=== PATIENT | male | born 1945 | race African-American/Black ===

== ENCOUNTER 2017-11-18 11:40 | Inpatient (IN) | payer MEDICARE ==
--- OUTSIDE RECORDS SUMMARY | 2017-11-18 11:43 | XMS REPORT | Clinical Summary ---
Author Author [facility] Organization [facility] Address Unknown Phone Unavailable Care Team Providers Care Passenger Booking Clerk Name Role Phone PCP Unavailable Allergies No Known Allergies Current Medications Prescription Sig. Disp. Refills Start End Date Status Date amantadine HCl Take 1 capsule (100 mg 60 capsule 0 08/06/20 Active (SYMMETREL) 100 mg total) by mouth 2 (two) 17 18 capsule times daily with breakfast and lunch. amLODIPine (NORVASC) 10 Take 1 tablet (10 mg 30 tablet 0 08/06/20 Active MG tablet total) by mouth daily. 17 18 arformoterol (BROVANA) 15 Take 2 mLs (15 mcg total) 120 mL 0 08/06/20 Active mcg/2 mL nebulizer by nebulization 2 (two) 17 solution times daily. aspirin 81 MG EC tablet Take 1 tablet (81 mg 30 tablet 0 08/06/20 Active total) by mouth daily. 17 18 atorvastatin (LIPITOR) 10 Take 1 tablet (10 mg 30 tablet 0 08/06/20 08/06/20 Active MG tablet total) by mouth nightly. 17 18 carvedilol (COREG) 25 MG Take 1 tablet (25 mg 60 tablet 0 08/06/20 08/06/20 Active tablet total) by mouth 2 (two) 17 18 times daily with breakfast and dinner. cetirizine-pseudoephedrin Take 1 tablet by mouth 2 20 tablet 0 08/06/20 Active e (ZYRTEC-D) 5 mg-120 mg (two) times daily. 17 18 per tablet gabapentin (NEURONTIN) Take 1 capsule (300 mg 120 capsule 0 08/06/20 08/06/20 Active 300 MG capsule total) by mouth 4 (four) 17 18 times daily. hydroxychloroquine Take 1 tablet (200 mg 60 tablet 0 08/06/20 Active (PLAQUENIL) 200 mg tablet total) by mouth 2 (two) 17 18 times daily. insulin NPH (HUMULIN Use as directed. 10 mL 0 08/06/20 08/06/20 Active N,NOVOLIN N) 100 unit/mL 17 18 injection insulin Administer NPH as 100 Syringe 1 08/06/20 Active syringe,safetyneedle 1 mL prescribed. 17 30 gauge x 5/16" Syrg lancets [facility] [place] Monitor fasting and 50 each 0 08/06/20 Active bedtime glucose levels. 17 levothyroxine (SYNTHROID, Take 1 tablet (150 mcg 30 tablet 0 08/07/20 08/07/20 Active LEVOTHROID) 150 MCG total) by mouth Every 17 18 tablet morning on an empty stomach. mycophenolate (CELLCEPT) Take 2 tablets (1,000 mg 120 tablet 0 08/06/20 Active 500 mg tablet total) by mouth 2 (two) 17 18 times daily. nystatin (MYCOSTATIN) Apply topically 2 (two) 15 g 0 08/06/20 Active 100,000 unit/gram powder times daily. 17 18 potassium chloride SA Take 1 tablet (10 mEq 30 tablet 0 08/07/20 Active (K-DUR,KLOR-CON) 10 MEQ total) by mouth daily. 17 18 tablet senna (SENOKOT) 8.6 mg Take 1 tablet (8.6 mg 30 tablet 0 08/06/20 Active tablet total) by mouth daily 17 18 with lunch. furosemide (LASIX) 20 MG Take 20 mg by mouth. Active tablet HYDROcodone-acetaminophen Take 1 tablet by mouth. 08/15/20 Active (NORCO 10-325) 10-325 mg 17 per tablet predniSONE (DELTASONE) 5 Take 10 mg by mouth. 08/15/20 Active MG tablet 17 traZODone (DESYREL) 50 MG Take 50 mg by mouth. Active tablet ipratropium-albuterol Inhale by mouth via Active (DUO-NEB) 0.5 mg-3 mg(2.5 inhaler. mg base)/3 mL nebulizer solution budesonide (PULMICORT) Inhale 0.5 mg by mouth Active 0.5 mg/2 mL nebulizer via inhaler. solution calcitriol (ROCALTROL) Take 0.5 mcg by mouth. Active 0.5 MCG capsule hydroCHLOROthiazide Take 12.5 mg by mouth. Active (HYDRODIURIL) 12.5 MG tablet losartan (COZAAR) 50 MG Take 50 mg by mouth. Active tablet atorvastatin (LIPITOR) 10 Take 10 mg by mouth 07/06/20 Discontin MG tablet nightly. 17 ued cyanocobalamin (VITAMIN Inject 1,000 mcg 07/06/20 Discontin B-12) 1,000 mcg/mL intramuscularly every 30 17 ued injection (thirty) days. levothyroxine (SYNTHROID, Take 150 mcg by mouth 07/06/20 Discontin LEVOTHROID) 150 MCG daily. 17 ued tablet gabapentin (NEURONTIN) Take 1 capsule (400 mg 0 06/15/20 07/06/20 Discontin 400 MG capsule total) by mouth 3 (three) 15 17 ued times daily. hydroxychloroquine Take 200 mg by mouth 2 07/06/20 Discontin (PLAQUENIL) 200 mg tablet (two) times daily. 17 ued sitaGLIPtin (JANUVIA) 50 Take 50 mg by mouth 07/17/20 Discontin MG tablet daily. 17 ued docusate sodium (COLACE) Take 100 mg by mouth 2 07/17/20 Discontin 100 MG capsule (two) times daily as 17 ued needed . HYDROcodone-acetaminophen Take 1 tablet by mouth 07/06/20 Discontin (NORCO 10-325) 10-325 mg every 6 (six) hours as 17 ued per tablet needed for Pain. losartan-hydrochlorothiaz Take 1 tablet by mouth 07/06/20 Discontin phillip (HYZAAR) 50-12.5 mg daily. 17 ued per tablet amLODIPine (NORVASC) 10 Take 1 tablet (10 mg 30 tablet 1 09/23/19 Discontin MG tablet total) by mouth daily. 17 17 ued furosemide (LASIX) 40 MG Take 1 tablet (40 mg 30 tablet 1 09/23/19 07/17/20 Discontin tablet total) by mouth daily. 17 17 ued metoprolol (LOPRESSOR) 50 Take 1 tablet (50 mg 60 tablet 1 09/23/19 07/17/20 Discontin MG tablet total) by mouth 2 (two) 17 17 ued times daily. insulin NPH Inject 25 Units 30 mL 1 09/23/19 07/06/20 Discontin (HUMULIN,NOVOLIN) 100 subcutaneously 2 (two) 17 17 ued unit/mL injection times daily before meals. insulin Administer NPH as 100 Syringe 1 09/23/19 08/06/20 Discontin syringe,safetyneedle 1 mL prescribed. 17 17 ued 30 gauge x 5/16" Syrg mometasone-formoterol Inhale 2 puffs by mouth 13 g 1 09/23/19 Discontin (DULERA) 100-5 via inhaler 2 (two) times 17 17 ued mcg/actuation inhaler daily. tiotropium (SPIRIVA) 18 Inhale 1 capsule (18 mcg 30 capsule 1 08/06/20 Discontin mcg inhalation capsule total) by mouth via 17 17 ued inhaler daily. albuterol HFA (PROVENTIL Inhale 1 puff by mouth 1 Inhaler 1 09/23/19 07/06/20 Discontin HFA) 90 mcg/actuation via inhaler every 6 (six) 17 17 ued inhaler hours as needed for Wheezing or Shortness of Breath. glimepiride (AMARYL) 1 MG Take 1 tablet (1 mg 30 tablet 1 09/23/19 07/06/20 Discontin tablet total) by mouth every 17 17 ued morning before breakfast. predniSONE (DELTASONE) 10 Take 1 tablet (10 mg 30 tablet 1 10/01/19 11/22/19 Discontin MG tablet total) by mouth daily. 17 17 ued glucometer (FREESTYLE) Monitor fasting and 1 each 0 09/23/19 Discontin [facility] [place] bedtime glucose levels. 17 17 ued lancets [facility] [place] Monitor fasting and 50 each 0 09/23/19 08/06/20 Discontin bedtime glucose levels. 17 17 ued BLOOD-GLUCOSE METER 1 strip by Miscellaneous 30 each 0 09/23/19 Discontin (BLOOD GLUCOSE TEST route 2 (two) times daily 17 17 ued STRIPS) ([facility] [place]) [facility] [place] Monitor fasting and bedtime glucose levels. predniSONE (DELTASONE) 20 Take 1 tablet (20 mg 30 tablet 0 11/22/19 07/06/20 Discontin MG tablet total) by mouth daily. 17 17 ued carvedilol (COREG) 25 MG Take 25 mg by mouth 2 07/06/20 Discontin tablet (two) times daily with 17 ued breakfast and dinner. azaTHIOprine (IMURAN) 50 Take 50 mg by mouth 07/17/20 Discontin mg tablet daily. 17 ued torsemide (DEMADEX) 20 MG Take 20 mg by mouth 07/17/20 Discontin tablet daily. 17 ued traZODone (DESYREL) 100 Take 100 mg by mouth 07/17/20 Discontin MG tablet nightly. 17 ued calcitriol (ROCALTROL) Take 0.5 mcg by mouth 08/06/20 Discontin 0.5 MCG capsule daily. 17 ued potassium chloride Take 10 mEq by mouth 07/06/20 Discontin (KLOR-CON) 10 MEQ CR daily. 17 ued tablet ondansetron (ZOFRAN) 4 MG Take 1 tablet (4 mg 12 tablet 0 12/03/19 12/10/19 tablet total) by mouth 2 (two) 17 17 times daily as needed for Nausea for up to 7 days. ondansetron (ZOFRAN) 4 MG Take 1 tablet (4 mg 12 tablet 0 12/03/19 12/10/19 tablet total) by mouth every 6 17 17 (six) hours for 7 days. ondansetron (ZOFRAN) 4 MG Take 1 tablet (4 mg 12 tablet 0 06/09/20 06/16/20 tablet total) by mouth every 6 17 17 (six) hours for 7 days. aspirin-calcium carbonate Take 81 mg by mouth. 07/17/20 Discontin 81 mg-300 mg calcium(777 17 ued mg) Tab fluticasone-salmeterol Inhale 1 puff by mouth 07/02/20 08/06/20 Discontin 232-14 mcg/actuation AePB via inhaler. 17 17 ued ipratropium (ATROVENT Inhale 2 puffs by mouth 01/25/20 08/06/20 Discontin HFA) 17 mcg/actuation via inhaler. 17 17 ued inhaler mycophenolate (CELLCEPT) 2 tab twice a day. 07/02/20 08/06/20 Discontin 500 mg tablet 17 17 ued promethazine (PHENERGAN) Take 25 mg by mouth. 05/02/20 08/06/20 Discontin 25 MG tablet 17 17 ued albuterol HFA (VENTOLIN Inhale 2 puffs by mouth 11/01/19 08/06/20 Discontin HFA) 90 mcg/actuation via inhaler. 17 17 ued inhaler amLODIPine (NORVASC) 10 TAKE ONE (1) TABLET(S) BY 06/20/20 08/06/20 Discontin MG tablet MOUTH ONCE A DAY. 17 17 ued atorvastatin (LIPITOR) 10 TAKE ONE (1) TABLET(S) BY 07/11/20 08/06/20 Discontin MG tablet MOUTH EVERY NIGHT. 16 17 ued carvedilol (COREG) 25 MG Take 25 mg by mouth. 08/06/20 Discontin tablet 17 ued cyanocobalamin (VITAMIN 1,000 mcg. 05/02/20 08/06/20 Discontin B-12) 1,000 mcg/mL 17 17 ued injection gabapentin (NEURONTIN) TAKE 1-2 CAPSULES BY 06/06/20 08/06/20 Discontin 400 MG capsule MOUTH 4 TIMES DAILY 17 17 ued glimepiride (AMARYL) 2 MG Take 2 mg by mouth. 01/18/20 08/06/20 Discontin tablet 17 17 ued HYDROcodone-acetaminophen Take 1 tablet by mouth. 06/10/20 08/06/20 Discontin (NORCO 10-325) 10-325 mg 17 17 ued per tablet hydroxychloroquine Take 200 mg by mouth. 02/01/20 08/06/20 Discontin (PLAQUENIL) 200 mg tablet 17 17 ued insulin NPH Inject 35 Units 08/06/20 Discontin (HUMULIN,NOVOLIN) 100 subcutaneously. 17 ued unit/mL injection levothyroxine (SYNTHROID, Take 150 mcg by mouth. 09/27/19 08/06/20 Discontin LEVOTHROID) 150 MCG 17 17 ued tablet losartan-hydroCHLOROthiaz TAKE ONE (1) TABLET(S) BY 08/08/20 08/06/20 Discontin phillip (HYZAAR) 50-12.5 mg MOUTH DAILY. 16 17 ued per tablet potassium chloride SA TAKE ONE (1) TABLET(S) BY 05/25/20 08/06/20 Discontin (K-DUR,KLOR-CON) 10 MEQ MOUTH ONCE A DAY. 17 17 ued tablet predniSONE (DELTASONE) 5 5 tab a day. Taper as 07/02/20 08/06/20 Discontin MG tablet directed by 17 17 ued diclofenac (VOLTAREN) 1 % Apply to painful area of 100 g 0 07/06/20 08/06/20 Discontin Gel back every 6 hours as 17 17 ued needed for pain. HYDROcodone-acetaminophen Take 1 tablet by mouth 20 tablet 0 07/06/20 07/16/20 (NORCO 10-325) 10-325 mg every 4 (four) hours as 17 17 per tablet needed for Pain for up to 10 days. Max Daily Amount: 6 tablets aspirin 81 MG EC tablet Take 81 mg by mouth 08/06/20 Discontin daily. 17 ued sulfamethoxazole-trimetho Take 1 tablet by mouth 3 08/06/20 Discontin prim (BACTRIM DS) 800-160 (three) times a week. 17 ued mg per tablet budesonide (PULMICORT) Take 2 mLs (0.5 mg total) 120 mL 0 08/06/20 09/24/19 Discontin 0.5 mg/2 mL nebulizer by nebulization 2 (two) 17 18 ued solution times daily. calcitriol (ROCALTROL) Take 1 capsule (0.5 mcg 30 capsule 0 08/06/20 09/24/19 Discontin 0.5 MCG capsule total) by mouth daily. 17 18 ued docusate sodium (COLACE) Take 1 capsule (100 mg 40 capsule 0 08/06/20 08/16/20 100 MG capsule total) by mouth 2 (two) 17 17 times daily for 10 days. ipratropium-albuterol Take 3 mLs by 540 mL 0 08/06/20 09/24/19 Discontin (DUO-NEB) 0.5 mg-3 mg(2.5 nebulization every 4 17 18 ued mg base)/3 mL nebulizer (four) hours for 360 solution days. lidocaine (LIDODERM) 5 % Place 1 patch onto the 20 patch 0 08/06/20 09/05/20 patch skin daily for 30 days 17 17 Remove & Discard patch within 12 hours or as directed by . losartan (COZAAR) 50 MG Take 1 tablet (50 mg 30 tablet 0 08/06/20 Discontin tablet total) by mouth daily. 17 18 ued hydroCHLOROthiazide Take 1 capsule (12.5 mg 30 capsule 0 08/06/20 Discontin (MICROZIDE) 12.5 mg total) by mouth daily. 17 18 ued capsule methylPREDNISolone Take 1 tablet (8 mg 7 tablet 0 08/06/20 08/13/20 (MEDROL) 8 MG tablet total) by mouth Medrol 17 17 nightly for 7 days. methylPREDNISolone Take 1 tablet (4 mg 21 tablet 0 08/06/20 (MEDROL) 4 MG tablet total) by mouth after 17 17 lunch for 7 days. methylPREDNISolone Take 1 tablet (4 mg 10 tablet 0 08/07/20 (MEDROL) 4 MG tablet total) by mouth taper 17 17 from 4 doses each day to 1 dose and stop for 7 days. sulfamethoxazole-trimetho Take 1 tablet (160 mg of 12 tablet 0 08/14/20 prim (BACTRIM DS) 800-160 trimethoprim total) by 17 17 mg per tablet mouth 3 (three) times a week for 7 days. traZODone (DESYREL) 50 MG Take 1 tablet (50 mg 30 tablet 0 08/06/20 09/05/20 tablet total) by mouth nightly 17 17 for 30 days. Active Problems Problem Noted Date Dehydration 11/20/2016 Mixed connective tissue disease ([facility]) 11/20/2016 ILD (interstitial lung disease) ([facility]) 11/20/2016 DM type 2 (diabetes mellitus, type 2) ([facility]) 11/20/2016 PVD (peripheral vascular disease) ([facility]) 11/20/2016 Hypokalemia 11/19/2016 Generalized weakness 11/19/2016 ILD (interstitial lung disease) ([facility]) 09/18/2016 COPD exacerbation ([facility]) 09/18/2016 Acute on chronic renal failure ([facility]) 06/14/2015 ATN (acute tubular necrosis) ([facility]) 06/14/2015 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 LORENA treated with BiPAP 06/14/2015 Acute GI bleeding 05/31/2015 Shortness of breath 02/01/2015 Pulmonary hemorrhage 09/20/2014 Lung nodule, multiple 09/20/2014 Duodenal ulcer 09/20/2014 Fever 09/14/2014 Leukocytosis 09/14/2014 Lupus 09/14/2014 Rheumatoid arthritis ([facility]) 09/14/2014 Anemia 09/11/2014 S/P AKA (above knee amputation) ([facility]) 04/14/2014 Overview: SNOMED/[place] [id number] 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 PAD (peripheral artery disease) s/p redo FEMPOP 04/01/2014 GI AVM (gastrointestinal arteriovenous vascular malformation) Encounters Date Type Specialty Care Team Description 09/24/2017 Emergency Emergency Medicine Tejal Lo MD Left elbow pain (Primary Dx) 09/24/2017 Orders Only General Internal Medicine 07/25/2017 [facility] Physical Medicine and Jose, Acute GI bleeding;ATN - Encounter Rehabilitation MD Jim (acute tubular necrosis) 08/06/2017 ([facility]);Generalized weakness;Status post bilateral above knee amputation ([facility]);Impaired mobility and ADLs;Gait abnormality;Minor neurocognitive disorder 07/18/2017 Orders Only General Internal Medicine 07/17/2017 [facility] Cardiology Carley Staton Acute GI bleeding - Encounter MD Agapito (Primary Dx);Physical 07/25/2017 Roslyn Mosley MD deconditioning;Generalize d weakness;Functional gait abnormality 07/06/2017 Emergency Emergency Medicine Analy Pruitt, Acute bilateral low back MD pain without sciatica (Primary Dx);Generalized weakness 06/09/2017 Emergency Emergency Medicine Toma Alberto MD Shortness of breath (Primary Dx);Nausea 06/09/2017 Orders Only General Internal Medicine 12/02/2016 Emergency Emergency Medicine Za Wiley MD Dehydration 11/19/2016 [facility] Cardiology Timothy Whitney MD Hypokalemia; Generalized - Encounter Cj Laureano, weakness;Elevated 11/21/2016 troponin;Shortness of [place], Karlo Smith MD breath 11/19/2016 Orders Only General Internal Medicine after 11/17/2016 Family History Medical History Relation Name Comments Colon cancer Father Heart disease Mother Prostate cancer Paternal Uncle Colon cancer Sister Relation Name Status Comments Father Mother Paternal Uncle Sister Social History Tobacco Use Types Packs/Day Years Used Date Former Smoker Quit: 01/26/1993 Alcohol Use Drinks/Week oz/Week Comments No none since age 37 Sex Assigned at Date Recorded Not on file Last Filed Vital Signs Vital Sign Reading Time Taken Blood Pressure 125/79 09/24/2017 3:31 PM [employer] SUPER[employer]OR Pulse 90 09/24/2017 3:12 PM [employer] SUPER[employer] Temperature 36.8 C (98.2 F) 09/24/2017 11:31 AM OUTBOUND SUPERVISOR Respiratory Rate 24 09/24/2017 3:31 PM OUTBOUND SUPERVISOR Oxygen Saturation 98% 09/24/2017 3:31 PM OUTBOUND SUPERVISOR Inhaled Oxygen - - Concentration Weight 145.2 kg (320 lb) 09/24/2017 11:31 AM OUTBOUND SUPERVISOR Height 182.9 cm (6' 0.01") 07/25/2017 2:00 PM OUTBOUND SUPERVISOR Body Mass Index 43.39 09/24/2017 11:31 AM OUTBOUND SUPERVISOR Plan of Treatment Not on file Implants Implanted Type Area Deliverer Merchandise Device Expiration Model / Identifier Date Serial / Lot Graft,Seal Ptfe Thin Wall Straight Graft/Patc Left: Leg TERUMO 2017 [id number] / [id number] - [id number] CARDIOVASCULAR [id number] Implanted: Qty: 1 on 03/29/2014 by SYSTEMS / Job Kern MD [id number] Results * RHYTHM STRIP - SCAN (09/25/2017 11:44 AM) Only the most recent of 3 results within the time period is included. * XR chest 1 view portable / bedside (09/24/2017 2:34 PM) Only the most recent of 4 results within the time period is included. Specimen Performing Laboratory GE RIS Narrative FINAL REPORT TECHNIQUE: Frontal chest radiographs dated 09/24/2017. CLINICAL HISTORY: Arm pain COMPARISON STUDY: Chest radiograph dated 07/28/2017 IMPRESSION: Lungs are clear. No pleural effusion or pneumothorax. Cardiomediastinal silhouette is normal in size. No pulmonary edema. No fracture. Signed: Kaden Allen MD Report Verified Date/Time:09/24/2017 14:44:52 Reading Location: [facility] Radiology Reading Room Procedure Note Interface, External Ris In - 09/24/2017 2:47 PM OUTBOUND SUPERVISOR FINAL REPORT TECHNIQUE: Frontal chest radiographs dated 09/24/2017. CLINICAL HISTORY: Arm pain COMPARISON STUDY: Chest radiograph dated 07/28/2017 IMPRESSION: Lungs are clear. No pleural effusion or pneumothorax. Cardiomediastinal silhouette is normal in size. No pulmonary edema. No fracture. Signed: Kaden Allen MD Report Verified Date/Time: 09/24/2017 14:44:52 Reading Location: [facility] Radiology Reading Room * Rapid Influenza A&B Screen (09/24/2017 2:32 PM) Component Value Ref Range Rapid Influenza A Antigen Negative Negative, Inconclusive Rapid influenza B Antigen Negative Negative, Inconclusive Specimen Performing Laboratory Nasal - Nasal Mucosa [facility] [address] [place] [address] * B-type natriuretic peptide (09/24/2017 2:09 PM) Component Value Ref Range BNP 66 0 - 100 pg/mL Specimen Performing Laboratory Blood - Arm, Right [facility] [address] [place] [address] * XR elbow 3 views min left (09/24/2017 1:39 PM) Specimen Performing Laboratory GE RIS Narrative FINAL REPORT TECHNIQUE: Frontal, lateral, and oblique radiographs of the left elbow dated 09/24/2017 HISTORY: Arm pain COMPARISON: None. FINDINGS: There is an anterior and posterior elbow joint effusion. A fracture is not visualized. No dislocation. Bones are osteopenic. No joint space narrowing. No bone erosion or soft tissue nodule seen. No radiodense foreign body or subcutaneous emphysema. Vascular calcifications are present. IMPRESSION: Anterior and posterior elbow joint effusion without a fracture visualized. If a fracture is clinically suspected, radiograph in 7-10 days can be obtained to exclude an occult fracture. Signed: Kaden Allen MD Report Verified Date/Time:09/24/2017 13:45:45 Reading Location: [facility] Radiology Reading Room Procedure Note Interface, External Ris In - 09/24/2017 1:48 PM OUTBOUND SUPERVISOR FINAL REPORT TECHNIQUE: Frontal, lateral, and oblique radiographs of the left elbow dated 09/24/2017 HISTORY: Arm pain COMPARISON: None. FINDINGS: There is an anterior and posterior elbow joint effusion. A fracture is not visualized. No dislocation. Bones are osteopenic. No joint space narrowing. No bone erosion or soft tissue nodule seen. No radiodense foreign body or subcutaneous emphysema. Vascular calcifications are present. IMPRESSION: Anterior and posterior elbow joint effusion without a fracture visualized. If a fracture is clinically suspected, radiograph in 7-10 days can be obtained to exclude an occult fracture. Signed: Kaden Allen MD Report Verified Date/Time: 09/24/2017 13:45:45 Reading Location: [facility] Radiology Reading Room * Rapid Troponin I ([facility] Only) (09/24/2017 1:20 PM) Only the most recent of 4 results within the time period is included. Component Value Ref Range Rapid Troponin I <0.05 <0.05 ng/mL Specimen Performing Laboratory Blood - Arm, Right [facility] [address] [place] [address] * CBC with platelet count + automated diff (09/24/2017 1:20 PM) Only the most recent of 14 results within the time period is included. Component Value Ref Range WBC 13.1 (H) 4.0 - 10.0 10e3/ L RBC 3.67 (L) 4.20 - 5.80 10e6/ L Hemoglobin 10.3 (L) 13.0 - 16.8 g/dL Hematocrit 32.8 (L) 40.0 - 50.0 % MCV 89.5 82.0 - 98.0 fL MCH 28.2 27.0 - 33.0 pg MCHC 31.5 (L) 32.0 - 36.0 g/dL RDW 14.4 (H) 10.3 - 14.2 % Platelets 267 150 - 430 10e3/ L MPV 7.8 6.5 - 10.5 fL % Neutros 77 % % Lymphs 10 % % Monos 12 % % Eos 1 % % Baso 1 % # Neutros 10.03 (H) 1.80 - 8.00 10e3/ L # Lymphs 1.31 (L) 1.48 - 4.50 10e3/ L # Monos 1.56 (H) 0.00 - 1.30 10e3/ L # Eos 0.12 0.00 - 0.50 10e3/ L # Baso 0.08 0.00 - 0.20 10e3/ L Specimen Performing Laboratory Blood - Arm, Right [facility] [address] [place] [address] * CBC with platelet count + automated diff (09/24/2017 1:20 PM) Only the most recent of 14 results within the time period is included. Specimen Performing Laboratory Blood Narrative The following orders were created for panel order CBC with platelet count + automated diff. Procedure Abnormality Status --------- - ------ CBC with platelet count ...[[id number]]AbnormalFinal result Please view results for these tests on the individual orders. * ECG 12 lead (09/24/2017 12:03 PM) Only the most recent of 6 results within the time period is included. Specimen Performing Laboratory GE MUSE Narrative Ventricular Rate 79 BPM Atrial Rate 79 BPM P-R Interval 162 ms QRS Duration 142 ms Q-T Interval 438 ms QTC Calculation(Bazett) 502 ms P [place] 46 degrees R [place] -55 degrees T [place] 129 degrees Sinus rhythm with occasional Premature ventricular complexes Right bundle branch block Left anterior fascicular block Bifascicular block T wave inversion in I and aVL Prolonged QT Abnormal ECG When compared with ECG of 24-JUL-2017 13:08, Premature ventricular complexes are now Present Nonspecific T wave abnormality now seen inferolateral leads Confirmed by MD LENNOX, EDEN ([id number]) on 09/25/2017 7:00:10 AM Procedure Note Interface, External Ris In - 09/25/2017 7:00 AM OUTBOUND SUPERVISOR Ventricular Rate 79 BPM Atrial Rate 79 BPM P-R Interval 162 ms QRS Duration 142 ms Q-T Interval 438 ms QTC Calculation(Bazett) 502 ms P [place] 46 degrees R [place] -55 degrees T [place] 129 degrees Sinus rhythm with occasional Premature ventricular complexes Right bundle branch block Left anterior fascicular block Bifascicular block T wave inversion in I and aVL Prolonged QT Abnormal ECG When compared with ECG of 24-JUL-2017 13:08, Premature ventricular complexes are now Present Nonspecific T wave abnormality now seen inferolateral leads Confirmed by MD LENNOX, EDEN ([id number]) on 09/25/2017 7:00:10 AM * POC-Glucose meter (08/06/2017 12:10 PM) Only the most recent of 87 results within the time period is included. Component Value Ref Range POC-Glucose Meter 127 (H)Comment: TESTED AT [facility] [address] [place] [address] 70 - 110 mg /dL [place] [id number] Specimen Performing Laboratory Blood [facility] [address] [address] * XR hand 3 views right (08/06/2017 10:37 AM) Specimen Performing Laboratory GE RIS Narrative FINAL REPORT Right hand three views 08/06/2017 at 1037 CLINICAL HISTORY: hx of rheumatoid arthritis, complaining of new R 3rd digit PIP pain COMPARISON: None available FINDINGS: The cortices are intact. There is normal bone alignment. There are very mild osteoarthritic changes in scattered interphalangeal joints. The soft tissues are within normal limits. IMPRESSION: No acute radiographic abnormalities. Signed: Sheng Hankins MD Report Verified Date/Time:08/06/2017 10:57:59 Reading Location: [facility] Radiology Reading Room Procedure Note Interface, External Ris In - 08/06/2017 11:29 AM OUTBOUND SUPERVISOR FINAL REPORT Right hand three views 08/06/2017 at 1037 CLINICAL HISTORY: hx of rheumatoid arthritis, complaining of new R 3rd digit PIP pain COMPARISON: None available FINDINGS: The cortices are intact. There is normal bone alignment. There are very mild osteoarthritic changes in scattered interphalangeal joints. The soft tissues are within normal limits. IMPRESSION: No acute radiographic abnormalities. Signed: Sheng Hankins MD Report Verified Date/Time: 08/06/2017 10:57:59 Reading Location: [facility] Radiology Reading Room * Manual Differential (08/05/2017 5:42 AM) Only the most recent of 6 results within the time period is included. Component Value Ref Range % Neutros (manual) 49 % % Lymphs (manual) 35 % % Monos (manual) 8 % % Eos (manual) 2 % % Baso (manual) 0 % % Metamyelo (manual) 4 (H) 0 - 0 % % Myelo (manual) 2 (H) 0 - 0 % # Neutros (manual) 3.28 1.80 - 8.00 K/ L # Lymphs (manual) 2.35 1.48 - 4.50 K/ L # Monos (manual) 0.54 0.00 - 1.30 K/ L # Eos (manual) 0.13 0.00 - 0.50 K/ L # Baso (manual) 0.00 0.00 - 0.20 K/ L # Metamyelo (manual) 0.27 (H) 0.00 - 0.00 K/ L # Myelo (manual) 0.13 (H) 0.00 - 0.00 K/ L Total Counted 100 nRBC (manual) 6 (H) 0 - 0 /100 WBC WBC Morphology Normal Platelet Morphology Normal Tear Drop Cells 1+ few Specimen Performing Laboratory Blood - Arm, [address] [address] * Basic Metabolic Panel (08/05/2017 5:42 AM) Only the most recent of 9 results within the time period is included. Component Value Ref Range Sodium 140 136 - 145 meq/L Potassium 3.8 3.5 - 5.1 meq/L Chloride 106 98 - 107 meq/L CO2 20 (L) 22 - 29 meq/L BUN 10 7 - 21 mg/dL Creatinine 0.83 0.57 - 1.25 mg/dL Glucose 85 70 - 105 mg/dL Calcium 9.2 8.4 - 10.2 mg/dL EGFR 111Comment: ESTIMATED GFR IS NOT ACCURATE mL/min/1.73 sq m CREATININE CLEARANCE IN PREDICTING GLOMERULAR FILTRATION RATE. ESTIMATED GFR IS NOT APPLICABLE FOR DIALYSIS PATIENTS. Specimen Performing Laboratory Blood - Arm, [address] [address] * Testosterone, free + total (07/29/2017 5:46 AM) Component Value Ref Range Testosterone 20 (L) 250 - 1100 ng/dL Comment: Males: Men with clinically significant hypogonadal symptoms and testosterone values repeatedly in the range of the 200-300 ng/dL or less, may benefit from testosterone treatment after adequate risk and benefits counseling. Testosterone, Free 7.3 (L) 30.0 - 135.0 pg/mL Comment: This test was developed and its analytical performance characteristics have been determined by [facility]. It has not been cleared or approved by the US Food and Drug Administration. This assay has been validated pursuant to the CLIA regulations and is used for clinical purposes. Specimen Performing Laboratory Blood - Arm, Left [facility] [address] [place] [address] Narrative Performing Lab *S[facility], [address] [place] [address] B Rubina TORRES, FCAP * T4, free (07/29/2017 5:46 AM) Component Value Ref Range Free T4 0.80 0.70 - 1.48 ng/dL Specimen Performing Laboratory Blood - Arm, Left [facility] [address] [place] [address] * XR chest 2 views (07/28/2017 7:39 PM) Only the most recent of 2 results within the time period is included. Specimen Performing Laboratory GE RIS Narrative FINAL REPORT EXAMINATION: 2 VIEW CHEST INDICATION: COUGH IMPRESSION: Compared with chest radiograph 07/18/2017, 07/06/2017 Curvilinear and reticular opacities are again noted in both lungs, most conspicuous in the perihilar regions and lung bases. Morphology, distribution and relative stability favor scarring and/or subsegmental atelectasis. No definite evidence of new lung consolidation, pulmonary edema, large pleural effusion or pneumothorax. The heart is enlarged as before. Soft tissue fullness of the mediastinal contours is stable. No evidence of an acute osseous abnormality or pneumothorax. Elevation of the left hemidiaphragm is again noted. Signed: Meghan Quiroga MD Report Verified Date/Time:07/28/2017 21:23:01 Reading Location: [address] Reading Room Procedure Note Interface, External Ris In - 07/28/2017 9:25 PM OUTBOUND SUPERVISOR FINAL REPORT EXAMINATION: 2 VIEW CHEST INDICATION: COUGH IMPRESSION: Compared with chest radiograph 07/18/2017, 07/06/2017 Curvilinear and reticular opacities are again noted in both lungs, most conspicuous in the perihilar regions and lung bases. Morphology, distribution and relative stability favor scarring and/or subsegmental atelectasis. No definite evidence of new lung consolidation, pulmonary edema, large pleural effusion or pneumothorax. The heart is enlarged as before. Soft tissue fullness of the mediastinal contours is stable. No evidence of an acute osseous abnormality or pneumothorax. Elevation of the left hemidiaphragm is again noted. Signed: Meghan Quiroga MD Report Verified Date/Time: 07/28/2017 21:23:01 Reading Location: [address] Reading Room * TSH/Free T4 If Indicated (07/27/2017 5:45 AM) Only the most recent of 2 results within the time period is included. Component Value Ref Range TSH 0.70 0.35 - 4.94 uIU/mL Specimen Performing Laboratory Blood - Arm, [address] [address] * Prothrombin time/INR (07/27/2017 5:45 AM) Component Value Ref Range Protime 13.4 11.7 - 14.7 seconds INR 1.0 <=5.9 Specimen Performing Laboratory Blood - Arm, [address] [address] Narrative RECOMMENDED COUMADIN/WARFARIN INR THERAPY RANGES STANDARD DOSE: 2.0 - 3.0 Includes: PROPHYLAXIS for venous thrombosis, systemic embolization; TREATMENT for venous thrombosis and/or pulmonary embolus. HIGH RISK: Target INR is 2.5-3.5 for patients with mechanical heart valves. * Comprehensive metabolic panel (07/27/2017 5:45 AM) Only the most recent of 4 results within the time period is included. Component Value Ref Range Protein, Total 6.1 6.0 - 8.3 gm/dL Albumin 3.5 3.5 - 5.0 g/dL Alkaline Phosphatase 63 40 - 150 U/L Total Bilirubin 0.4 0.2 - 1.2 mg/dL Sodium 139 136 - 145 meq/L Potassium 3.8 3.5 - 5.1 meq/L Chloride 103 98 - 107 meq/L CO2 23 22 - 29 meq/L BUN 14 7 - 21 mg/dL Creatinine 0.91 0.57 - 1.25 mg/dL Glucose 95 70 - 105 mg/dL Calcium 9.6 8.4 - 10.2 mg/dL AST 27 5 - 34 U/L ALT 71 (H) 6 - 55 U/L EGFR 100Comment: ESTIMATED GFR IS NOT ACCURATE mL/min/1.73 sq m CREATININE CLEARANCE IN PREDICTING GLOMERULAR FILTRATION RATE. ESTIMATED GFR IS NOT APPLICABLE FOR DIALYSIS PATIENTS. Specimen Performing Laboratory Blood - Arm, Left [address] [address] * Urinalysis w/ Microscopic (07/26/2017 5:37 AM) Only the most recent of 3 results within the time period is included. Component Value Ref Range Color, UA Yellow Clarity, UA Clear Specific Gordon, UA 1.018 1.001 - 1.035 pH, UA 5.5 5.0 - 8.0 Protein, UA 20 mg/dL (A) Negative Glucose, UA Negative Negative Ketones, UA Negative Negative Bilirubin, UA Negative Negative Blood, UA Negative Negative Nitrite, UA Negative Negative Leukocytes, UA Negative Negative Urobilinogen, UA 0.2 0.2 - 1.0 mg/dL RBC, UA 0 /HPF WBC, UA 1 /HPF Mucus Few Squam Epithel, UA <1 /HPF Hyaline Casts, UA 5 /LPF Specimen Source Urine, Voided Specimen Performing Laboratory Urine - Urine, Voided [address] [address] * Phosphorus (07/25/2017 4:43 AM) Only the most recent of 2 results within the time period is included. Component Value Ref Range Phosphorus 3.8 2.3 - 4.7 mg/dL Specimen Performing Laboratory Blood [address] [address] * Magnesium (07/25/2017 4:43 AM) Only the most recent of 2 results within the time period is included. Component Value Ref Range Magnesium 1.0 (LL) 1.6 - 2.6 mg/dL Specimen Performing Laboratory Blood [address] [address] * TRANSFUSION SERVICE REPORT - SCAN (07/20/2017 5:41 PM) * Vitamin B12 and Folate (07/19/2017 6:43 PM) Component Value Ref Range Vitamin B12 >2000 (H) 213 - 816 pg/mL Folate 17.3 >=7.0 ng/mL Specimen Performing Laboratory Blood [address] [address] * Iron, TIBC, % sat. (without ferritin) (07/19/2017 6:43 PM) Component Value Ref Range Iron 73 40 - 160 ug/dL TIBC 256 250 - 450 ug/dL Iron % Saturation 29 20 - 55 % Specimen Performing Laboratory Blood [address] [address] * Direct AHG (IZABELLA)/Direct Janneth (07/19/2017 6:43 PM) Component Value Ref Range Direct AHG-IGG NEGATIVE Direct AHG-C3B, C3D NEGATVIE Specimen Performing Laboratory Blood [address] [address] * Protein electrophoresis, serum (07/19/2017 6:43 PM) Component Value Ref Range Albumin Fraction 2.9 (L)Comment: RR: 3.8-4.8 g/dL 3.5 - 5.5 gm/dL Alpha 1 Fraction 0.3Comment: RR: 0.2-0.3 g/dL 0.2 - 0.4 gm/dL Alpha 2 Fraction 1.1 (H) 0.5 - 0.9 gm/dL Beta Fraction 0.6 0.6 - 1.1 gm/dL Gamma Globulin Fraction 0.4 (L)Comment: RR: 0.8-1.7 g/dL 0.7 - 1.7 gm/dL Interpretation Evaluation revelas one faint restricted band migrating in the gamma region. Consider immunofixation analysis if indicated. Pathologist: Comment: Test performed and interpreted by [facility]. Protein, Total 5.3 (L)Comment: RR: 6.1-8.1 g/dL 6.0 - 8.5 gm/dL Specimen Performing Laboratory Blood [address] [address] * Ferritin (07/19/2017 6:43 PM) Component Value Ref Range Ferritin 1207 (H) 5 - 275 ng/mL Specimen Performing Laboratory Blood [address] [address] * NM lung scan (V/Q) (07/18/2017 4:45 PM) Specimen Performing Laboratory RIS Narrative FINAL REPORT PROCEDURE: V/Q LUNG SCAN CPT CODE: 29557 INDICATION: Dyspnea, tachycardia PROTOCOL: 10.9 mCi ofXe-133 gas was administered by inhalation. Rebreathing/washout images were obtained in the anterior and the posterior projections.4.3 mCi of Tc-99m MAA was then injected intravenously, and static perfusion images were obtained in multiple projections. FINDINGS: Ventilation: Initial tracer distribution is mildly decreased in the right upper lung field and in the lung base bilaterally. Washout proceeds normally. Perfusion:Tracer distribution is segmentally decreased in the right upper lung field anteriorly and nonsegmentally irregular in the lower lung niño. IMPRESSION: 1. Very low probability of acute pulmonary embolization. 2. Compared to the most recent previous study of 09/17/2016, the right apical defect remains. No new perfusion abnormalities are identified. 3. Mild parenchymal and/or atelectatic changes bilaterally. Signed: Hawa Carlos MD Report Verified Date/Time:07/18/2017 17:18:45 Reading Location: [address] Reading Room Procedure Note Interface, External Ris In - 07/18/2017 5:20 PM CDT FINAL REPORT PROCEDURE: V/Q LUNG SCAN CPT CODE: 73261 INDICATION: Dyspnea, tachycardia PROTOCOL: 10.9 mCi of Xe-133 gas was administered by inhalation. Rebreathing/washout images were obtained in the anterior and the posterior projections. 4.3 mCi of Tc-99m MAA was then injected intravenously, and static perfusion images were obtained in multiple projections. FINDINGS: Ventilation: Initial tracer distribution is mildly decreased in the right upper lung field and in the lung base bilaterally. Washout proceeds normally. Perfusion: Tracer distribution is segmentally decreased in the right upper lung field anteriorly and nonsegmentally irregular in the lower lung niño. IMPRESSION: 1. Very low probability of acute pulmonary embolization. 2. Compared to the most recent previous study of 09/17/2016, the right apical defect remains. No new perfusion abnormalities are identified. 3. Mild parenchymal and/or atelectatic changes bilaterally. Signed: Hawa Carlos MD Report Verified Date/Time: 07/18/2017 17:18:45 Reading Location: [facility] [address] [facility] [address] Reading Room * Urine culture (07/18/2017 6:55 AM) Component Value Ref Range Result >100,000 col/mL skin adria Specimen Performing Laboratory Urine - Urine, Voided [address] [address] * Blood culture (07/17/2017 11:27 PM) Only the most recent of 2 results within the time period is included. Component Value Ref Range Result No growth in 5 days Specimen Performing Laboratory Blood - Arm, [place] [address] * XR chest PA or AP 1 view in dept (07/06/2017 8:32 PM) Specimen Performing Laboratory GE RIS Narrative FINAL REPORT History: Back pain and shortness of breath. Comparison: 06/09/2017 Findings: A single view of the chest is submitted. The examination is limited by lordotic positioning, low lung volumes and patient body habitus. The cardiac silhouette is prominent in size but magnified by low lung volumes and portable technique. Curvilinear opacities in the lower lungs may reflect atelectasis or scarring. There is no focal consolidation, pneumothorax or large pleural effusion or acute bony abnormality. Signed: Fer Ramos MD Report Verified Date/Time:07/06/2017 20:38:20 Reading Location: [address] Reading Room Procedure Note Interface, External Ris In - 07/06/2017 8:40 PM CDT FINAL REPORT History: Back pain and shortness of breath. Comparison: 06/09/2017 Findings: A single view of the chest is submitted. The examination is limited by lordotic positioning, low lung volumes and patient body habitus. The cardiac silhouette is prominent in size but magnified by low lung volumes and portable technique. Curvilinear opacities in the lower lungs may reflect atelectasis or scarring. There is no focal consolidation, pneumothorax or large pleural effusion or acute bony abnormality. Signed: Fer Ramos MD Report Verified Date/Time: 07/06/2017 20:38:20 Reading Location: [address] Reading Room * CT spine lumbar without IV contrast (07/06/2017 8:32 PM) Specimen Performing Laboratory [email or web address] RIS Narrative FINAL REPORT CT, SPINE, LUMBAR, WO CONTRAST INDICATION: severe low back pain, weakness COMPARISON: None TECHNIQUE: Contiguous noncontrast axial images of the lumbar spine are obtained. Computer reformatted coronal and sagittal images are also provided. Axial images are available in both bone and soft tissue algorithm. DOSE REDUCTION: Dose modulation, iterative reconstruction, and/or weight-based adjustment of the mA/kV was utilized to reduce the radiation dose to as low as reasonably achievable. FINDINGS: Lumbar vertebral bodies are intact and exhibit preserved alignment. No fracture is identified. Generalized demineralization noted. The pedicles are congenitally short. Osteoarthritic changes are noted to affect the facet joints throughout the imaged volume. Ligamentous changes involving the ligamentum flava are beyond the resolution of the current examination. Posterior disc protrusions are present at L3-4, L4-5 and L5-S1, creating moderate canal narrowing at these levels. No critical foraminal stenosis is evident; there is mild to moderate bilateral narrowing at L4-5 and L5-S1 with conceivable contact on the exiting L5 nerve roots at L5-S1. Review of paraspinal soft tissue structures reveals mild edema over the lumbar lordosis, which may reflect sustained common seen. There is mild disuse atrophy of the posterior paraspinal musculature. Psoas complexes are grossly symmetric. Dense calcific atherosclerosis affects a normal caliber aorta. An inferior vena cava filter is present at the L2-3 level. IMPRESSION: Multilevel degenerative changes superimposed on congenitally short pedicles result in moderate canal narrowing at L3-4, L4-5 and L5-S1. 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 Conceivable contact on the exiting L5 nerve roots at L5-S1, particularly in upright position. Signed: JR Venegas Robert MD Report Verified Date/Time:07/06/2017 20:43:51 Reading Location: [facility] C013Y CT Body Reading Room Procedure Note Interface, External Ris In - 07/06/2017 8:46 PM CDT FINAL REPORT CT, SPINE, LUMBAR, WO CONTRAST INDICATION: severe low back pain, weakness COMPARISON: None TECHNIQUE: Contiguous noncontrast axial images of the lumbar spine are obtained. Computer reformatted coronal and sagittal images are also provided. Axial images are available in both bone and soft tissue algorithm. DOSE REDUCTION: Dose modulation, iterative reconstruction, and/or weight-based adjustment of the mA/kV was utilized to reduce the radiation dose to as low as reasonably achievable. FINDINGS: Lumbar vertebral bodies are intact and exhibit preserved alignment. No fracture is identified. Generalized demineralization noted. The pedicles are congenitally short. Osteoarthritic changes are noted to affect the facet joints throughout the imaged volume. Ligamentous changes involving the ligamentum flava are beyond the resolution of the current examination. Posterior disc protrusions are present at L3-4, L4-5 and L5-S1, creating moderate canal narrowing at these levels. No critical foraminal stenosis is evident; there is mild to moderate bilateral narrowing at L4-5 and L5-S1 with conceivable contact on the exiting L5 nerve roots at L5-S1. Review of paraspinal soft tissue structures reveals mild edema over the lumbar lordosis, which may reflect sustained common seen. There is mild disuse atrophy of the posterior paraspinal musculature. Psoas complexes are grossly symmetric. Dense calcific atherosclerosis affects a normal caliber aorta. An inferior vena cava filter is present at the L2-3 level. IMPRESSION: Multilevel degenerative changes superimposed on congenitally short pedicles result in moderate canal narrowing at L3-4, L4-5 and L5-S1. 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 Conceivable contact on the exiting L5 nerve roots at L5-S1, particularly in upright position. Signed: JR Venegas Robert MD Report Verified Date/Time: 07/06/2017 20:43:51 Reading Location: [facility] B1 C013Y CT Body Reading Room * Urinalysis w/Microscopic + Reflex to Culture - Clear Catch (07/06/2017 7:49 PM) Component Value Ref Range Color, UA Yellow Clarity, UA Clear Specific Gordon, UA 1.025 1.001 - 1.035 pH, UA 5.5 5.0 - 8.0 Protein, UA Negative Negative Glucose, UA Negative Negative Ketones, UA Negative Negative Bilirubin, UA Negative Negative Blood, UA Negative Negative Nitrite, UA Negative Negative Leukocytes, UA Negative Negative Urobilinogen, UA 0.2 0.2 - 1.0 mg/dL Bacteria, UA Occasional Mucus Moderate RBC, UA <5 /HPF WBC, UA <5 /HPF SQUAMOUS EPITHELIAL <5 /HPF Specimen Source Specimen Performing Laboratory Urine - Urine, Voided [facility] [address] [place] [address] * ED ECG Interpretation (06/09/2017 10:28 AM) Only the most recent of 2 results within the time period is included. Toma Connolly MD 06/09/2017 10:28 AM ECG/EKG Interpretation Date/Time: 06/09/2017 8:39 AM Performed by: TOMA ALBERTO Authorized by: TOMA ALBERTO The ECG was interpreted by ED physician. This ECG was compared with previous ECG (vs. 12/02/2016 )(s).The ECG is interpreted as sinus rhythm. Rate is normal rate. Heart rate is 85 BPM. 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 ST segments normal. T waves abnormal. T-wave inversion in lead(s) aVL, V1 and V2. [place] is left. Other findings: no other findings. Clinical Impression: abnormal ECGECG reviewed and does not meet STEMI criteria. Patient tolerance: Patient tolerated the procedure well with no immediate complications * Rapid CK-MB ([facility] Only) (06/09/2017 8:46 AM) Only the most recent of 2 results within the time period is included. Component Value Ref Range Rapid CKMB 3.0 0.0 - 4.3 ng/mL Specimen Performing Laboratory Blood [facility] [address] [place] [address] * D-dimer, quantitative (06/09/2017 8:46 AM) Component Value Ref Range D-Dimer, Quant 0.70 (H) <0.50 MG/L FEU Specimen Performing Laboratory Blood [facility] , [facility] [address] [place] [address] Narrative REGARDING D-DIMER RESULTS: Results of this D-Dimer test should always be interpreted in conjunction with the patient's medical history, clinical presentation and other findings. DVT clinical diagnosis should not be based on the results of [place] D-Dimer alone. * Lipase (11/21/2016 5:21 AM) Only the most recent of 2 results within the time period is included. Component Value Ref Range Lipase 65 8 - 78 U/L Specimen Performing Laboratory Blood - Arm, [place] [id number] * Hepatic function panel (11/21/2016 5:21 AM) Only the most recent of 2 results within the time period is included. Component Value Ref Range Protein, Total 7.0 6.0 - 8.3 gm/dL Albumin 4.0 3.5 - 5.0 g/dL Total Bilirubin 0.3 0.2 - 1.2 mg/dL Bilirubin, Direct 0.1 0.1 - 0.5 mg/dL Alkaline Phosphatase 46 40 - 150 U/L AST 23 5 - 34 U/L ALT 73 (H) 6 - 55 U/L Specimen Performing Laboratory Blood - Arm, [place] [address] * Troponin I (11/20/2016 12:23 PM) Component Value Ref Range Troponin I 0.05 (H) 0.00 - 0.03 ng/mL Specimen [place] [address] Narrative Effective 08/03/2014: Reference Range Change New: 0.00-0.03 Previous 0.00-0.15 Troponin I (TnI) levels must be interpreted in the context of the presenting symptoms and the clinical findings. Elevated TnI levels indicate myocardial damage, but are not specific for ischemic heart disease. Elevated TnI levels are seen in patients with other cardiac conditions (including myocarditis and congestive heart failure), and slight TnI elevations occur in patients with other conditions, including sepsis, renal failure, acidosis, acute neurological disease, and persistent tachyarrhythmia. * Creatine Kinase (CK), Total and MB (11/20/2016 12:23 PM) Component Value Ref Range Total CK 125 29 - 200 U/L CK-MB 1.7 0.0 - 6.6 ng/mL MB Relative Index 1.4 % Specimen Performing Laboratory Blood [facility] [address] [address] Narrative Effective 08/03/2014: CK-MB Reference Range Change New: 0.0-6.6Previous: 0.0-4.9 CK-MB Reference Range: <6.7Normal 6.7-10.0Borderline >10.0 Abnormal * US abdomen complete (11/20/2016 7:08 AM) Specimen Performing Laboratory [facility] Narrative FINAL REPORT Abdominal ultrasonography, 11/20/2016 COMPARISON: None Transabdominal scanning of the abdomen was performed using nagy scale and limited Doppler sequences. The liver is borderline enlarged at 17.3 cm in length. There is increased echogenicity consistent with fatty changes. No definite focal masses are seen. Gallbladder appears normal without stones or mural thickening, pericholecystic edema is identified. The common bile duct is normal in caliber 3 mm. The portal vein is patent and normal in diameter at 1.3 cm. The spleen appears normal in size measuring 9.9 cm in length. No focal masses are observed although because of the patient's body habitus and gas in the adjacent stomach, and the spleen is not particularly well seen. The kidneys are normal in size is measuring 11.3 cm in length on the right and 12 cm on the left. There are multiple cysts present bilaterally, the largest of which on the right measures 3.2 cm and, on the left, 2.6 cm. There are no definite masses, stones or changes of hydronephrosis. Blood flow can be seen in both kidneys. Echogenicity is grossly within normal limits.. Portions of the neck and body of the pancreas are seen and appear grossly normal. The remainder is obscured by overlying bowel gas. The abdominal aorta is nondilated. Upper portion of the inferior vena cava is partially seen and grossly unremarkable. CONCLUSION: Fatty changes in the liver. Renal cysts. Signed: Diamond Purvis MD Report Verified Date/Time:11/20/2016 09:42:41 Reading Location: [facility] [id number] Ultrasound Reading Room Procedure Note Interface, External Ris In - 11/20/2016 9:44 AM OUTBOUND SUPERVISOR FINAL REPORT Abdominal ultrasonography, 11/20/2016 COMPARISON: None Transabdominal scanning of the abdomen was performed using nagy scale and limited Doppler sequences. The liver is borderline enlarged at 17.3 cm in length. There is increased echogenicity consistent with fatty changes. No definite focal masses are seen. Gallbladder appears normal without stones or mural thickening, pericholecystic edema is identified. The common bile duct is normal in caliber 3 mm. The portal vein is patent and normal in diameter at 1.3 cm. The spleen appears normal in size measuring 9.9 cm in length. No focal masses are observed although because of the patient's body habitus and gas in the adjacent stomach, and the spleen is not particularly well seen. The kidneys are normal in size is measuring 11.3 cm in length on the right and 12 cm on the left. There are multiple cysts present bilaterally, the largest of which on the right measures 3.2 cm and, on the left, 2.6 cm. There are no definite masses, stones or changes of hydronephrosis. Blood flow can be seen in both kidneys. Echogenicity is grossly within normal limits.. Portions of the neck and body of the pancreas are seen and appear grossly normal. The remainder is obscured by overlying bowel gas. The abdominal aorta is nondilated. Upper portion of the inferior vena cava is partially seen and grossly unremarkable. CONCLUSION: Fatty changes in the liver. Renal cysts. Signed: Diamond Purvis MD Report Verified Date/Time: 11/20/2016 09:42:41 Reading Location: [facility] B1 [id number] Ultrasound Reading Room after 11/17/2016
--- OUTSIDE RECORDS SUMMARY | 2017-11-18 11:43 | XMS REPORT ---
Author Author [facility] Address Unknown Phone Unavailable Care Team Providers Care Editor Sound Name Role Phone DONNA HOWE Unavailable Unavailable MIRACLE BUSTAMANTE Unavailable Unavailable BRENDON MOTTA Unavailable Unavailable BETINA, KRISTINA Unavailable Unavailable TOMA ALBERTO Unavailable Unavailable MAYA, ORLIN Unavailable Unavailable YADY, ELIZABETH Unavailable Unavailable Problems This patient has no known problems. Allergies, Adverse Reactions, Alerts This patient has no known allergies or adverse reactions. Medications This patient has no known medications. Results Test Description Test Time Test Comments Text Results Atomic Results Result Comments RAPID INFLUENZA A&B SCREEN 2017-09-24 14:57:00 RAPID INFLUENZA A AG (TorqBakAKER) (test wubt=9535) Negative Negative, Inconclusive RAPID INFLUENZA B AG (BEAKER) (test zfjp=2616) Negative Negative, Inconclusive RAD, CHEST, 1 VIEW, NON [id number] 14:44:00Reason for exam:->ARM PAINShould this be performed at the bedside?->NoFINAL REPORT TECHNIQUE: Frontal chest radiographs dated 09/24/2017. CLINICAL HISTORY: Arm pain COMPARISON STUDY: Chest radiograph dated 07/28/2017 IMPRESSION:Lungs are clear. No pleural effusion or pneumothorax. Cardiomediastinal silhouette is normal in size. No pulmonary edema. No fracture. Signed: Kaden Allen Verified Date/Time: 09/24/2017 14:44:52 Reading Location: [facility] Radiology Reading Room Electronically signed by: KADEN ALLEN on 2017 02:44 PM B-TYPE NATRIURETIC FACTOR (BNP)2017-09-24 14:29:00* Test Item Value Reference Range Comments B-TYPE NATRIURETIC PEPTIDE (BEAKER) (test irkz=306) 66 pg/mL 0-100 RAPID TROPONIN [id number] 13:47:00* Test Item Value Reference Range Comments RAPID TROPONIN I (BEKENYON) (test ihht=9352) < ng/mL <0.05 RAD, ELBOW, 3 VIEWS, [id number] 13:45:00Reason for exam:->ARM PAINShould this be performed at the bedside?->NoFINAL REPORT TECHNIQUE: Frontal, lateral, and oblique radiographs of the left elbow dated 09/24 HISTORY: Arm pain COMPARISON: None. FINDINGS:There is an anterior and posterior elbow joint effusion. A fracture is not visualized. No dislocation. Bones are osteopenic. No joint space narrowing. No bone erosion or soft tissue nodule seen. No radiodense foreign body or subcutaneous emphysema. Vascular calcifications are present. IMPRESSION:Anterior and posterior elbow joint effusion without a fracture visualized. If a fracture is clinically suspected, radiograph in 7-10 days can be obtained to exclude an occult fracture. Signed: Kaden Allen MDReport Verified Date/Time: 09/24/2017 13:45:45 Reading Location: [facility] Radiology Reading Room W/PLT COUNT & AUTO [id number] 13:35:00* Test Item Value Reference Range Comments WHITE BLOOD CELL COUNT (BEAKER) (test kygl=677) 13.1 10e3/ L 4.0-10.0 RED BLOOD CELL COUNT (BEAKER) (test leru=898) 3.67 10e6/ L 4.20-5.80 HEMOGLOBIN (BEAKER) (test ioxg=212) 10.3 g/dL 13.0-16.8 HEMATOCRIT (BEAKER) (test piee=462) 32.8 % 40.0-50.0 MEAN CORPUSCULAR VOLUME (BEAKER) (test hywb=016) 89.5 fL 82.0-98.0 MEAN CORPUSCULAR HEMOGLOBIN (BEAKER) (test oukz=975) 28.2 pg 27.0-33.0 MEAN CORPUSCULAR HEMOGLOBIN CONC (BEAKER) (test bcea=254) 31.5 g/dL 32.0- 36.0 RED CELL DISTRIBUTION WIDTH (BEAKER) (test ieyx=671) 14.4 % 10.3-14.2 PLATELET COUNT (BEAKER) (test nqxf=776) 267 10e3/ L 150-430 MEAN PLATELET VOLUME (BEAKER) (test jhsm=904) 7.8 fL 6.5-10.5 NEUTROPHILS RELATIVE PERCENT (BEAKER) (test pehx=079) 77 % LYMPHOCYTES RELATIVE PERCENT (BEAKER) (test scjm=416) 10 % MONOCYTES RELATIVE PERCENT (BEAKER) (test ezyo=663) 12 % EOSINOPHILS RELATIVE PERCENT (BEAKER) (test zleq=477) 1 % BASOPHILS RELATIVE PERCENT (BEAKER) (test yrrk=246) 1 % NEUTROPHILS ABSOLUTE COUNT (BEAKER) (test jhtg=197) 10.03 10e3/ L 1.80-8.00 LYMPHOCYTES ABSOLUTE COUNT (BEAKER) (test ldvr=895) 1.31 10e3/ L 1.48-4.50 MONOCYTES ABSOLUTE COUNT (BEAKER) (test cxwh=786) 1.56 10e3/ L 0.00-1.30 EOSINOPHILS ABSOLUTE COUNT (BEAKER) (test qiuh=765) 0.12 10e3/ L 0.00-0.50 BASOPHILS ABSOLUTE COUNT (BEAKER) (test ifqs=648) 0.08 10e3/ L 0.00-0.20 POCT-GLUCOSE [id number] 12:14:00* Test Item Value Reference Range Comments POC-GLUCOSE METER (BEAKER) (test mrea=8536) 127 mg/dL 70-110 TESTED AT [facility] [address] [facility] [address] RAD, HAND, 3 VIEWS, [id number] 10:57:00Reason for exam:->hx of rheumatoid arthritis, complaining of new R 3rd digit PIP painFINAL REPORT Right hand three views 08/06/2017 at 1037 CLINICAL HISTORY: hx of rheumatoid arthritis, complaining of new R 3rd digit PIP pain COMPARISON: None available FINDINGS: The cortices are intact. There is normal bone alignment. There are very mild osteoarthritic changes in scattered interphalangeal joints.The soft tissues are within normal limits. IMPRESSION: No acute radiographic abnormalities. Signed: Sheng Hankins Verified Date/Time : 08/06/2017 10:57:59 Reading Location: [facility] Radiology Reading Room - GLUCOSE [id number] 05:53:00* Test Item Value Reference Range Comments POC-GLUCOSE METER (BEAKER) (test plri=8717) 176 mg/dL 70-110 TESTED AT [facility] [address] [facility] [address] POCT-GLUCOSE [id number] 20:29:00* Test Item Value Reference Range Comments POC-GLUCOSE METER (BEAKER) (test lgdw=3782) 154 mg/dL 70-110 TESTED AT [address] [address] POCT-GLUCOSE [id number] 15:49:00* Test Item Value Reference Range Comments POC-GLUCOSE METER (BEAKER) (test hybt=0779) 129 mg/dL 70-110 TESTED AT [address] [address] POCT-GLUCOSE [id number] 11:49:00* Test Item Value Reference Range Comments POC-GLUCOSE METER (BEAKER) (test kcmf=8029) 93 mg/dL 70-110 TESTED AT [place] [id number] [facility] [address] CBC W/PLT COUNT & AUTO [id number] 10:13:00* Test Item Value Reference Range Comments WHITE BLOOD CELL COUNT (BEAKER) (test cpvq=462) 6.7 K/ L 3.5-10.5 RED BLOOD CELL COUNT (BEAKER) (test fase=650) 3.53 M/ L 4.63-6.08 HEMOGLOBIN (BEAKER) (test ptzt=392) 10.1 GM/DL 13.7-17.5 HEMATOCRIT (BEAKER) (test okgo=272) 34.2 % 40.1-51.0 MEAN CORPUSCULAR VOLUME (BEAKER) (test zxno=606) 96.9 fL 79.0-92.2 MEAN CORPUSCULAR HEMOGLOBIN (BEAKER) (test bdxt=090) 28.6 pg 25.7-32.2 MEAN CORPUSCULAR HEMOGLOBIN CONC (BEAKER) (test rvrm=759) 29.5 GM/DL 32.3- 36.5 RED CELL DISTRIBUTION WIDTH (BEAKER) (test oynx=058) 16.0 % 11.6-14.4 PLATELET COUNT (BEAKER) (test csvd=574) 183 K/CU MM 150-450 MEAN PLATELET VOLUME (BEAKER) (test lumy=213) 10.1 fL 9.4-12.4 NUCLEATED RED BLOOD CELLS (BEAKER) (test ouat=812) 1 /100 WBC 0-0 IMMATURE GRANULOCYTES-RELATIVE PERCENT (BEAKER) (test nhsr=1493) 5 % 0-1 (MANUAL DIFFERENTIAL)2017-08-05 10:13:00* Test Item Value Reference Range Comments NEUTROPHILS - REL (DIFF) (BEAKER) (test fawt=3895) 49 % LYMPHOCYTES - REL (DIFF) (BEAKER) (test wkgz=8966) 35 % MONOCYTES - REL (DIFF) (BEAKER) (test fkwa=4173) 8 % EOSINOPHILS - REL (DIFF) (BEAKER) (test tzqf=2561) 2 % BASOPHILS - REL (DIFF) (BEAKER) (test ddmh=7773) 0 % METAMYELOCYTES-REL (DIFF) (BEAKER) (test lwwo=469) 4 % 0-0 MYELOCYTES-REL (DIFF) (BEAKER) (test qctr=9101) 2 % 0-0 NEUTROPHILS - ABS (DIFF) (BEAKER) (test zvjl=2183) 3.28 K/ L 1.80-8.00 LYMPHOCYTES - ABS (DIFF) (BEAKER) (test uvnl=0992) 2.35 K/ L 1.48-4.50 MONOCYTES - ABS (DIFF) (BEAKER) (test yolq=0682) 0.54 K/ L 0.00-1.30 EOSINOPHILS - ABS (DIFF) (BEAKER) (test yhtp=4283) 0.13 K/ L 0.00-0.50 BASOPHILS - ABS (DIFF) (BEAKER) (test klnc=4766) 0.00 K/ L 0.00-0.20 METAMYELOCTYES - ABS (DIFF) (BEAKER) (test ihyg=483) 0.27 K/ L 0.00-0.00 MYELOCYTES-ABS (DIFF) (BEAKER) (test dgjh=7906) 0.13 K/ L 0.00-0.00 TOTAL COUNTED (BEAKER) (test qdll=2945) 100 MANUAL NRBC PER 100 CELLS (BEAKER) (test trum=3433) 6 /100 WBC 0-0 WBC MORPHOLOGY (BEAKER) (test xvkm=897) Normal PLT MORPHOLOGY (BEAKER) (test ccen=090) Normal TEAR DROP CELLS (BEAKER) (test zbju=792) 1+ few BASIC METABOLIC [id number] 06:41:00* Test Item Value Reference Range Comments SODIUM (BEAKER) (test pksm=108) 140 meq/L 136-145 POTASSIUM (BEAKER) (test bwtg=228) 3.8 meq/L 3.5-5.1 CHLORIDE (BEAKER) (test dnvm=782) 106 meq/L 98-107 CO2 (BEAKER) (test uojk=681) 20 meq/L 22-29 BLOOD UREA NITROGEN (BEAKER) (test wlqo=805) 10 mg/dL 7-21 CREATININE (BEAKER) (test ntvu=730) 0.83 mg/dL 0.57-1.25 GLUCOSE RANDOM (BEAKER) (test ujep=974) 85 mg/dL 70-105 CALCIUM (BEAKER) (test hqix=993) 9.2 mg/dL 8.4-10.2 EGFR (BEAKER) (test gyre=2682) 111 mL/min/1.73 sq m ESTIMATED GFR IS NOT ACCURATE CREATININE CLEARANCE IN PREDICTING GLOMERULAR FILTRATION RATE. ESTIMATED GFR IS NOT APPLICABLE FOR DIALYSIS PATIENTS. POCT-GLUCOSE [id number] 06:12:00* Test Item Value Reference Range Comments POC-GLUCOSE METER (BEAKER) (test ieqx=0996) 89 mg/dL 70-110 TESTED AT [address] [address] POCT-GLUCOSE [id number] 20:43:00* Test Item Value Reference Range Comments POC-GLUCOSE METER (BEAKER) (test lsot=1152) 105 mg/dL 70-110 TESTED AT [address] [address] POCT-GLUCOSE [id number] 16:42:00* Test Item Value Reference Range Comments POC-GLUCOSE METER (BEAKER) (test nnkt=2414) 131 mg/dL 70-110 TESTED AT [place] [id number] [facility] [address] POCT-GLUCOSE [id number] 11:55:00* Test Item Value Reference Range Comments POC-GLUCOSE METER (BEAKER) (test kbjd=7537) 120 mg/dL 70-110 TESTED AT [address] [address] POCT-GLUCOSE [id number] 06:14:00* Test Item Value Reference Range Comments POC-GLUCOSE METER (BEAKER) (test bbpx=8385) 85 mg/dL 70-110 TESTED AT [address] [address] POCT-GLUCOSE [id number] 20:15:00* Test Item Value Reference Range Comments POC-GLUCOSE METER (BEAKER) (test nmux=4065) 136 mg/dL 70-110 TESTED AT [address] [address] POCT-GLUCOSE [id number] 16:41:00* Test Item Value Reference Range Comments POC-GLUCOSE METER (BEAKER) (test xrfy=7717) 165 mg/dL 70-110 TESTED AT [address] [address] POCT-GLUCOSE [id number] 11:35:00* Test Item Value Reference Range Comments POC-GLUCOSE METER (BEAKER) (test nocp=1292) 139 mg/dL 70-110 TESTED AT [address] [address] POCT-GLUCOSE [id number] 06:28:00* Test Item Value Reference Range Comments POC-GLUCOSE METER (BEAKER) (test ogwg=5831) 104 mg/dL 70-110 TESTED AT [address] [address] POCT-GLUCOSE [id number] 20:28:00* Test Item Value Reference Range Comments POC-GLUCOSE METER (BEAKER) (test feyv=1903) 123 mg/dL 70-110 TESTED AT [address] [address] POCT-GLUCOSE [id number] 16:32:00* Test Item Value Reference Range Comments POC-GLUCOSE METER (BEAKER) (test lqjj=2153) 174 mg/dL 70-110 TESTED AT [address] [address] POCT-GLUCOSE [id number] 12:06:00* Test Item Value Reference Range Comments POC-GLUCOSE METER (BEAKER) (test ihzh=4476) 149 mg/dL 70-110 TESTED AT [address] [address] POCT-GLUCOSE [id number] 05:46:00* Test Item Value Reference Range Comments POC-GLUCOSE METER (BEAKER) (test jieb=1588) 107 mg/dL 70-110 TESTED AT [address] [address] POCT-GLUCOSE [id number] 20:41:00* Test Item Value Reference Range Comments POC-GLUCOSE METER (BEAKER) (test ovcu=2802) 139 mg/dL 70-110 TESTED AT [facility] [address] [facility] [address] POCT-GLUCOSE [id number] 16:49:00* Test Item Value Reference Range Comments POC-GLUCOSE METER (BEAKER) (test asdy=1171) 170 mg/dL 70-110 TESTED AT [facility] [address] [facility] [address] CBC W/PLT COUNT & AUTO [id number] 13:05:00* Test Item Value Reference Range Comments WHITE BLOOD CELL COUNT (BEAKER) (test wmxd=704) 6.6 K/ L 3.5-10.5 RED BLOOD CELL COUNT (BEAKER) (test tplv=488) 3.27 M/ L 4.63-6.08 HEMOGLOBIN (BEAKER) (test sqjw=024) 9.5 GM/DL 13.7-17.5 HEMATOCRIT (BEAKER) (test nbwk=394) 31.1 % 40.1-51.0 MEAN CORPUSCULAR VOLUME (BEAKER) (test begt=993) 95.1 fL 79.0-92.2 MEAN CORPUSCULAR HEMOGLOBIN (BEAKER) (test jakn=269) 29.1 pg 25.7-32.2 MEAN CORPUSCULAR HEMOGLOBIN CONC (BEAKER) (test cjqm=884) 30.5 GM/DL 32.3- 36.5 RED CELL DISTRIBUTION WIDTH (BEAKER) (test guml=552) 16.0 % 11.6-14.4 PLATELET COUNT (BEAKER) (test xlwk=395) 280 K/CU MM 150-450 MEAN PLATELET VOLUME (BEAKER) (test kxvv=151) 9.1 fL 9.4-12.4 NUCLEATED RED BLOOD CELLS (BEAKER) (test huet=896) 2 /100 WBC 0-0 NEUTROPHILS RELATIVE PERCENT (BEAKER) (test ihye=935) 64 % LYMPHOCYTES RELATIVE PERCENT (BEAKER) (test tgrh=055) 18 % MONOCYTES RELATIVE PERCENT (BEAKER) (test nvfi=730) 14 % EOSINOPHILS RELATIVE PERCENT (BEAKER) (test efnw=006) 1 % BASOPHILS RELATIVE PERCENT (BEAKER) (test oxvk=243) 0 % NEUTROPHILS ABSOLUTE COUNT (BEAKER) (test usdq=397) 4.22 K/ L 1.78-5.38 LYMPHOCYTES ABSOLUTE COUNT (BEAKER) (test dloo=043) 1.16 K/ L 1.32-3.57 MONOCYTES ABSOLUTE COUNT (BEAKER) (test ceuw=750) 0.93 K/ L 0.30-0.82 EOSINOPHILS ABSOLUTE COUNT (BEAKER) (test yfya=144) 0.03 K/ L 0.04-0.54 BASOPHILS ABSOLUTE COUNT (BEAKER) (test fvcu=807) 0.01 K/ L 0.01-0.08 IMMATURE GRANULOCYTES-RELATIVE PERCENT (BEAKER) (test jyhu=5276) 4 % 0-1 (MANUAL DIFFERENTIAL)2017-08-01 13:05:00* Test Item Value Reference Range Comments TOTAL COUNTED (BEAKER) (test wqoh=6016) POCT-GLUCOSE [id number] 12:02:00* Test Item Value Reference Range Comments POC-GLUCOSE METER (BEAKER) (test zbpb=5963) 127 mg/dL 70-110 TESTED AT [address] [address] POCT-GLUCOSE [id number] 05:39:00* Test Item Value Reference Range Comments POC-GLUCOSE METER (BEAKER) (test rlnz=4361) 108 mg/dL 70-110 TESTED AT [address] [address] POCT-GLUCOSE [id number] 21:27:00* Test Item Value Reference Range Comments POC-GLUCOSE METER (BEAKER) (test jobx=7282) 128 mg/dL 70-110 TESTED AT [address] [address] POCT-GLUCOSE [id number] 16:20:00* Test Item Value Reference Range Comments POC-GLUCOSE METER (BEAKER) (test gcep=9009) 139 mg/dL 70-110 TESTED AT [address] [address] POCT-GLUCOSE [id number] 12:04:00* Test Item Value Reference Range Comments POC-GLUCOSE METER (BEAKER) (test ibpk=0106) 117 mg/dL 70-110 TESTED AT [address] [address] POCT-GLUCOSE [id number] 05:59:00* Test Item Value Reference Range Comments POC-GLUCOSE METER (BEAKER) (test glfw=6840) 109 mg/dL 70-110 TESTED AT [address] [address] POCT-GLUCOSE [id number] 20:43:00* Test Item Value Reference Range Comments POC-GLUCOSE METER (BEAKER) (test aptf=5659) 144 mg/dL 70-110 TESTED AT [address] [address] POCT-GLUCOSE [id number] 16:47:00* Test Item Value Reference Range Comments POC-GLUCOSE METER (BEAKER) (test pcht=5598) 141 mg/dL 70-110 TESTED AT [address] [address] POCT-GLUCOSE [id number] 11:12:00* Test Item Value Reference Range Comments POC-GLUCOSE METER (BEAKER) (test ogdd=9517) 108 mg/dL 70-110 TESTED AT [address] [address] CBC W/PLT COUNT & AUTO [id number] 07:04:00* Test Item Value Reference Range Comments WHITE BLOOD CELL COUNT (BEAKER) (test opmk=668) 5.2 K/ L 3.5-10.5 RED BLOOD CELL COUNT (BEAKER) (test mmbw=540) 3.14 M/ L 4.63-6.08 HEMOGLOBIN (BEAKER) (test zqvv=880) 9.1 GM/DL 13.7-17.5 HEMATOCRIT (BEAKER) (test lnrc=255) 29.7 % 40.1-51.0 MEAN CORPUSCULAR VOLUME (BEAKER) (test lqus=137) 94.6 fL 79.0-92.2 MEAN CORPUSCULAR HEMOGLOBIN (BEAKER) (test otiy=104) 29.0 pg 25.7-32.2 MEAN CORPUSCULAR HEMOGLOBIN CONC (BEAKER) (test xetm=669) 30.6 GM/DL 32.3- 36.5 RED CELL DISTRIBUTION WIDTH (BEAKER) (test hjqr=533) 16.0 % 11.6-14.4 PLATELET COUNT (BEAKER) (test uyty=167) 199 K/CU MM 150-450 MEAN PLATELET VOLUME (BEAKER) (test msib=851) 9.2 fL 9.4-12.4 NUCLEATED RED BLOOD CELLS (BEAKER) (test hzgm=783) 2 /100 WBC 0-0 NEUTROPHILS RELATIVE PERCENT (BEAKER) (test odry=342) 54 % LYMPHOCYTES RELATIVE PERCENT (BEAKER) (test ybgj=904) 28 % MONOCYTES RELATIVE PERCENT (BEAKER) (test myou=451) 13 % EOSINOPHILS RELATIVE PERCENT (BEAKER) (test qytm=669) 0 % BASOPHILS RELATIVE PERCENT (BEAKER) (test kutb=388) 0 % NEUTROPHILS ABSOLUTE COUNT (BEAKER) (test fsmh=144) 2.81 K/ L 1.78-5.38 LYMPHOCYTES ABSOLUTE COUNT (BEAKER) (test ilrm=238) 1.44 K/ L 1.32-3.57 MONOCYTES ABSOLUTE COUNT (BEAKER) (test zosm=083) 0.69 K/ L 0.30-0.82 EOSINOPHILS ABSOLUTE COUNT (BEAKER) (test kbmn=726) 0.02 K/ L 0.04-0.54 BASOPHILS ABSOLUTE COUNT (BEAKER) (test lutb=863) 0.02 K/ L 0.01-0.08 IMMATURE GRANULOCYTES-RELATIVE PERCENT (BEAKER) (test tebt=2148) 5 % 0-1 BASIC METABOLIC [id number] 07:02:00* Test Item Value Reference Range Comments SODIUM (BEAKER) (test swxi=511) 139 meq/L 136-145 POTASSIUM (BEAKER) (test ezlx=017) 3.7 meq/L 3.5-5.1 CHLORIDE (BEAKER) (test drba=583) 105 meq/L 98-107 CO2 (BEAKER) (test yefi=104) 22 meq/L 22-29 BLOOD UREA NITROGEN (BEAKER) (test jqxd=049) 13 mg/dL 7-21 CREATININE (BEAKER) (test golu=146) 0.91 mg/dL 0.57-1.25 GLUCOSE RANDOM (BEAKER) (test mpjh=299) 87 mg/dL 70-105 CALCIUM (BEAKER) (test wuto=093) 9.0 mg/dL 8.4-10.2 EGFR (BEAKER) (test xhie=9613) 100 mL/min/1.73 sq m ESTIMATED GFR IS NOT ACCURATE CREATININE CLEARANCE IN PREDICTING GLOMERULAR FILTRATION RATE. ESTIMATED GFR IS NOT APPLICABLE FOR DIALYSIS PATIENTS. POCT-GLUCOSE [id number] 05:47:00* Test Item Value Reference Range Comments POC-GLUCOSE METER (BEAKER) (test wodl=3071) 108 mg/dL 70-110 TESTED AT [place] [id number] [facility] [address] POCT-GLUCOSE [id number] 21:18:00* Test Item Value Reference Range Comments POC-GLUCOSE METER (BEAKER) (test wvjn=5970) 126 mg/dL 70-110 TESTED AT [address] [address] POCT-GLUCOSE [id number] 16:40:00* Test Item Value Reference Range Comments POC-GLUCOSE METER (BEAKER) (test ohcj=8889) 159 mg/dL 70-110 TESTED AT [address] [address] POCT-GLUCOSE [id number] 11:43:00* Test Item Value Reference Range Comments POC-GLUCOSE METER (BEAKER) (test qvhg=9324) 120 mg/dL 70-110 TESTED AT [address] [address] T4, [id number] 07:04:00* Test Item Value Reference Range Comments FREE T4 (BEAKER) (test pgrg=798) 0.80 ng/dL 0.70-1.48 POCT-GLUCOSE [id number] 05:58:00* Test Item Value Reference Range Comments POC-GLUCOSE METER (BEAKER) (test iehy=6715) 79 mg/dL 70-110 TESTED AT [address] [address] RAD, CHEST, 2 [id number] 21:23:00Reason for exam:->coughing and increased secretionsFINAL REPORT EXAMINATION: 2 VIEW CHEST INDICATION: COUGH IMPRESSION: Compared with chest radiograph 07/18/2017, 2016 Curvilinear and reticular opacities are again noted [...] left hemidiaphragm is again noted. Signed: Meghan Quirogaort Verified Date/Time: 07/28/2017 21:23:01 Reading Location: [address] Reading Room -GLUCOSE [id number] 20:35:00* Test Item Value Reference Range Comments POC-GLUCOSE METER (BEAKER) (test ccus=7063) 149 mg/dL 70-110 TESTED AT [address] [address] POCT-GLUCOSE [id number] 16:27:00* Test Item Value Reference Range Comments POC-GLUCOSE METER (BEAKER) (test wbst=7460) 221 mg/dL 70-110 TESTED AT [address] [address] POCT-GLUCOSE [id number] 11:18:00* Test Item Value Reference Range Comments POC-GLUCOSE METER (BEAKER) (test jzjj=2133) 102 mg/dL 70-110 TESTED AT [address] [address] POCT-GLUCOSE [id number] 06:25:00* Test Item Value Reference Range Comments POC-GLUCOSE METER (BEAKER) (test nzra=9791) 97 mg/dL 70-110 TESTED AT [address] [address] POCT-GLUCOSE [id number] 20:31:00* Test Item Value Reference Range Comments POC-GLUCOSE METER (BEAKER) (test yscb=5467) 154 mg/dL 70-110 TESTED AT [address] [address] POCT-GLUCOSE [id number] 16:40:00* Test Item Value Reference Range Comments POC-GLUCOSE METER (BEAKER) (test lqun=5510) 158 mg/dL 70-110 TESTED AT [address] [address] POCT-GLUCOSE [id number] 12:03:00* Test Item Value Reference Range Comments POC-GLUCOSE METER (BEAKER) (test riqg=1839) 169 mg/dL 70-110 TESTED AT [address] [address] COMPREHENSIVE METABOLIC [id number] 08:08:00* Test Item Value Reference Range Comments TOTAL PROTEIN (BEAKER) (test gtik=963) 6.1 gm/dL 6.0-8.3 ALBUMIN (BEAKER) (test pzza=9478) 3.5 g/dL 3.5-5.0 ALKALINE PHOSPHATASE (BEAKER) (test hsvy=855) 63 U/L 40-150 BILIRUBIN TOTAL (BEAKER) (test vhus=030) 0.4 mg/dL 0.2-1.2 SODIUM (BEAKER) (test wsyz=492) 139 meq/L 136-145 POTASSIUM (BEAKER) (test adzm=655) 3.8 meq/L 3.5-5.1 CHLORIDE (BEAKER) (test dqzh=891) 103 meq/L 98-107 CO2 (BEAKER) (test mncf=136) 23 meq/L 22-29 BLOOD UREA NITROGEN (BEAKER) (test qgla=541) 14 mg/dL 7-21 CREATININE (BEAKER) (test latq=458) 0.91 mg/dL 0.57-1.25 GLUCOSE RANDOM (BEAKER) (test xoeu=410) 95 mg/dL 70-105 CALCIUM (BEAKER) (test byte=932) 9.6 mg/dL 8.4-10.2 AST (SGOT) (BEAKER) (test zfvm=062) 27 U/L 5-34 ALT (SGPT) (BEAKER) (test rwbb=588) 71 U/L 6-55 EGFR (BEAKER) (test zqju=0444) 100 mL/min/1.73 sq m ESTIMATED GFR IS NOT ACCURATE CREATININE CLEARANCE IN PREDICTING GLOMERULAR FILTRATION RATE. ESTIMATED GFR IS NOT APPLICABLE FOR DIALYSIS PATIENTS. TSH/FREE T4 IF [id number] 07:59:00* Test Item Value Reference Range Comments THYROID STIMULATING HORMONE (BEAKER) (test fcjq=270) 0.70 uIU/mL 0.35-4.94 CBC W/PLT COUNT & AUTO [id number] 07:40:00* Test Item Value Reference Range Comments WHITE BLOOD CELL COUNT (BEAKER) (test fmrv=271) 5.5 K/ L 3.5-10.5 RED BLOOD CELL COUNT (BEAKER) (test vijq=140) 3.27 M/ L 4.63-6.08 HEMOGLOBIN (BEAKER) (test dqxm=346) 9.4 GM/DL 13.7-17.5 HEMATOCRIT (BEAKER) (test ysxz=531) 30.7 % 40.1-51.0 MEAN CORPUSCULAR VOLUME (BEAKER) (test ftqt=162) 93.9 fL 79.0-92.2 MEAN CORPUSCULAR HEMOGLOBIN (BEAKER) (test ajxy=375) 28.7 pg 25.7-32.2 MEAN CORPUSCULAR HEMOGLOBIN CONC (BEAKER) (test sngq=778) 30.6 GM/DL 32.3- 36.5 RED CELL DISTRIBUTION WIDTH (BEAKER) (test otyd=727) 15.8 % 11.6-14.4 PLATELET COUNT (BEAKER) (test qyvz=453) 147 K/CU MM 150-450 MEAN PLATELET VOLUME (BEAKER) (test ymqy=032) 9.9 fL 9.4-12.4 NUCLEATED RED BLOOD CELLS (BEAKER) (test xdgj=930) 2 /100 WBC 0-0 NEUTROPHILS RELATIVE PERCENT (BEAKER) (test dyrd=082) 60 % LYMPHOCYTES RELATIVE PERCENT (BEAKER) (test dbfs=601) 23 % MONOCYTES RELATIVE PERCENT (BEAKER) (test jgah=165) 13 % EOSINOPHILS RELATIVE PERCENT (BEAKER) (test abeq=411) 0 % BASOPHILS RELATIVE PERCENT (BEAKER) (test dkkl=928) 0 % NEUTROPHILS ABSOLUTE COUNT (BEAKER) (test bayy=466) 3.33 K/ L 1.78-5.38 LYMPHOCYTES ABSOLUTE COUNT (BEAKER) (test bxcj=909) 1.24 K/ L 1.32-3.57 MONOCYTES ABSOLUTE COUNT (BEAKER) (test hsba=118) 0.69 K/ L 0.30-0.82 EOSINOPHILS ABSOLUTE COUNT (BEAKER) (test knag=410) 0.01 K/ L 0.04-0.54 BASOPHILS ABSOLUTE COUNT (BEAKER) (test yalm=869) 0.02 K/ L 0.01-0.08 IMMATURE GRANULOCYTES-RELATIVE PERCENT (BEAKER) (test olyt=4898) 4 % 0-1 PROTHROMBIN [id number] 07:07:00* Test Item Value Reference Range Comments PROTIME (BEAKER) (test jxnt=835) 13.4 seconds 11.7-14.7 INR (BEAKER) (test acrk=651) 1.0 <=5.9 RECOMMENDED COUMADIN/WARFARIN INR THERAPY RANGESSTANDARD DOSE: 2.0 - 3.0 Includes: PROPHYLAXIS for venous thrombosis, systemic embolization; TREATMENT for venous thrombosis and/or pulmonary embolus.HIGH RISK: Target INR is 2.5-3.5 for patients with mechanical heart valves.POCT-GLUCOSE [id number] 06:03:00 * Test Item Value Reference Range Comments POC-GLUCOSE METER (BEAKER) (test nncd=8381) 107 mg/dL 70-110 TESTED AT [address] [address] POCT-GLUCOSE [id number] 20:54:00* Test Item Value Reference Range Comments POC-GLUCOSE METER (BEAKER) (test akmc=5103) 165 mg/dL 70-110 TESTED AT [address] [address] POCT-GLUCOSE [id number] 17:28:00* Test Item Value Reference Range Comments POC-GLUCOSE METER (BEAKER) (test dpiy=2454) 162 mg/dL 70-110 TESTED AT [address] [address] POCT-GLUCOSE [id number] 12:21:00* Test Item Value Reference Range Comments POC-GLUCOSE METER (BEAKER) (test ltsj=6445) 153 mg/dL 70-110 TESTED AT [address] [address] POCT-GLUCOSE [id number] 06:57:00* Test Item Value Reference Range Comments POC-GLUCOSE METER (BEAKER) (test wqzb=1281) 102 mg/dL 70-110 TESTED AT [address] [address] URINALYSIS W/ [id number] 06:53:00* Test Item Value Reference Range Comments COLOR (BEAKER) (test dfix=342) Yellow CLARITY (BEAKER) (test dmul=969) Clear SPECIFIC GRAVITY UA (BEAKER) (test gkab=631) 1.018 1.001-1.035 PH UA (BEAKER) (test oxfc=813) 5.5 5.0-8.0 PROTEIN UA (BEAKER) (test pszh=143) 20 mg/dL Negative GLUCOSE UA (BEAKER) (test zqvq=586) Negative Negative KETONES UA (BEAKER) (test jnnq=023) Negative Negative BILIRUBIN UA (BEAKER) (test jswz=328) Negative Negative BLOOD UA (BEAKER) (test xfay=258) Negative Negative NITRITE UA (BEAKER) (test xqma=034) Negative Negative LEUKOCYTE ESTERASE UA (BEAKER) (test ykqo=116) Negative Negative UROBILINOGEN UA (BEAKER) (test nfic=055) 0.2 mg/dL 0.2-1.0 RBC UA (BEAKER) (test odrk=928) 0 /HPF WBC UA (BEAKER) (test roef=139) 1 /HPF MUCUS (BEAKER) (test ovfl=9504) Few SQUAMOUS EPITHELIAL (BEAKER) (test ekoi=529) < /HPF HYALINE CASTS (BEAKER) (test rlis=368) 5 /LPF SOURCE(BEAKER) (test uvhv=0096) Urine, Voided POCT-GLUCOSE [id number] 21:02:00* Test Item Value Reference Range Comments POC-GLUCOSE METER (BEAKER) (test nyjg=3722) 160 mg/dL 70-110 TESTED AT [address] [address] POCT-GLUCOSE [id number] 16:32:00* Test Item Value Reference Range Comments POC-GLUCOSE METER (BEAKER) (test qobs=6886) 157 mg/dL 70-110 TESTED AT [address] [address] POCT-GLUCOSE [id number] 12:25:00* Test Item Value Reference Range Comments POC-GLUCOSE METER (BEAKER) (test nlqk=3276) 129 mg/dL 70-110 TESTED AT [address] [address] PROTEIN ELECTROPHORESIS, [id number] 09:15:00* Test Item Value Reference Range Comments ALBUMIN FRACTION (BEAKER) (test riwb=729) 2.9 gm/dL 3.5-5.5 RR: 3.8-4.8 g/dL ALPHA 1 FRACTION (BEAKER) (test ugik=294) 0.3 gm/dL 0.2-0.4 RR: 0.2-0.3 g/dL ALPHA 2 FRACTION (BEAKER) (test uaie=285) 1.1 gm/dL 0.5-0.9 BETA FRACTION (BEAKER) (test mqfk=022) 0.6 gm/dL 0.6-1.1 GAMMA GLOBULIN FRACTION (BEAKER) (test oist=937) 0.4 gm/dL 0.7-1.7 RR: 0.8- 1.7 g/dL INTERPRETATION-119 (BEAKER) (test dpys=3970) Evaluation revelas one faint restricted band migrating in the gamma region. Consider immunofixation analysis if indicated. IGHH-KLFCNMAJHCO-659 (BEAKER) (test ayel=1075) Test performed and interpreted by [facility]. PROTEIN TOTAL SERUM, SPEP (BEAKER) (test qpyp=7841) 5.3 gm/dL 6.0-8.5 RR: 6.1-8.1 g/dL POCT-GLUCOSE [id number] 07:47:00* Test Item Value Reference Range Comments POC-GLUCOSE METER (BEAKER) (test kmda=0699) 112 mg/dL 70-110 TESTED AT [facility] [address] [facility] [address] CBC W/PLT COUNT & AUTO [id number] 07:46:00* Test Item Value Reference Range Comments WHITE BLOOD CELL COUNT (BEAKER) (test fdlm=757) 6.0 K/ L 3.5-10.5 RED BLOOD CELL COUNT (BEAKER) (test nhpd=202) 3.29 M/ L 4.63-6.08 HEMOGLOBIN (BEAKER) (test pmje=260) 9.5 GM/DL 13.7-17.5 HEMATOCRIT (BEAKER) (test kiig=398) 30.9 % 40.1-51.0 MEAN CORPUSCULAR VOLUME (BEAKER) (test plfp=389) 93.9 fL 79.0-92.2 MEAN CORPUSCULAR HEMOGLOBIN (BEAKER) (test tran=713) 28.9 pg 25.7-32.2 MEAN CORPUSCULAR HEMOGLOBIN CONC (BEAKER) (test frhp=089) 30.7 GM/DL 32.3- 36.5 RED CELL DISTRIBUTION WIDTH (BEAKER) (test niqo=726) 15.8 % 11.6-14.4 PLATELET COUNT (BEAKER) (test outg=003) 120 K/CU MM 150-450 MEAN PLATELET VOLUME (BEAKER) (test tbon=765) 9.6 fL 9.4-12.4 NUCLEATED RED BLOOD CELLS (BEAKER) (test tvem=078) 1 /100 WBC 0-0 IMMATURE GRANULOCYTES-RELATIVE PERCENT (BEAKER) (test uail=6479) 5 % 0-1 (MANUAL DIFFERENTIAL)2017-07-25 07:46:00* Test Item Value Reference Range Comments NEUTROPHILS - REL (DIFF) (BEAKER) (test lxhm=5675) 60 % LYMPHOCYTES - REL (DIFF) (BEAKER) (test gzrl=1390) 28 % MONOCYTES - REL (DIFF) (BEAKER) (test epju=4444) 8 % EOSINOPHILS - REL (DIFF) (BEAKER) (test upll=3240) 0 % BASOPHILS - REL (DIFF) (BEAKER) (test tyip=5747) 0 % METAMYELOCYTES-REL (DIFF) (BEAKER) (test dvhd=743) 2 % 0-0 MYELOCYTES-REL (DIFF) (BEAKER) (test slxk=8505) 1 % 0-0 BANDS - REL (DIFF) (BEAKER) (test qwgl=0131) 1 % 0-10 NEUTROPHILS - ABS (DIFF) (BEAKER) (test cbik=3107) 3.60 K/ L 1.80-8.00 LYMPHOCYTES - ABS (DIFF) (BEAKER) (test uvuc=2917) 1.68 K/ L 1.48-4.50 MONOCYTES - ABS (DIFF) (BEAKER) (test bzwk=2051) 0.48 K/ L 0.00-1.30 EOSINOPHILS - ABS (DIFF) (BEAKER) (test lfwz=1486) 0.00 K/ L 0.00-0.50 BASOPHILS - ABS (DIFF) (BEAKER) (test haib=8780) 0.00 K/ L 0.00-0.20 METAMYELOCTYES - ABS (DIFF) (BEAKER) (test yeiy=268) 0.12 K/ L 0.00-0.00 BANDS-ABS (DIFF) (BEAKER) (test wtja=9355) 0.1 K/ L 0.0-0.8 MYELOCYTES-ABS (DIFF) (BEAKER) (test pemq=2738) 0.06 K/ L 0.00-0.00 TOTAL COUNTED (BEAKER) (test mhqv=2155) 100 BANDS + SEGMENTED NEUTROPHILS (BEAKER) (test ggbs=3750) 3.66 MANUAL NRBC PER 100 CELLS (BEAKER) (test dado=5876) 1 /100 WBC 0-0 WBC MORPHOLOGY (BEAKER) (test cpue=519) Normal PLT MORPHOLOGY (BEAKER) (test ypox=840) Normal TEAR DROP CELLS (BEAKER) (test udqm=844) 1+ few [id number] 05:30:00* Test Item Value Reference Range Comments MAGNESIUM (BEAKER) (test zudk=171) 1.0 mg/dL 1.6-2.6 [id number] 05:19:00* Test Item Value Reference Range Comments PHOSPHORUS (BEAKER) (test feqg=105) 3.8 mg/dL 2.3-4.7 BASIC METABOLIC [id number] 05:19:00* Test Item Value Reference Range Comments SODIUM (BEAKER) (test odqi=737) 138 meq/L 136-145 POTASSIUM (BEAKER) (test sbwl=656) 3.9 meq/L 3.5-5.1 CHLORIDE (BEAKER) (test ktul=555) 101 meq/L 98-107 CO2 (BEAKER) (test vqsz=996) 26 meq/L 22-29 BLOOD UREA NITROGEN (BEAKER) (test ahgd=211) 12 mg/dL 7-21 CREATININE (BEAKER) (test dhzy=974) 0.89 mg/dL 0.57-1.25 GLUCOSE RANDOM (BEAKER) (test aieb=176) 105 mg/dL 70-105 CALCIUM (BEAKER) (test atrm=585) 9.9 mg/dL 8.4-10.2 EGFR (BEAKER) (test tzya=4733) 102 mL/min/1.73 sq m ESTIMATED GFR IS NOT ACCURATE CREATININE CLEARANCE IN PREDICTING GLOMERULAR FILTRATION RATE. ESTIMATED GFR IS NOT APPLICABLE FOR DIALYSIS PATIENTS. POCT-GLUCOSE [id number] 23:37:00* Test Item Value Reference Range Comments POC-GLUCOSE METER (BEAKER) (test buvq=9541) 164 mg/dL 70-110 TESTED AT [place] [id number] [facility] [address] POCT-GLUCOSE [id number] 19:06:00* Test Item Value Reference Range Comments POC-GLUCOSE METER (BEAKER) (test veol=8985) 217 mg/dL 70-110 TESTED AT [place] [id number] [facility] [address] POCT-GLUCOSE [id number] 12:22:00* Test Item Value Reference Range Comments POC-GLUCOSE METER (BEAKER) (test zbyx=0485) 132 mg/dL 70-110 TESTED AT [address] [address] POCT-GLUCOSE [id number] 08:50:00* Test Item Value Reference Range Comments POC-GLUCOSE METER (BEAKER) (test iqaj=1828) 123 mg/dL 70-110 TESTED AT [place] [address]30 POCT-GLUCOSE [id number] 22:59:00* Test Item Value Reference Range Comments POC-GLUCOSE METER (BEAKER) (test lgqf=5446) 151 mg/dL 70-110 TESTED AT [place] [address]30 POCT-GLUCOSE [id number] 18:09:00* Test Item Value Reference Range Comments POC-GLUCOSE METER (BEAKER) (test yffa=3117) 303 mg/dL 70-110 TESTED AT [place] [address]30 POCT-GLUCOSE [id number] 17:45:00* Test Item Value Reference Range Comments POC-GLUCOSE METER (BEAKER) (test jwul=6528) 283 mg/dL 70-110 TESTED AT [place] [address]30 POCT-GLUCOSE [id number] 11:59:00* Test Item Value Reference Range Comments POC-GLUCOSE METER (BEAKER) (test xjns=3594) 166 mg/dL 70-110 TESTED AT [place] [address]30 POCT-GLUCOSE [id number] 08:01:00* Test Item Value Reference Range Comments POC-GLUCOSE METER (BEAKER) (test pvom=1352) 131 mg/dL 70-110 TESTED AT [place] [address] POCT-GLUCOSE [id number] 06:44:00* Test Item Value Reference Range Comments POC-GLUCOSE METER (BEAKER) (test olue=2283) 144 mg/dL 70-110 TESTED AT [place] [address] BLOOD [id number] 05:02:00* Test Item Value Reference Range Comments CULTURE (BEAKER) (test tzuf=1765) No growth in 5 days BLOOD [id number] 23:00:00* Test Item Value Reference Range Comments CULTURE (BEAKER) (test rovs=9639) No growth in 5 days POCT-GLUCOSE [id number] 17:57:00* Test Item Value Reference Range Comments POC-GLUCOSE METER (BEAKER) (test miis=9424) 242 mg/dL 70-110 TESTED AT [address] [address] POCT-GLUCOSE [id number] 13:01:00* Test Item Value Reference Range Comments POC-GLUCOSE METER (BEAKER) (test qwvz=9252) 190 mg/dL 70-110 TESTED AT [address] [address] POCT-GLUCOSE [id number] 08:54:00* Test Item Value Reference Range Comments POC-GLUCOSE METER (BEAKER) (test lyva=5700) 145 mg/dL 70-110 TESTED AT [address] [address] POCT-GLUCOSE [id number] 20:57:00* Test Item Value Reference Range Comments POC-GLUCOSE METER (BEAKER) (test udvu=5007) 181 mg/dL 70-110 TESTED AT [address] [address] POCT-GLUCOSE [id number] 17:44:00* Test Item Value Reference Range Comments POC-GLUCOSE METER (BEAKER) (test puno=3169) 246 mg/dL 70-110 TESTED AT [address] [address] CBC W/PLT COUNT & AUTO [id number] 14:35:00* Test Item Value Reference Range Comments WHITE BLOOD CELL COUNT (BEAKER) (test fhai=841) 5.9 K/ L 3.5-10.5 RED BLOOD CELL COUNT (BEAKER) (test ahuf=008) 3.46 M/ L 4.63-6.08 HEMOGLOBIN (BEAKER) (test axmy=650) 10.0 GM/DL 13.7-17.5 HEMATOCRIT (BEAKER) (test stcu=835) 32.2 % 40.1-51.0 MEAN CORPUSCULAR VOLUME (BEAKER) (test tbir=188) 93.1 fL 79.0-92.2 MEAN CORPUSCULAR HEMOGLOBIN (BEAKER) (test wuwx=157) 28.9 pg 25.7-32.2 MEAN CORPUSCULAR HEMOGLOBIN CONC (BEAKER) (test rlcm=361) 31.1 GM/DL 32.3- 36.5 RED CELL DISTRIBUTION WIDTH (BEAKER) (test fhfs=867) 15.8 % 11.6-14.4 PLATELET COUNT (BEAKER) (test mahy=537) 111 K/CU MM 150-450 MEAN PLATELET VOLUME (BEAKER) (test yduc=629) 11.1 fL 9.4-12.4 NUCLEATED RED BLOOD CELLS (BEAKER) (test hvtz=371) 1 /100 WBC 0-0 NEUTROPHILS RELATIVE PERCENT (BEAKER) (test xwjg=018) 69 % LYMPHOCYTES RELATIVE PERCENT (BEAKER) (test nfyt=919) 15 % MONOCYTES RELATIVE PERCENT (BEAKER) (test faje=920) 11 % EOSINOPHILS RELATIVE PERCENT (BEAKER) (test syhh=181) 0 % BASOPHILS RELATIVE PERCENT (BEAKER) (test twgw=614) 0 % NEUTROPHILS ABSOLUTE COUNT (BEAKER) (test acrk=464) 4.10 K/ L 1.78-5.38 LYMPHOCYTES ABSOLUTE COUNT (BEAKER) (test qjqw=514) 0.88 K/ L 1.32-3.57 MONOCYTES ABSOLUTE COUNT (BEAKER) (test eovc=555) 0.67 K/ L 0.30-0.82 EOSINOPHILS ABSOLUTE COUNT (BEAKER) (test fufa=677) 0.02 K/ L 0.04-0.54 BASOPHILS ABSOLUTE COUNT (BEAKER) (test bmmj=570) 0.01 K/ L 0.01-0.08 IMMATURE GRANULOCYTES-RELATIVE PERCENT (BEAKER) (test ejxj=4383) 4 % 0-1 (MANUAL DIFFERENTIAL)2017-07-21 14:35:00* Test Item Value Reference Range Comments TOTAL COUNTED (BEAKER) (test xgjc=1401) WBC MORPHOLOGY (BEAKER) (test gief=022) Normal PLT MORPHOLOGY (BEAKER) (test dydd=651) Normal RBC MORPHOLOGY (BEAKER) (test nzad=899) Normal POCT-GLUCOSE [id number] 13:37:00* Test Item Value Reference Range Comments POC-GLUCOSE METER (BEAKER) (test zvda=2256) 142 mg/dL 70-110 TESTED AT [facility] [address] [place] [address] BASIC METABOLIC [id number] 12:33:00* Test Item Value Reference Range Comments SODIUM (BEAKER) (test ukjm=610) 137 meq/L 136-145 POTASSIUM (BEAKER) (test crwe=952) 4.0 meq/L 3.5-5.1 Specimen slightly hemolyzed CHLORIDE (BEAKER) (test apil=636) 99 meq/L 98-107 CO2 (BEAKER) (test twgy=762) 27 meq/L 22-29 BLOOD UREA NITROGEN (BEAKER) (test zldw=043) 13 mg/dL 7-21 CREATININE (BEAKER) (test rtjv=229) 0.81 mg/dL 0.57-1.25 Specimen slightly hemolyzed GLUCOSE RANDOM (BEAKER) (test fwzc=038) 147 mg/dL 70-105 CALCIUM (BEAKER) (test yzvr=451) 10.4 mg/dL 8.4-10.2 EGFR (BEAKER) (test tmhp=1845) 114 mL/min/1.73 sq m ESTIMATED GFR IS NOT ACCURATE CREATININE CLEARANCE IN PREDICTING GLOMERULAR FILTRATION RATE. ESTIMATED GFR IS NOT APPLICABLE FOR DIALYSIS PATIENTS. POCT-GLUCOSE [id number] 08:10:00* Test Item Value Reference Range Comments POC-GLUCOSE METER (BEAKER) (test uvns=3532) 127 mg/dL 70-110 TESTED AT [place] [address]30 POCT-GLUCOSE [id number] 21:20:00* Test Item Value Reference Range Comments POC-GLUCOSE METER (BEAKER) (test ndyy=8352) 176 mg/dL 70-110 TESTED AT [place] [address]30 POCT-GLUCOSE [id number] 17:28:00* Test Item Value Reference Range Comments POC-GLUCOSE METER (BEAKER) (test xnjw=1286) 210 mg/dL 70-110 TESTED AT [place] [address]30 POCT-GLUCOSE [id number] 13:15:00* Test Item Value Reference Range Comments POC-GLUCOSE METER (BEAKER) (test nlom=0904) 248 mg/dL 70-110 TESTED AT [place] [address] CBC W/PLT COUNT & AUTO [id number] 09:29:00* Test Item Value Reference Range Comments WHITE BLOOD CELL COUNT (BEAKER) (test fxcu=490) 6.0 K/ L 3.5-10.5 RED BLOOD CELL COUNT (BEAKER) (test mrnn=441) 3.73 M/ L 4.63-6.08 HEMOGLOBIN (BEAKER) (test glez=902) 10.8 GM/DL 13.7-17.5 HEMATOCRIT (BEAKER) (test sfhg=545) 34.6 % 40.1-51.0 MEAN CORPUSCULAR VOLUME (BEAKER) (test jwqw=321) 92.8 fL 79.0-92.2 MEAN CORPUSCULAR HEMOGLOBIN (BEAKER) (test jfyy=389) 29.0 pg 25.7-32.2 MEAN CORPUSCULAR HEMOGLOBIN CONC (BEAKER) (test zwxt=112) 31.2 GM/DL 32.3- 36.5 RED CELL DISTRIBUTION WIDTH (BEAKER) (test efuk=924) 15.6 % 11.6-14.4 PLATELET COUNT (BEAKER) (test ggtu=867) 118 K/CU MM 150-450 MEAN PLATELET VOLUME (BEAKER) (test yyha=087) 9.6 fL 9.4-12.4 NUCLEATED RED BLOOD CELLS (BEAKER) (test srkt=991) 3 /100 WBC 0-0 NEUTROPHILS RELATIVE PERCENT (BEAKER) (test jccz=047) 62 % LYMPHOCYTES RELATIVE PERCENT (BEAKER) (test cdxz=402) 15 % MONOCYTES RELATIVE PERCENT (BEAKER) (test vjfo=880) 17 % EOSINOPHILS RELATIVE PERCENT (BEAKER) (test zfjr=677) 0 % BASOPHILS RELATIVE PERCENT (BEAKER) (test kfxk=726) 0 % NEUTROPHILS ABSOLUTE COUNT (BEAKER) (test ksvr=277) 3.71 K/ L 1.78-5.38 LYMPHOCYTES ABSOLUTE COUNT (BEAKER) (test bkeb=789) 0.91 K/ L 1.32-3.57 MONOCYTES ABSOLUTE COUNT (BEAKER) (test samu=949) 1.02 K/ L 0.30-0.82 EOSINOPHILS ABSOLUTE COUNT (BEAKER) (test izdz=042) 0.01 K/ L 0.04-0.54 BASOPHILS ABSOLUTE COUNT (BEAKER) (test kzze=913) 0.01 K/ L 0.01-0.08 IMMATURE GRANULOCYTES-RELATIVE PERCENT (BEAKER) (test hknb=6351) 5 % 0-1 (MANUAL DIFFERENTIAL)2017-07-20 09:29:00* Test Item Value Reference Range Comments NEUTROPHILS - REL (DIFF) (BEAKER) (test imvt=7276) 63 % LYMPHOCYTES - REL (DIFF) (BEAKER) (test hslx=5190) 18 % MONOCYTES - REL (DIFF) (BEAKER) (test wfoq=6997) 16 % EOSINOPHILS - REL (DIFF) (BEAKER) (test oanv=1191) 1 % METAMYELOCYTES-REL (DIFF) (BEAKER) (test wabi=484) 2 % 0-0 NEUTROPHILS - ABS (DIFF) (BEAKER) (test orbp=7064) 3.78 K/ L 1.80-8.00 LYMPHOCYTES - ABS (DIFF) (BEAKER) (test grqw=3273) 1.08 K/ L 1.48-4.50 MONOCYTES - ABS (DIFF) (BEAKER) (test mkmz=4594) 0.96 K/ L 0.00-1.30 EOSINOPHILS - ABS (DIFF) (BEAKER) (test phhi=9922) 0.06 K/ L 0.00-0.50 METAMYELOCTYES - ABS (DIFF) (BEAKER) (test mrya=774) 0.12 K/ L 0.00-0.00 TOTAL COUNTED (BEAKER) (test iyhk=5719) 100 MANUAL NRBC PER 100 CELLS (BEAKER) (test lzqm=1062) 3 /100 WBC 0-0 WBC MORPHOLOGY (BEAKER) (test ygpq=889) Normal LARGE PLT(BEAKER) (test omuv=5992) Present CLUMPED PLATELETS (BEAKER) (test tvuq=603) Present ANISOCYTOSIS (BEAKER) (test klwm=765) 1+ few BASOPHILIC STIPPLING (BEAKER) (test nezr=204) Present HYPOCHROMIA (BEAKER) (test nevo=182) 1+ few MACROCYTES (BEAKER) (test yylf=412) 1+ few POIKILOCYTES (BEAKER) (test cdid=981) 1+ few POLYCHROMATOPHILLIC RBCS(BEAKER) (test pbdj=484) 1+ few POCT-GLUCOSE [id number] 08:14:00* Test Item Value Reference Range Comments POC-GLUCOSE METER (BEAKER) (test ohyf=2576) 157 mg/dL 70-110 TESTED AT [facility] [address] [facility] [address] BASIC METABOLIC [id number] 07:19:00* Test Item Value Reference Range Comments SODIUM (BEAKER) (test mrhf=339) 136 meq/L 136-145 POTASSIUM (BEAKER) (test jkyg=576) 3.5 meq/L 3.5-5.1 CHLORIDE (BEAKER) (test vzdt=628) 98 meq/L 98-107 CO2 (BEAKER) (test nswb=703) 25 meq/L 22-29 BLOOD UREA NITROGEN (BEAKER) (test zedg=903) 16 mg/dL 7-21 CREATININE (BEAKER) (test zowk=312) 0.89 mg/dL 0.57-1.25 GLUCOSE RANDOM (BEAKER) (test mofn=359) 151 mg/dL 70-105 CALCIUM (BEAKER) (test rmhg=720) 10.3 mg/dL 8.4-10.2 EGFR (BEAKER) (test vunb=3784) 102 mL/min/1.73 sq m ESTIMATED GFR IS NOT ACCURATE CREATININE CLEARANCE IN PREDICTING GLOMERULAR FILTRATION RATE. ESTIMATED GFR IS NOT APPLICABLE FOR DIALYSIS PATIENTS. POCT-GLUCOSE [id number] 21:04:00* Test Item Value Reference Range Comments POC-GLUCOSE METER (BEAKER) (test ayvu=0330) 239 mg/dL 70-110 TESTED AT [address] [address] VITAMIN B12 AND [id number] 20:32:00* Test Item Value Reference Range Comments VITAMIN B12 (BEAKER) (test gtar=717) > pg/mL 213-816 FOLATE (BEAKER) (test kgvc=305) 17.3 ng/mL >=7.0 [id number] 20:03:00* Test Item Value Reference Range Comments FERRITIN (BEAKER) (test rcln=225) 1207 ng/mL 5-275 IRON, TIBC, % SAT. (WITHOUT FERRITIN)2017-07-19 19:33:00* Test Item Value Reference Range Comments IRON (BEAKER) (test gbtz=385) 73 ug/dL 40-160 TOTAL IRON BINDING CAPACITY (BEAKER) (test xsge=728) 256 ug/dL 250-450 IRON % SATURATION (2) (BEAKER) (test apmw=6844) 29 % 20-55 POCT-GLUCOSE [id number] 18:01:00* Test Item Value Reference Range Comments POC-GLUCOSE METER (BEAKER) (test apqk=2985) 270 mg/dL 70-110 TESTED AT [address] [address] POCT-GLUCOSE [id number] 12:53:00* Test Item Value Reference Range Comments POC-GLUCOSE METER (BEAKER) (test iudh=1339) 227 mg/dL 70-110 TESTED AT [address] [address] URINE [id number] 12:38:00* Test Item Value Reference Range Comments CULTURE (BEAKER) (test wbuh=2452) >100,000 col/mL skin adria POCT-GLUCOSE [id number] 09:04:00* Test Item Value Reference Range Comments POC-GLUCOSE METER (BEAKER) (test pbov=6329) 196 mg/dL 70-110 TESTED AT [address] [address] POCT-GLUCOSE [id number] 22:24:00* Test Item Value Reference Range Comments POC-GLUCOSE METER (BEAKER) (test negb=1963) 206 mg/dL 70-110 TESTED AT [place] [address] POCT-GLUCOSE [id number] 17:41:00* Test Item Value Reference Range Comments POC-GLUCOSE METER (BEAKER) (test mywh=2043) 212 mg/dL 70-110 TESTED AT [address] [address] PUL PERF IMAGING, [facility], [id number] 17:18:00FINAL REPORT PROCEDURE: V/Q LUNG SCAN CPT CODE: 49068 INDICATION: Dyspnea, tachycardia PROTOCOL: 10.9 mCi of [...] 1. Very low probability of acute pulmonary embolization.2. Compared to the most recent previous study of 09/17/2016, the right apical defect remains. No new perfusion abnormalities are identified.3. Mild parenchymal and/or atelectatic changes bilaterally. Signed: Hawa Carlos MDReport Verified Date/Time: 07/18/2017 17: 18:45 Reading Location: [address] Reading Room W /PLT COUNT & AUTO [id number] 15:01:00* Test Item Value Reference Range Comments WHITE BLOOD CELL COUNT (BEAKER) (test mnxd=508) 6.3 K/ L 3.5-10.5 RED BLOOD CELL COUNT (BEAKER) (test vabv=335) 3.45 M/ L 4.63-6.08 HEMOGLOBIN (BEAKER) (test ctyd=929) 10.1 GM/DL 13.7-17.5 HEMATOCRIT (BEAKER) (test onfj=874) 32.2 % 40.1-51.0 MEAN CORPUSCULAR VOLUME (BEAKER) (test bnfv=237) 93.3 fL 79.0-92.2 MEAN CORPUSCULAR HEMOGLOBIN (BEAKER) (test gisz=410) 29.3 pg 25.7-32.2 MEAN CORPUSCULAR HEMOGLOBIN CONC (BEAKER) (test mudv=365) 31.4 GM/DL 32.3- 36.5 RED CELL DISTRIBUTION WIDTH (BEAKER) (test yten=564) 15.6 % 11.6-14.4 PLATELET COUNT (BEAKER) (test yoma=039) 117 K/CU MM 150-450 MEAN PLATELET VOLUME (BEAKER) (test pgmi=119) 9.8 fL 9.4-12.4 NUCLEATED RED BLOOD CELLS (BEAKER) (test vdjt=852) 1 /100 WBC 0-0 NEUTROPHILS RELATIVE PERCENT (BEAKER) (test epwp=408) 79 % LYMPHOCYTES RELATIVE PERCENT (BEAKER) (test jnjw=269) 7 % MONOCYTES RELATIVE PERCENT (BEAKER) (test cqan=118) 10 % EOSINOPHILS RELATIVE PERCENT (BEAKER) (test ndvp=817) 0 % BASOPHILS RELATIVE PERCENT (BEAKER) (test xdsw=591) 0 % NEUTROPHILS ABSOLUTE COUNT (BEAKER) (test ftsh=745) 4.94 K/ L 1.78-5.38 LYMPHOCYTES ABSOLUTE COUNT (BEAKER) (test rxqn=158) 0.44 K/ L 1.32-3.57 MONOCYTES ABSOLUTE COUNT (BEAKER) (test tdsc=512) 0.65 K/ L 0.30-0.82 EOSINOPHILS ABSOLUTE COUNT (BEAKER) (test rzxt=237) 0.01 K/ L 0.04-0.54 BASOPHILS ABSOLUTE COUNT (BEAKER) (test biav=649) 0.01 K/ L 0.01-0.08 IMMATURE GRANULOCYTES-RELATIVE PERCENT (BEAKER) (test ucha=1788) 3 % 0-1 POCT-GLUCOSE [id number] 12:19:00* Test Item Value Reference Range Comments POC-GLUCOSE METER (BEAKER) (test mnnp=5952) 118 mg/dL 70-110 TESTED AT [address] [address] RAD, CHEST, 1 VIEW, NON [id number] 10:32:00Reason for exam:->increased somnolenceShould this be performed at the bedside?->YesFINAL REPORT Chest one view. Clinical history: increased somnolence Comparison: July 06, 2017 Discussion: A frontal chest is provided. Cardiomediastinal contours are unchanged. There is mild bibasilar atelectasis. No pneumothorax, or significant pleural effusion. No acute osseous abnormality. Signed: Jac Foster Verified Date/Time: 07/18/2017 10:32:18 Reading Location: [facility] Radiology Reading Room -GLUCOSE [id number] 08:49:00* Test Item Value Reference Range Comments POC-GLUCOSE METER (BEAKER) (test rcnp=4493) 126 mg/dL 70-110 TESTED AT [place] [id number] [facility] [address] URINALYSIS W/ [id number] 07:52:00* Test Item Value Reference Range Comments COLOR (BEAKER) (test lbku=634) Yellow CLARITY (BEAKER) (test meim=796) Clear SPECIFIC GRAVITY UA (BEAKER) (test eabq=655) 1.015 1.001-1.035 PH UA (BEAKER) (test tcpk=848) 5.5 5.0-8.0 PROTEIN UA (BEAKER) (test bzmg=119) 10 mg/dL Negative GLUCOSE UA (BEAKER) (test jqxz=134) Negative Negative KETONES UA (BEAKER) (test tcwg=436) Negative Negative BILIRUBIN UA (BEAKER) (test uxtr=286) Negative Negative BLOOD UA (BEAKER) (test kioj=167) Negative Negative NITRITE UA (BEAKER) (test bkgm=973) Negative Negative LEUKOCYTE ESTERASE UA (BEAKER) (test enqs=016) Negative Negative UROBILINOGEN UA (BEAKER) (test fbof=870) 0.2 mg/dL 0.2-1.0 RBC UA (BEAKER) (test wirr=450) < /HPF WBC UA (BEAKER) (test jxkw=894) 1 /HPF MUCUS (BEAKER) (test heqf=8210) Rare SQUAMOUS EPITHELIAL (BEAKER) (test gzvv=174) 1 /HPF HYALINE CASTS (BEAKER) (test lbjq=280) 2 /LPF AMORPHOUS CRYSTALS (BEAKER) (test urqe=6083) Rare SOURCE(BEAKER) (test bzmp=9454) Urine, Voided POCT-GLUCOSE [id number] 21:33:00* Test Item Value Reference Range Comments POC-GLUCOSE METER (BEAKER) (test kpfo=1227) 106 mg/dL 70-110 TESTED AT [facility] [address] [facility] [address] CBC W/PLT COUNT & AUTO [id number] 20:47:00* Test Item Value Reference Range Comments WHITE BLOOD CELL COUNT (BEAKER) (test jrwy=154) 5.9 K/ L 3.5-10.5 RED BLOOD CELL COUNT (BEAKER) (test brqv=546) 3.95 M/ L 4.63-6.08 HEMOGLOBIN (BEAKER) (test xjjc=429) 11.4 GM/DL 13.7-17.5 HEMATOCRIT (BEAKER) (test czmu=335) 37.0 % 40.1-51.0 MEAN CORPUSCULAR VOLUME (BEAKER) (test kydn=794) 93.7 fL 79.0-92.2 MEAN CORPUSCULAR HEMOGLOBIN (BEAKER) (test mnyq=864) 28.9 pg 25.7-32.2 MEAN CORPUSCULAR HEMOGLOBIN CONC (BEAKER) (test dbnz=447) 30.8 GM/DL 32.3- 36.5 RED CELL DISTRIBUTION WIDTH (BEAKER) (test wgqh=567) 15.4 % 11.6-14.4 PLATELET COUNT (BEAKER) (test xksi=155) 127 K/CU MM 150-450 MEAN PLATELET VOLUME (BEAKER) (test iwxz=369) 9.5 fL 9.4-12.4 NUCLEATED RED BLOOD CELLS (BEAKER) (test paoa=947) 1 /100 WBC 0-0 NEUTROPHILS RELATIVE PERCENT (BEAKER) (test luie=734) 71 % LYMPHOCYTES RELATIVE PERCENT (BEAKER) (test ovlz=226) 13 % MONOCYTES RELATIVE PERCENT (BEAKER) (test ndit=814) 11 % EOSINOPHILS RELATIVE PERCENT (BEAKER) (test jbdk=879) 0 % BASOPHILS RELATIVE PERCENT (BEAKER) (test gsrd=060) 0 % NEUTROPHILS ABSOLUTE COUNT (BEAKER) (test ynid=983) 4.18 K/ L 1.78-5.38 LYMPHOCYTES ABSOLUTE COUNT (BEAKER) (test pdba=337) 0.76 K/ L 1.32-3.57 MONOCYTES ABSOLUTE COUNT (BEAKER) (test yuqx=917) 0.66 K/ L 0.30-0.82 EOSINOPHILS ABSOLUTE COUNT (BEAKER) (test lxcn=332) 0.02 K/ L 0.04-0.54 BASOPHILS ABSOLUTE COUNT (BEAKER) (test xwoo=007) 0.01 K/ L 0.01-0.08 IMMATURE GRANULOCYTES-RELATIVE PERCENT (BEAKER) (test gdrd=0011) 4 % 0-1 COMPREHENSIVE METABOLIC [id number] 18:09:00* Test Item Value Reference Range Comments TOTAL PROTEIN (BEAKER) (test qrtb=495) 6.0 gm/dL 6.0-8.3 ALBUMIN (BEAKER) (test ttuz=9867) 3.5 g/dL 3.5-5.0 ALKALINE PHOSPHATASE (BEAKER) (test baxv=896) 50 U/L 40-150 BILIRUBIN TOTAL (BEAKER) (test nixl=998) 0.4 mg/dL 0.2-1.2 SODIUM (BEAKER) (test izis=281) 138 meq/L 136-145 POTASSIUM (BEAKER) (test wtrl=485) 3.5 meq/L 3.5-5.1 CHLORIDE (BEAKER) (test wmum=075) 100 meq/L 98-107 CO2 (BEAKER) (test xqtc=373) 27 meq/L 22-29 BLOOD UREA NITROGEN (BEAKER) (test cxnl=065) 33 mg/dL 7-21 CREATININE (BEAKER) (test uwqi=064) 1.42 mg/dL 0.57-1.25 GLUCOSE RANDOM (BEAKER) (test uhaz=481) 72 mg/dL 70-105 CALCIUM (BEAKER) (test nqri=307) 9.2 mg/dL 8.4-10.2 AST (SGOT) (BEAKER) (test eojg=358) 36 U/L 5-34 ALT (SGPT) (BEAKER) (test cmqb=864) 82 U/L 6-55 EGFR (BEAKER) (test vrgh=2398) 60 mL/min/1.73 sq m ESTIMATED GFR IS NOT ACCURATE CREATININE CLEARANCE IN PREDICTING GLOMERULAR FILTRATION RATE. ESTIMATED GFR IS NOT APPLICABLE FOR DIALYSIS PATIENTS. POCT-GLUCOSE [id number] 17:26:00* Test Item Value Reference Range Comments POC-GLUCOSE METER (BENY) (test mfqb=2649) 80 mg/dL 70-110 TESTED AT [facility] [address] [facility] [address] CT, SPINE, LUMBAR, WO [id number] 20:43:00FINAL REPORT CT, SPINE, LUMBAR, WO CONTRAST INDICATION: [...] in upright position. Signed: JR Venegas Robert MDReport Verified Date/Time: 07/06/2017 20:43:51 Reading Location: [address] Body Reading Room , CHEST, PA OR AP, 1 [id number] 20:38:00Reason for exam:->sob, back painShould this be performed at the bedside?->NoFINAL REPORT History: Back pain and shortness of [...] or acute bony abnormality. Signed: Fer Ramos Verified Date/Time: 07/06/2017 20: 38:20 Reading Location: [address] Reading Room W/PLT COUNT & AUTO [id number] 20:37:00* Test Item Value Reference Range Comments WHITE BLOOD CELL COUNT (BEAKER) (test qfri=867) 13.9 10e3/ L 4.0-10.0 RED BLOOD CELL COUNT (BEAKER) (test updn=689) 4.21 10e6/ L 4.20-5.80 HEMOGLOBIN (BEAKER) (test biem=100) 12.2 g/dL 13.0-16.8 HEMATOCRIT (BEAKER) (test ubjh=803) 37.5 % 40.0-50.0 MEAN CORPUSCULAR VOLUME (BEAKER) (test azhx=503) 89.2 fL 82.0-98.0 MEAN CORPUSCULAR HEMOGLOBIN (BEAKER) (test eunq=094) 28.9 pg 27.0-33.0 MEAN CORPUSCULAR HEMOGLOBIN CONC (BEAKER) (test mttm=623) 32.5 g/dL 32.0- 36.0 RED CELL DISTRIBUTION WIDTH (BEAKER) (test xwxt=727) 14.5 % 10.3-14.2 PLATELET COUNT (BEAKER) (test kjds=195) 206 10e3/ L 150-430 MEAN PLATELET VOLUME (BEAKER) (test zclw=183) 7.4 fL 6.5-10.5 NEUTROPHILS RELATIVE PERCENT (BEAKER) (test xiig=704) 81 % LYMPHOCYTES RELATIVE PERCENT (BEAKER) (test pzon=999) 8 % MONOCYTES RELATIVE PERCENT (BEAKER) (test keyg=673) 9 % EOSINOPHILS RELATIVE PERCENT (BEAKER) (test mybx=559) 1 % BASOPHILS RELATIVE PERCENT (BEAKER) (test bjyr=605) 1 % NEUTROPHILS ABSOLUTE COUNT (BEAKER) (test xigc=039) 11.34 10e3/ L 1.80-8.00 LYMPHOCYTES ABSOLUTE COUNT (BEAKER) (test pyay=247) 1.09 10e3/ L 1.48-4.50 MONOCYTES ABSOLUTE COUNT (BEAKER) (test eibf=463) 1.23 10e3/ L 0.00-1.30 EOSINOPHILS ABSOLUTE COUNT (BEAKER) (test afhs=582) 0.18 10e3/ L 0.00-0.50 BASOPHILS ABSOLUTE COUNT (BEAKER) (test zfai=319) 0.10 10e3/ L 0.00-0.20 URINALYSIS W/ REFLEX URINE [id number] 20:28:00* Test Item Value Reference Range Comments COLOR (BEAKER) (test khjz=370) Yellow CLARITY (BEAKER) (test gule=490) Clear SPECIFIC GRAVITY UA (BEAKER) (test bqsk=575) 1.025 1.001-1.035 PH UA (BEAKER) (test icfm=229) 5.5 5.0-8.0 PROTEIN UA (BEAKER) (test oexa=838) Negative Negative GLUCOSE UA (BEAKER) (test okjx=627) Negative Negative KETONES UA (BEAKER) (test wnsy=126) Negative Negative BILIRUBIN UA (BEAKER) (test mhzi=743) Negative Negative BLOOD UA (BEAKER) (test zzlz=902) Negative Negative NITRITE UA (BEAKER) (test jfuw=487) Negative Negative LEUKOCYTE ESTERASE UA (BEAKER) (test fqtf=710) Negative Negative UROBILINOGEN UA (BEAKER) (test xrnq=408) 0.2 mg/dL 0.2-1.0 BACTERIA (BEAKER) (test fngn=738) Occasional MUCUS (BEAKER) (test rbix=5622) Moderate RBC UA-MANUAL (BEAKER) (test pfih=7145) <5 /HPF WBC UA-MANUAL (BEAKER) (test aknh=4907) <5 /HPF SQUAMOUS EPITHELIAL MANUAL (BEAKER) (test mlhg=2137) <5 /HPF SOURCE(BEAKER) (test ayok=5371) COMPREHENSIVE METABOLIC [id number] 20:25:00* Test Item Value Reference Range Comments TOTAL PROTEIN (BEAKER) (test emef=164) 6.5 gm/dL 6.0-8.5 ALBUMIN (BEAKER) (test hwax=8421) 4.0 g/dL 3.5-5.0 ALKALINE PHOSPHATASE (BEAKER) (test cjkb=201) 54 U/L 30-115 BILIRUBIN TOTAL (BEAKER) (test bqbj=277) 0.5 mg/dL 0.1-1.2 SODIUM (BEAKER) (test wnvi=688) 136 meq/L 135-148 POTASSIUM (BEAKER) (test mkfe=621) 4.6 meq/L 3.6-5.5 CHLORIDE (BEAKER) (test smaj=600) 97 meq/L 98-106 CO2 (BEAKER) (test jloj=256) 29 meq/L 24-32 BLOOD UREA NITROGEN (BEAKER) (test khym=671) 36 mg/dL 10-26 CREATININE (BEAKER) (test ldey=308) 1.60 mg/dL 0.50-1.20 GLUCOSE RANDOM (BEAKER) (test uzbp=570) 154 mg/dL 70-110 CALCIUM (BEAKER) (test cuqw=238) 10.0 mg/dL 8.5-10.5 AST (SGOT) (BEAKER) (test ojvp=177) 33 U/L 5-40 ALT (SGPT) (BEAKER) (test kmwv=728) 85 U/L 5-50 EGFR (BEAKER) (test qvfw=3217) 52 mL/min/1.73 sq m ESTIMATED GFR IS NOT ACCURATE CREATININE CLEARANCE IN PREDICTING GLOMERULAR FILTRATION RATE. ESTIMATED GFR IS NOT APPLICABLE FOR DIALYSIS PATIENTS. TSH/FREE T4 IF [id number] 10:12:00* Test Item Value Reference Range Comments THYROID STIMULATING HORMONE (BEAKER) (test sbie=839) 1.21 uIU/mL 0.35-4.94 [id number] 09:42:00* Test Item Value Reference Range Comments D-DIMER QUANTITATIVE (BEAKER) (test mwks=780) 0.70 MG/L FEU <0.50 REGARDING D-DIMER RESULTS: Results of this D-Dimer test should always be interpreted in conjunction with the patient's medical history, clinical presentation and other findings. DVT clinical diagnosis should not be based on the results of INNOVANCE D-Dimer alone.BASIC METABOLIC [id number] 09:34:00 * Test Item Value Reference Range Comments SODIUM (BEAKER) (test cimp=321) 137 meq/L 135-148 POTASSIUM (BEAKER) (test gxhj=583) 3.3 meq/L 3.6-5.5 CHLORIDE (BEAKER) (test fkon=539) 100 meq/L 98-106 CO2 (BEAKER) (test pbmm=921) 28 meq/L 24-32 BLOOD UREA NITROGEN (BEAKER) (test xcpe=781) 16 mg/dL 10-26 CREATININE (BEAKER) (test vowf=285) 1.21 mg/dL 0.50-1.20 GLUCOSE RANDOM (BEAKER) (test yuxu=168) 93 mg/dL 70-110 CALCIUM (BEAKER) (test dkfw=046) 10.1 mg/dL 8.5-10.5 EGFR (BEAKER) (test lyff=8368) 72 mL/min/1.73 sq m ESTIMATED GFR IS NOT ACCURATE CREATININE CLEARANCE IN PREDICTING GLOMERULAR FILTRATION RATE. ESTIMATED GFR IS NOT APPLICABLE FOR DIALYSIS PATIENTS. RAD, CHEST, 2 [id number] 09:30:00Reason for exam:->NAUSEAonset yesterdayReason for exam:->COUGHReason for exam:->NASAL CONGESTIONShould this be performed at the bedside?->NoFINAL REPORT History: Cough, congestion Comparison: 12/02/2016 Findings: Examination limited by the patient's body habitus. The lungs appear clear aside from chronic linear scarring lateral to the left heart border. No pleural effusions or pneumothorax. The heart shadow is mildly enlarged, similar in appearance. The thoracic aorta is mildly tortuous. No acute skeletal abnormalities are visualized. Impression: No evidence of acute cardiopulmonary disease. Signed: Aby Gustafson MDReport Verified Date/Time: 06/09/2017 09:30:15 Reading Location : [place] [id number] Ortho Consult Reading Room D [id number] 09:27:00* Test Item Value Reference Range Comments RAPID CKMB (BEAKER) (test xbys=2813) 3.0 ng/mL 0.0-4.3 RAPID TROPONIN [id number] 09:27:00* Test Item Value Reference Range Comments RAPID TROPONIN I (BEAKER) (test iaof=2684) < ng/mL <0.05 CBC W/PLT COUNT & AUTO [id number] 09:12:00* Test Item Value Reference Range Comments WHITE BLOOD CELL COUNT (BEAKER) (test yhnq=273) 7.1 10e3/ L 4.0-10.0 RED BLOOD CELL COUNT (BEAKER) (test mspl=710) 4.08 10e6/ L 4.20-5.80 HEMOGLOBIN (BEAKER) (test rfha=032) 12.0 g/dL 13.0-16.8 HEMATOCRIT (BEAKER) (test yvua=440) 36.5 % 40.0-50.0 MEAN CORPUSCULAR VOLUME (BEAKER) (test pyfc=892) 89.3 fL 82.0-98.0 MEAN CORPUSCULAR HEMOGLOBIN (BEAKER) (test lcrt=576) 29.3 pg 27.0-33.0 MEAN CORPUSCULAR HEMOGLOBIN CONC (BEAKER) (test mmlm=679) 32.8 g/dL 32.0- 36.0 RED CELL DISTRIBUTION WIDTH (BEAKER) (test sver=743) 13.3 % 10.3-14.2 PLATELET COUNT (BEAKER) (test mclx=841) 207 10e3/ L 150-430 MEAN PLATELET VOLUME (BEAKER) (test yrgm=662) 6.9 fL 6.5-10.5 NEUTROPHILS RELATIVE PERCENT (BEAKER) (test ndcf=212) 70 % LYMPHOCYTES RELATIVE PERCENT (BEAKER) (test fvgq=489) 18 % MONOCYTES RELATIVE PERCENT (BEAKER) (test whmh=797) 10 % EOSINOPHILS RELATIVE PERCENT (BEAKER) (test ibxu=491) 2 % BASOPHILS RELATIVE PERCENT (BEAKER) (test tbuv=724) 1 % NEUTROPHILS ABSOLUTE COUNT (BEAKER) (test bztj=507) 4.95 10e3/ L 1.80-8.00 LYMPHOCYTES ABSOLUTE COUNT (BEAKER) (test wvfb=224) 1.28 10e3/ L 1.48-4.50 MONOCYTES ABSOLUTE COUNT (BEAKER) (test ceps=198) 0.71 10e3/ L 0.00-1.30 EOSINOPHILS ABSOLUTE COUNT (BEAKER) (test uabi=519) 0.11 10e3/ L 0.00-0.50 BASOPHILS ABSOLUTE COUNT (BEAKER) (test vxaw=493) 0.04 10e3/ L 0.00-0.20 URINALYSIS W/ [id number] 11:17:00* Test Item Value Reference Range Comments COLOR (BEAKER) (test yign=444) Yellow CLARITY (BEAKER) (test nuxr=586) Clear SPECIFIC GRAVITY UA (BEAKER) (test jxnx=128) 1.020 1.001-1.035 PH UA (BEAKER) (test kxaj=313) 6.0 5.0-8.0 PROTEIN UA (BEAKER) (test dfbc=936) Negative Negative GLUCOSE UA (BEAKER) (test jyyd=660) Negative Negative KETONES UA (BEAKER) (test hqwp=768) Negative Negative BILIRUBIN UA (BEAKER) (test euwm=933) Negative Negative BLOOD UA (BEAKER) (test svse=044) Negative Negative NITRITE UA (BEAKER) (test ckrn=665) Negative Negative LEUKOCYTE ESTERASE UA (BEAKER) (test rxao=935) Negative Negative UROBILINOGEN UA (BEAKER) (test okzf=988) 0.2 mg/dL 0.2-1.0 BACTERIA (BEAKER) (test molq=277) Occasional MUCUS (BEAKER) (test oyhe=7209) Few RBC UA-MANUAL (BEAKER) (test lkiu=8430) None Seen /HPF WBC UA-MANUAL (BEAKER) (test tknl=8205) <5 /HPF SQUAMOUS EPITHELIAL MANUAL (BEAKER) (test ydoj=1319) 5-10 /HPF SOURCE(BEAKER) (test sxqw=6787) RAPID TROPONIN [id number] 09:34:00* Test Item Value Reference Range Comments RAPID TROPONIN I (BEAKER) (test lpvr=9967) < ng/mL <0.05 COMPREHENSIVE METABOLIC [id number] 09:32:00* Test Item Value Reference Range Comments TOTAL PROTEIN (BEAKER) (test pqpx=446) 6.6 gm/dL 6.0-8.5 ALBUMIN (BEAKER) (test yujs=2860) 3.7 g/dL 3.5-5.0 ALKALINE PHOSPHATASE (BEAKER) (test fige=997) 49 U/L 30-115 BILIRUBIN TOTAL (BEAKER) (test pqpw=529) 0.3 mg/dL 0.1-1.2 SODIUM (BEAKER) (test prfi=142) 136 meq/L 135-148 POTASSIUM (BEAKER) (test bnbb=368) 4.1 meq/L 3.6-5.5 CHLORIDE (BEAKER) (test ljft=774) 98 meq/L 98-106 CO2 (BEAKER) (test cral=903) 27 meq/L 24-32 BLOOD UREA NITROGEN (BEAKER) (test wqyg=699) 22 mg/dL 10-26 CREATININE (BEAKER) (test fbyr=545) 1.36 mg/dL 0.50-1.20 GLUCOSE RANDOM (BEAKER) (test nclt=066) 180 mg/dL 70-110 CALCIUM (BEAKER) (test izdg=722) 10.0 mg/dL 8.5-10.5 AST (SGOT) (BEAKER) (test nmmh=193) 43 U/L 5-40 ALT (SGPT) (BEAKER) (test nqry=812) 74 U/L 5-50 EGFR (BEAKER) (test tjzj=4367) 63 mL/min/1.73 sq m ESTIMATED GFR IS NOT ACCURATE CREATININE CLEARANCE IN PREDICTING GLOMERULAR FILTRATION RATE. ESTIMATED GFR IS NOT APPLICABLE FOR DIALYSIS PATIENTS. CBC W/PLT COUNT & AUTO [id number] 09:30:00* Test Item Value Reference Range Comments WHITE BLOOD CELL COUNT (BEAKER) (test wxdf=331) 7.8 10e3/ L 4.0-10.0 RED BLOOD CELL COUNT (BEAKER) (test brxq=432) 4.26 10e6/ L 4.20-5.80 HEMOGLOBIN (BEAKER) (test xwsq=238) 12.7 g/dL 13.0-16.8 HEMATOCRIT (BEAKER) (test qhfw=572) 38.8 % 40.0-50.0 MEAN CORPUSCULAR VOLUME (BEAKER) (test vymz=584) 91.2 fL 82.0-98.0 MEAN CORPUSCULAR HEMOGLOBIN (BEAKER) (test jzsx=416) 29.7 pg 27.0-33.0 MEAN CORPUSCULAR HEMOGLOBIN CONC (BEAKER) (test qvcg=808) 32.6 g/dL 32.0- 36.0 RED CELL DISTRIBUTION WIDTH (BEAKER) (test bakc=612) 16.1 % 10.3-14.2 PLATELET COUNT (BEAKER) (test iyse=850) 249 10e3/ L 150-430 MEAN PLATELET VOLUME (BEAKER) (test pnpb=842) 7.7 fL 6.5-10.5 NEUTROPHILS RELATIVE PERCENT (BEAKER) (test ormx=730) 74 % LYMPHOCYTES RELATIVE PERCENT (BEAKER) (test mniq=202) 15 % MONOCYTES RELATIVE PERCENT (BEAKER) (test tufi=471) 9 % EOSINOPHILS RELATIVE PERCENT (BEAKER) (test wdli=292) 1 % BASOPHILS RELATIVE PERCENT (BEAKER) (test hbhq=371) 1 % NEUTROPHILS ABSOLUTE COUNT (BEAKER) (test wied=332) 5.80 10e3/ L 1.80-8.00 LYMPHOCYTES ABSOLUTE COUNT (BEAKER) (test pskh=820) 1.18 10e3/ L 1.48-4.50 MONOCYTES ABSOLUTE COUNT (BEAKER) (test koor=726) 0.70 10e3/ L 0.00-1.30 EOSINOPHILS ABSOLUTE COUNT (BEAKER) (test dgcl=894) 0.09 10e3/ L 0.00-0.50 BASOPHILS ABSOLUTE COUNT (BEAKER) (test bvil=829) 0.05 10e3/ L 0.00-0.20 POCT-GLUCOSE [id number] 12:36:00* Test Item Value Reference Range Comments POC-GLUCOSE METER (BEAKER) (test xzyz=4437) 161 mg/dL 70-110 TESTED AT [facility] [address] [facility] [address] POCT-GLUCOSE [id number] 08:08:00* Test Item Value Reference Range Comments POC-GLUCOSE METER (BEAKER) (test qqce=2104) 155 mg/dL 70-110 TESTED AT [facility] [address] [facility] [address] [id number] 06:17:00* Test Item Value Reference Range Comments PHOSPHORUS (BEAKER) (test kazd=241) 2.6 mg/dL 2.3-4.7 [id number] 06:17:00* Test Item Value Reference Range Comments MAGNESIUM (BEAKER) (test frjy=139) 1.7 mg/dL 1.6-2.6 BASIC METABOLIC [id number] 06:17:00* Test Item Value Reference Range Comments SODIUM (BEAKER) (test ifjo=451) 136 meq/L 136-145 POTASSIUM (BEAKER) (test pcxc=901) 3.9 meq/L 3.5-5.1 CHLORIDE (BEAKER) (test zckw=702) 98 meq/L 98-107 CO2 (BEAKER) (test euyl=914) 25 meq/L 22-29 BLOOD UREA NITROGEN (BEAKER) (test fqsh=919) 29 mg/dL 7-21 CREATININE (BEAKER) (test xxmb=999) 1.52 mg/dL 0.57-1.25 GLUCOSE RANDOM (BEAKER) (test mzja=245) 196 mg/dL 70-105 CALCIUM (BEAKER) (test drqt=755) 9.9 mg/dL 8.4-10.2 EGFR (BEAKER) (test fsyt=1708) 55 mL/min/1.73 sq m ESTIMATED GFR IS NOT ACCURATE CREATININE CLEARANCE IN PREDICTING GLOMERULAR FILTRATION RATE. ESTIMATED GFR IS NOT APPLICABLE FOR DIALYSIS PATIENTS. HEPATIC FUNCTION [id number] 06:17:00* Test Item Value Reference Range Comments TOTAL PROTEIN (BEAKER) (test qmui=744) 7.0 gm/dL 6.0-8.3 ALBUMIN (BEAKER) (test cmxy=0194) 4.0 g/dL 3.5-5.0 BILIRUBIN TOTAL (BEAKER) (test royh=853) 0.3 mg/dL 0.2-1.2 BILIRUBIN DIRECT (BEAKER) (test jvsg=457) 0.1 mg/dL 0.1-0.5 ALKALINE PHOSPHATASE (BEAKER) (test xvuu=041) 46 U/L 40-150 AST (SGOT) (BEAKER) (test ghzj=156) 23 U/L 5-34 ALT (SGPT) (BEAKER) (test djjr=856) 73 U/L 6-55 [id number] 06:17:00* Test Item Value Reference Range Comments LIPASE (BEAKER) (test udim=170) 65 U/L 8-78 POCT-GLUCOSE [id number] 21:48:00* Test Item Value Reference Range Comments POC-GLUCOSE METER (BEAKER) (test onil=1460) 261 mg/dL 70-110 TESTED AT [facility] [address] [facility] [address] POCT-GLUCOSE [id number] 17:17:00* Test Item Value Reference Range Comments POC-GLUCOSE METER (AKER) (test ktdm=8128) 314 mg/dL 70-110 TESTED AT [address] [address] CREATINE KINASE (CK), TOTAL AND [id number] 13:08:00* Test Item Value Reference Range Comments CREATINE KINASE TOTAL (BEAKER) (test ykjl=379) 125 U/L 29-200 CREATINE KINASE-MB (BEAKER) (test wufq=222) 1.7 ng/mL 0.0-6.6 CREATINE KINASE-MB INDEX (BEAKER) (test hsls=359) 1.4 % Effective 08/03/2014: CK-MB Reference Range ChangeNew: 0.0-6.6 Previous: 0.0- 4.9CK-MB Reference Range:<6.7 Normal6.7-10.0 Borderline>10.0 AbnormalTROPONIN [id number] 13:08:00* Test Item Value Reference Range Comments TROPONIN I (BEAKER) (test gubl=565) 0.05 ng/mL 0.00-0.03 Effective 08/03/2014: Reference Range ChangeNew: 0.00-0.03 Previous 0.00- 0.15Troponin I (TnI) levels must be interpreted in [...] failure, acidosis, acute neurological disease, and persistent tachyarrhythmia.BASIC METABOLIC [id number] 13:05:00* Test Item Value Reference Range Comments SODIUM (BEAKER) (test tfll=157) 137 meq/L 136-145 POTASSIUM (BEAKER) (test fkve=299) 3.9 meq/L 3.5-5.1 CHLORIDE (BEAKER) (test ugxo=321) 98 meq/L 98-107 CO2 (BEAKER) (test tnwz=476) 24 meq/L 22-29 BLOOD UREA NITROGEN (BEAKER) (test mqnv=457) 31 mg/dL 7-21 CREATININE (BEAKER) (test wfwq=264) 1.69 mg/dL 0.57-1.25 GLUCOSE RANDOM (BEAKER) (test abob=597) 328 mg/dL 70-105 CALCIUM (BEAKER) (test eogt=816) 9.7 mg/dL 8.4-10.2 EGFR (BEAKER) (test baum=8142) 49 mL/min/1.73 sq m ESTIMATED GFR IS NOT ACCURATE CREATININE CLEARANCE IN PREDICTING GLOMERULAR FILTRATION RATE. ESTIMATED GFR IS NOT APPLICABLE FOR DIALYSIS PATIENTS. POCT-GLUCOSE [id number] 12:22:00* Test Item Value Reference Range Comments POC-GLUCOSE METER (BEAKER) (test bbdp=5559) 324 mg/dL 70-110 TESTED AT [facility] [address] [facility] [address] POCT-GLUCOSE [id number] 08:25:00* Test Item Value Reference Range Comments POC-GLUCOSE METER (BEAKER) (test ekkt=2503) 245 mg/dL 70-110 TESTED AT [facility] [address] [facility] [address] RAPID [id number] 22:27:00* Test Item Value Reference Range Comments RAPID CKMB (BEAKER) (test asjf=8870) 2.2 ng/mL 0.0-4.3 RAPID TROPONIN [id number] 22:27:00* Test Item Value Reference Range Comments RAPID TROPONIN I (BEAKER) (test rguc=9973) 0.05 ng/mL <0.05 BASIC METABOLIC [id number] 22:25:00* Test Item Value Reference Range Comments SODIUM (BEAKER) (test loos=318) 137 meq/L 135-148 POTASSIUM (BEAKER) (test fpag=975) 2.9 meq/L 3.6-5.5 CHLORIDE (BEAKER) (test olog=462) 97 meq/L 98-106 CO2 (BEAKER) (test etrl=014) 31 meq/L 24-32 BLOOD UREA NITROGEN (BEAKER) (test cuxk=242) 35 mg/dL 10-26 CREATININE (BEAKER) (test bzwv=627) 1.52 mg/dL 0.50-1.20 GLUCOSE RANDOM (BEAKER) (test rhfu=206) 148 mg/dL 70-110 CALCIUM (BEAKER) (test jugk=043) 9.6 mg/dL 8.5-10.5 EGFR (BEAKER) (test npcq=3627) 55 mL/min/1.73 sq m ESTIMATED GFR IS NOT ACCURATE CREATININE CLEARANCE IN PREDICTING GLOMERULAR FILTRATION RATE. ESTIMATED GFR IS NOT APPLICABLE FOR DIALYSIS PATIENTS. [id number] 22:25:00* Test Item Value Reference Range Comments LIPASE (BEAKER) (test fjfp=487) 519 U/L 40-240 HEPATIC FUNCTION [id number] 22:20:00* Test Item Value Reference Range Comments TOTAL PROTEIN (BEAKER) (test vpwg=668) 7.2 gm/dL 6.0-8.5 ALBUMIN (BEAKER) (test nwdv=2185) 3.9 g/dL 3.5-5.0 BILIRUBIN TOTAL (BEAKER) (test edrj=343) 0.4 mg/dL 0.1-1.2 BILIRUBIN DIRECT (BEAKER) (test ylrf=973) 0.2 mg/dL 0.0-0.4 ALKALINE PHOSPHATASE (BEAKER) (test alro=020) 68 U/L 30-115 AST (SGOT) (BEAKER) (test wycc=834) 44 U/L 5-40 ALT (SGPT) (BEAKER) (test wudz=225) 81 U/L 5-50 CBC W/PLT COUNT & AUTO [id number] 22:12:00* Test Item Value Reference Range Comments WHITE BLOOD CELL COUNT (BEAKER) (test autc=340) 9.4 10e3/ L 4.0-10.0 RED BLOOD CELL COUNT (BEAKER) (test kkow=649) 4.33 10e6/ L 4.20-5.80 HEMOGLOBIN (BEAKER) (test euod=115) 13.0 g/dL 13.0-16.8 HEMATOCRIT (BEAKER) (test mjid=113) 39.4 % 40.0-50.0 MEAN CORPUSCULAR VOLUME (BEAKER) (test ftwf=892) 91.1 fL 82.0-98.0 MEAN CORPUSCULAR HEMOGLOBIN (BEAKER) (test wvtl=915) 30.1 pg 27.0-33.0 MEAN CORPUSCULAR HEMOGLOBIN CONC (BEAKER) (test cfwc=411) 33.0 g/dL 32.0- 36.0 RED CELL DISTRIBUTION WIDTH (BEAKER) (test rzxs=123) 15.8 % 10.3-14.2 PLATELET COUNT (BEAKER) (test iwqm=096) 208 10e3/ L 150-430 MEAN PLATELET VOLUME (BEAKER) (test iamt=588) 7.4 fL 6.5-10.5 NEUTROPHILS RELATIVE PERCENT (BEAKER) (test iwsq=252) 72 % LYMPHOCYTES RELATIVE PERCENT (BEAKER) (test hycm=293) 17 % MONOCYTES RELATIVE PERCENT (BEAKER) (test nlpi=054) 10 % EOSINOPHILS RELATIVE PERCENT (BEAKER) (test eztv=567) 1 % BASOPHILS RELATIVE PERCENT (BEAKER) (test hvys=778) 1 % NEUTROPHILS ABSOLUTE COUNT (BEAKER) (test gqfn=629) 6.75 10e3/ L 1.80-8.00 LYMPHOCYTES ABSOLUTE COUNT (BEAKER) (test gtdm=259) 1.59 10e3/ L 1.48-4.50 MONOCYTES ABSOLUTE COUNT (BEAKER) (test uvmu=818) 0.94 10e3/ L 0.00-1.30 EOSINOPHILS ABSOLUTE COUNT (BEAKER) (test hvyi=159) 0.10 10e3/ L 0.00-0.50 BASOPHILS ABSOLUTE COUNT (BEAKER) (test hozi=335) 0.06 10e3/ L 0.00-0.20
[2017-11-18] MEDS ORDERED: PIPER-TAZ 3.375 GM 50 ML IV STA (12:57)
[2017-11-18] MEDS ORDERED: SODIUM CHLORIDE 0.9% 1000ML 1,000 ML IV STA (12:57)
[2017-11-18] MEDS ORDERED: ONDANSETRON HCL INJ 2 MG/ML VIAL IV STA (12:57)
[2017-11-18] MEDS ORDERED: MORPHINE SULFATE 4 MG/ML SYR IV STA (12:57)
[2017-11-18] MEDS ORDERED: VANCOMYCIN 1GM/NS 250 ML 250 ML IV ONE (13:00)
[2017-11-18] MEDS ORDERED: MORPHINE SULFATE 2 MG/ML SYR ONE (13:25)
[2017-11-18 13:34] LABS: BASOPHILS % 0.4 % (0.0-1.0); EOSINOPHILS # (AUTO) 0.1 (0.0-0.4); EOSINOPHILS % 0.9 % (0.0-6.0); HEMATOCRIT 32.5 % (38.2-49.6); HEMOGLOBIN 9.8 g/dL (14.0-18.0); LYMPHOCYTES # (AUTO) 1.2 (1.0-3.2); LYMPHOCYTES % 10.4 % (18.0-39.1); MEAN CORPUSCULAR HEMOGLOBIN 26.6 pg (28-32); MEAN CORPUSCULAR HGB CONC 30.2 g/dL (31-35); MEAN CORPUSCULAR VOLUME 88.3 fL (81-99); MONOCYTES # (AUTO) 0.8 (0.2-0.8); MONOCYTES % 7.1 % (4.4-11.3); NEUTROPHILS # (AUTO) 8.9 (2.1-6.9); NEUTROPHILS % 80.6 % (38.7-80.0); PLATELET COUNT 255 x10e3/uL (140-360); RED BLOOD COUNT 3.68 x10e6/uL (4.3-5.7); RED CELL DISTRIBUTION WIDTH 14.8 % (11.7-14.4)
[2017-11-18 13:52] LABS: ALANINE AMINOTRANSFERASE 27 IU/L (0-55); ALBUMIN 3.2 g/dL (3.5-5.0); ALBUMIN/GLOBULIN RATIO 0.9 (0.8-2.0); ALKALINE PHOSPHATASE 43 IU/L (40-150); ANION GAP 16.1 mmol/L (8-16); BLOOD UREA NITROGEN 18 mg/dL (7-26); BUN/CREATININE RATIO 14 (6-25); CALCIUM 9.6 mg/dL (8.4-10.2); CARBON DIOXIDE 24 mmol/L (22-29); CHLORIDE 104 mmol/L (98-107); CREATINE KINASE 168 IU/L (30-200); CREATININE, SERUM 1.32 mg/dL (0.72-1.25); EST GLOMERULAR FILTRATION RATE > 60 ML/MIN (60-); GLUCOSE 130 mg/dL (74-118); POTASSIUM 4.1 mmol/L (3.5-5.1); SODIUM 140 mmol/L (136-145)
--- NOTE | 2017-11-18 15:02 | Diagnostic Imaging Report ---
PROCEDURE:HAND RIGHT 3 VIEWS AP \T\ LAT COMPARISON:None. INDICATIONS:HAND PAIN FOR ONE WEEK FINDINGS: There are no fractures, dislocations, lytic or blastic lesions. Mild periarticular osteopenia. Vascular calcifications. The soft-tissues are unremarkable. CONCLUSION: No acute fracture or dislocation of the right hand. Dictated by: Manuel Schroeder M.D. on 11/18/2017 at 15:02 Electronically approved by: Manuel Schroeder M.D. on 11/18/2017 at 15:02
[2017-11-18] MEDS: SODIUM CHLORIDE 0.9% 1000ML 1,000 ML IV SCH (15:33)
--- OUTSIDE RECORDS SUMMARY | 2017-11-18 15:40 | XMS REPORT | Clinical Summary ---
Author Author APARNA [facility] Address Unknown Phone Unavailable Care Team Providers Care Program Clinician Name Role Phone PCP Unavailable Allergies No [...] 17 30 gauge x 5/16" Syrg lancets [facility] Monitor fasting and 50 [...] fasting and 1 each 0 09/23/[address] [facility] bedtime glucose levels. [address] [facility] Monitor fasting and 50 each 0 09/23/19 08/06/20 Discontin bedtime glucose levels. 17 17 ued BLOOD-GLUCOSE METER 1 strip by Miscellaneous 30 each 0 09/23/19 Discontin (BLOOD GLUCOSE TEST route 2 (two) times daily 17 17 ued STRIPS) ([facility]) [facility] Monitor fasting and bedtime [...] Date Dehydration 11/20/2016 Mixed connective tissue disease ([facility]) 11/20/2016 ILD (interstitial lung disease) ([facility]) 11/20/2016 DM type 2 (diabetes mellitus, type 2) ([facility]) 11/20/2016 PVD (peripheral vascular disease) ([facility]) 11/20/2016 Hypokalemia 11/19/2016 Generalized weakness 11/19/2016 ILD (interstitial lung disease) ([facility]) 09/18/2016 COPD exacerbation ([facility]) 09/18/2016 Acute on chronic renal failure ([facility]) 06/14/2015 ATN (acute tubular necrosis) ([facility]) 06/14/2015 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 LORENA treated with BiPAP 06/14/2015 Acute GI bleeding 05/31/2015 Shortness of breath 02/01/2015 Pulmonary hemorrhage 09/20/2014 Lung nodule, multiple 09/20/2014 Duodenal ulcer 09/20/2014 Fever 09/14/2014 Leukocytosis 09/14/2014 Lupus 09/14/2014 Rheumatoid arthritis ([facility]) 09/14/2014 Anemia 09/11/2014 S/P AKA (above knee amputation) ([facility]) 04/14/2014 Overview: SNOMED/[place] [id number] 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 PAD (peripheral artery disease) s/p redo FEMPOP 04/01/2014 GI AVM (gastrointestinal arteriovenous vascular malformation) Encounters Date Type Specialty Care Team Description 09/24/2017 Emergency Emergency Medicine Tejal Lo MD Left elbow pain (Primary Dx) 09/24/2017 Orders Only General Internal Medicine 07/25/2017 [facility] Physical Medicine and Jose, Acute GI bleeding;ATN - Encounter Rehabilitation MD Jim (acute tubular necrosis) 08/06/2017 ([facility]);Generalized weakness;Status post bilateral above knee amputation ([facility]);Impaired mobility and ADLs;Gait abnormality;Minor neurocognitive disorder 07/18/2017 [...] Taken Blood Pressure 125/79 09/24/2017 3:31 PM WEBFED OFFSET PRESS OPERATOR Pulse 90 09/24/2017 3:12 PM WEBFED OFFSET PRESS OPERATOR Temperature 36.8 C (98.2 F) 09/24/2017 11:31 AM WEBFED OFFSET PRESS OPERATOR Respiratory Rate 24 09/24/2017 3:31 PM WEBFED OFFSET PRESS OPERATOR Oxygen Saturation 98% 09/24/2017 3:31 PM WEBFED OFFSET PRESS OPERATOR Inhaled Oxygen - - Concentration Weight 145.2 kg (320 lb) 09/24/2017 11:31 AM WEBFED OFFSET PRESS OPERATOR Height 182.9 cm (6' 0.01") 07/25/2017 2:00 PM WEBFED OFFSET PRESS OPERATOR Body Mass Index 43.39 09/24/2017 11:31 AM WEBFED OFFSET PRESS OPERATOR Plan of Treatment Not on file Implants Implanted Type Area Supervisor [employer] Device Expiration Model / Identifier Date Serial / Lot Graft,Seal Ptfe Thin Wall Straight Graft/Patc Left: Leg TERUMO 2017 [id number] / [id number] - [id number] CARDIOVASCULAR [id number] Implanted: Qty: 1 on 03/29/2014 by SYSTEMS / Job Kern MD [id number] Results * RHYTHM STRIP - SCAN [...] MD Report Verified Date/Time:09/24/2017 14:44:52 Reading Location: [facility] Radiology Reading Room Procedure Note Interface, External Ris In - 09/24/2017 2:47 PM WEBFED OFFSET PRESS OPERATOR FINAL REPORT TECHNIQUE: Frontal chest radiographs dated 09/24/2017. CLINICAL HISTORY: Arm pain COMPARISON STUDY: Chest radiograph dated 07/28/2017 IMPRESSION: Lungs are clear. No pleural effusion or pneumothorax. Cardiomediastinal silhouette is normal in size. No pulmonary edema. No fracture. Signed: Kaden Allen MD Report Verified Date/Time: 09/24/2017 14:44:52 Reading Location: [facility] Radiology Reading Room * Rapid Influenza A&B Screen (09/24/2017 2:32 PM) Component Value Ref Range Rapid Influenza A Antigen Negative Negative, Inconclusive Rapid influenza B Antigen Negative Negative, Inconclusive Specimen Performing Laboratory Nasal - Nasal Mucosa [facility], [facility], [facility] [address] [place] [address] * B-type natriuretic peptide (09/24/2017 2:09 PM) Component Value Ref Range BNP 66 0 - 100 pg/mL Specimen Performing Laboratory Blood - Arm, Right [facility], [facility], [facility] [address] [place] [address] * XR elbow 3 views min left [...] MD Report Verified Date/Time:09/24/2017 13:45:45 Reading Location: [facility] Radiology Reading Room Procedure Note Interface, External Ris In - 09/24/2017 1:48 PM WEBFED OFFSET PRESS OPERATOR FINAL REPORT TECHNIQUE: Frontal, lateral, and oblique [...] Report Verified Date/Time: 09/24/2017 13:45:45 Reading Location: [facility] Radiology Reading Room * Rapid Troponin I ([facility] Only) (09/24/2017 1:20 PM) Only the most recent of 4 results within the time period is included. Component Value Ref Range Rapid Troponin I <0.05 <0.05 ng/mL Specimen Performing Laboratory Blood - Arm, Right [facility], [facility], [facility] [address] [place] [address] * CBC with platelet count + automated [...] Specimen Performing Laboratory Blood - Arm, Right [facility], [facility] [address] [place] [address] * CBC with platelet count + automated diff (09/24/2017 1:20 PM) Only the most recent of 14 results within the time period is included. Specimen Performing Laboratory Blood Narrative The following orders were created for panel order CBC with platelet count + automated diff. Procedure Abnormality Status --------- - ------ CBC with platelet count ...[[id number]]AbnormalFinal result Please view results for these tests on the individual orders. * ECG 12 lead (09/24/2017 12:03 PM) Only the most recent of 6 results within the time period is included. Specimen Performing Laboratory GE MUSE Narrative Ventricular Rate 79 BPM Atrial Rate 79 BPM P-R Interval 162 ms QRS Duration 142 ms Q-T Interval 438 ms QTC Calculation(Bazett) 502 ms P [place] 46 degrees R [place] -55 degrees T [place] 129 degrees Sinus rhythm with occasional Premature [...] External Ris In - 09/25/2017 7:00 AM WEBFED OFFSET PRESS OPERATOR Ventricular Rate 79 BPM Atrial Rate 79 BPM P-R Interval 162 ms QRS Duration 142 ms Q-T Interval 438 ms QTC Calculation(Bazett) 502 ms P [place] 46 degrees R [place] -55 degrees T [place] 129 degrees Sinus rhythm with occasional Premature [...] Range POC-Glucose Meter 127 (H)Comment: TESTED AT [facility] [address] [place] [address] 70 - 110 mg /dL [place] [id number] Specimen Performing Laboratory Blood [facility] [address] [address] * XR hand 3 views right (08/06/2017 [...] MD Report Verified Date/Time:08/06/2017 10:57:59 Reading Location: [facility] Radiology Reading Room Procedure Note Interface, External Ris In - 08/06/2017 11:29 AM WEBFED OFFSET PRESS OPERATOR FINAL REPORT Right hand three views 08/06/2017 [...] Report Verified Date/Time: 08/06/2017 10:57:59 Reading Location: [facility] Radiology Reading Room * Manual Differential (08/05/2017 [...] few Specimen Performing Laboratory Blood - Arm, [address] [address] * Basic Metabolic Panel (08/05/2017 5:42 AM) [...] PATIENTS. Specimen Performing Laboratory Blood - Arm, [address] [address] * Testosterone, free + total (07/29/2017 5:46 [...] analytical performance characteristics have been determined by [facility]. It has not been cleared or approved by the US Food and Drug Administration. This assay has been validated pursuant to the CLIA regulations and is used for clinical purposes. Specimen Performing Laboratory Blood - Arm, Left [facility] [address] [place] [address] Narrative Performing Lab *SPL [facility], [address] [place] [address] B Rubina TORRES, FCAP * T4, free (07/29/2017 5:46 AM) Component Value Ref Range Free T4 0.80 0.70 - 1.48 ng/dL Specimen Performing Laboratory Blood - Arm, Left [facility] [address] [place] [address] * XR chest 2 views (07/28/2017 7:39 [...] MD Report Verified Date/Time:07/28/2017 21:23:01 Reading Location: [address] Reading Room Procedure Note Interface, External Ris In - 07/28/2017 9:25 PM WEBFED OFFSET PRESS OPERATOR FINAL REPORT EXAMINATION: 2 VIEW CHEST INDICATION: [...] Report Verified Date/Time: 07/28/2017 21:23:01 Reading Location: [address] Reading Room * TSH/Free T4 If Indicated (07/27/2017 5:45 AM) Only the most recent of 2 results within the time period is included. Component Value Ref Range TSH 0.70 0.35 - 4.94 uIU/mL Specimen Performing Laboratory Blood - Arm, [address] [address] * Prothrombin time/INR (07/27/2017 5:45 AM) Component Value Ref Range Protime 13.4 11.7 - 14.7 seconds INR 1.0 <=5.9 Specimen Performing Laboratory Blood - Arm, [address] [address] Narrative RECOMMENDED COUMADIN/WARFARIN INR THERAPY RANGES STANDARD [...] Specimen Performing Laboratory Blood - Arm, Left [address] [address] * Urinalysis w/ Microscopic (07/26/2017 5:37 AM) Only the most recent of 3 results within the time period is included. Component Value Ref Range Color, UA Yellow Clarity, UA Clear Specific [place], UA 1.018 1.001 - 1.035 pH, UA [...] Specimen Performing Laboratory Urine - Urine, Voided [address] [address] * Phosphorus (07/25/2017 4:43 AM) Only the most recent of 2 results within the time period is included. Component Value Ref Range Phosphorus 3.8 2.3 - 4.7 mg/dL Specimen Performing Laboratory Blood [address] [address] * Magnesium (07/25/2017 4:43 AM) Only the most recent of 2 results within the time period is included. Component Value Ref Range Magnesium 1.0 (LL) 1.6 - 2.6 mg/dL Specimen Performing Laboratory Blood [address] [address] * TRANSFUSION SERVICE REPORT - SCAN (07/20/2017 5:41 PM) * Vitamin B12 and Folate (07/19/2017 6:43 PM) Component Value Ref Range Vitamin B12 >2000 (H) 213 - 816 pg/mL Folate 17.3 >=7.0 ng/mL Specimen Performing Laboratory Blood [address] [address] * Iron, TIBC, % sat. (without ferritin) (07/19/2017 6:43 PM) Component Value Ref Range Iron 73 40 - 160 ug/dL TIBC 256 250 - 450 ug/dL Iron % Saturation 29 20 - 55 % Specimen Performing Laboratory Blood [address] [address] * Direct AHG (IZABELLA)/Direct Janneth (07/19/2017 6:43 PM) Component Value Ref Range Direct AHG-IGG NEGATIVE Direct AHG-C3B, C3D NEGATVIE Specimen Performing Laboratory Blood [address] [address] * Protein electrophoresis, serum (07/19/2017 6:43 PM) [...] Pathologist: Comment: Test performed and interpreted by [facility] [place] [facility]. Protein, Total 5.3 (L)Comment: RR: 6.1-8.1 g/dL 6.0 - 8.5 gm/dL Specimen Performing Laboratory Blood [address] [address] * Ferritin (07/19/2017 6:43 PM) Component Value Ref Range Ferritin 1207 (H) 5 - 275 ng/mL Specimen Performing Laboratory Blood [address] [address] * NM lung scan (V/Q) (07/18/2017 4:45 PM) Specimen Performing Laboratory RIS Narrative FINAL REPORT PROCEDURE: V/Q LUNG SCAN CPT CODE: 08048 INDICATION: Dyspnea, tachycardia PROTOCOL: 10.9 mCi [id number] [...] MD Report Verified Date/Time:07/18/2017 17:18:45 Reading Location: [address] Reading Room Procedure Note Interface, External Ris In - 07/18/2017 5:20 PM CDT FINAL REPORT PROCEDURE: V/Q LUNG SCAN CPT CODE: 98507 INDICATION: Dyspnea, tachycardia PROTOCOL: 10.9 mCi of [...] Report Verified Date/Time: 07/18/2017 17:18:45 Reading Location: [facility] [address] [facility] [address] Reading Room * Urine culture (07/18/2017 6:55 AM) Component Value Ref Range Result >100,000 col/mL skin adria Specimen Performing Laboratory Urine - Urine, Voided [address] [address] * Blood culture (07/17/2017 11:27 PM) Only the most recent of 2 results within the time period is included. Component Value Ref Range Result No growth in 5 days Specimen Performing Laboratory Blood - Arm, [place] [address] * XR chest PA or AP 1 [...] MD Report Verified Date/Time:07/06/2017 20:38:20 Reading Location: [address] Reading Room Procedure Note Interface, External [...] Report Verified Date/Time: 07/06/2017 20:38:20 Reading Location: [address] Reading Room * CT spine lumbar without IV contrast (07/06/2017 8:32 PM) Specimen Performing Laboratory [place] RIS Narrative FINAL REPORT CT, SPINE, LUMBAR, [...] MD Report Verified Date/Time:07/06/2017 20:43:51 Reading Location: [facility] C013Y CT Body Reading Room Procedure Note [...] Report Verified Date/Time: 07/06/2017 20:43:51 Reading Location: [facility] B1 C013Y CT Body Reading Room * Urinalysis w/Microscopic + Reflex to Culture - Clear Catch (07/06/2017 7:49 PM) Component Value Ref Range Color, UA Yellow Clarity, UA Clear Specific [place], UA 1.025 1.001 - 1.035 pH, UA [...] Specimen Performing Laboratory Urine - Urine, Voided [facility], [facility], [facility] [address] [place] [address] * ED ECG Interpretation (06/09/2017 10:28 AM) [...] inversion in lead(s) aVL, V1 and V2. [place] is left. Other findings: no other findings. [...] - 4.3 ng/mL Specimen Performing Laboratory Blood [facility], [facility] [address] [place] [address] * D-dimer, quantitative (06/09/2017 8:46 AM) Component Value Ref Range D-Dimer, Quant 0.70 (H) <0.50 MG/L FEU Specimen Performing Laboratory Blood [facility], [facility] [address] [place] [address] Narrative REGARDING D-DIMER RESULTS: Results of this [...] U/L Specimen Performing Laboratory Blood - Arm, [place] [id number] * Hepatic function panel (11/21/2016 5:21 AM) [...] U/L Specimen Performing Laboratory Blood - Arm, [place] [address] * Troponin I (11/20/2016 12:23 PM) Component Value Ref Range Troponin I 0.05 (H) 0.00 - 0.03 ng/mL Specimen [place] [address] Narrative Effective 08/03/2014: Reference Range Change New: [...] 1.4 % Specimen Performing Laboratory Blood [facility] [address] [address] Narrative Effective 08/03/2014: CK-MB Reference Range Change New: 0.0-6.6Previous: 0.0-4.9 CK-MB Reference Range: <6.7Normal 6.7-10.0Borderline >10.0 Abnormal * US abdomen complete (11/20/2016 7:08 AM) Specimen Performing Laboratory [place] Narrative FINAL REPORT Abdominal ultrasonography, 11/20/2016 COMPARISON: [...] MD Report Verified Date/Time:11/20/2016 09:42:41 Reading Location: [facility] P006J Ultrasound Reading Room Procedure Note Interface, External Ris In - 11/20/2016 9:44 AM WEBFED OFFSET PRESS OPERATOR FINAL REPORT Abdominal ultrasonography, 11/20/2016 COMPARISON: None [...] Report Verified Date/Time: 11/20/2016 09:42:41 Reading Location: [facility] B1 P006J Ultrasound Reading Room after 11/17/2016
[2017-11-18] MEDS ORDERED: INSULIN REGULAR, HUMAN 100 UNIT/1 ML 3ML VIAL SQ SCH (16:30)
[2017-11-18] MEDS ORDERED: DEXTROSE 50% SYRINGE 50 ML IV PRN (16:30)
[2017-11-18 20:39] VITALS: BP 161/78
[2017-11-18 21:00] VITALS: BP 161/78
[2017-11-18] MEDS: INSULIN REGULAR, HUMAN 100 UNIT/1 ML 3ML VIAL SQ SCH (21:00)
[2017-11-18] MEDS ORDERED: MAGNESIUM HYDROXIDE 30 ML UDC PO PRN (23:45)
[2017-11-18] MEDS ORDERED: ALBUTEROL/IPRATROPIUM 3 ML NEB NEB PRN (23:45)
[2017-11-18] MEDS: CLINDAMYCIN 600MG/D5W 50ML 50 ML IV SCH (23:59)
[2017-11-19] VITALS: BP 141/67
[2017-11-19] MEDS ORDERED: PROAIR HFA INH8.5 GM INH (00:02)
[2017-11-19] MEDS ORDERED: NOVOLIN N100 UNIT/1 SQ (00:02)
[2017-11-19] MEDS ORDERED: TRAZODONE HCL50 MG PO (00:02)
[2017-11-19] MEDS ORDERED: HYDROCHLOROTHIA25 MG PO (00:02)
[2017-11-19] MEDS ORDERED: ASPIR 8181 MG PO (00:02)
[2017-11-19] MEDS ORDERED: VITAMIN B-121000 MC1 IM (00:02)
[2017-11-19] MEDS ORDERED: KETOROLAC60 MG/2 ML IV (00:02)
[2017-11-19] MEDS ORDERED: NORCO 10-325 T1 EACH PO (00:02)
[2017-11-19] MEDS ORDERED: ADVAIR HFA 230-12 GM INH (00:02)
[2017-11-19] MEDS ORDERED: GLIMEPIRIDE2 MG PO (00:02)
[2017-11-19] MEDS ORDERED: ATORVASTATIN CA10 MG PO (00:02)
[2017-11-19] MEDS ORDERED: CARVEDILOL12.5 MG PO (00:02)
[2017-11-19] MEDS ORDERED: LOSARTAN POTASS25 MG PO (00:02)
[2017-11-19] MEDS ORDERED: AMLODIPINE BESY10 MG PO (00:02)
[2017-11-19] MEDS ORDERED: LEVOTHYROXINE50 MCG PO (00:02)
[2017-11-19] MEDS ORDERED: PREDNISONE5 MG PO (00:02)
[2017-11-19] MEDS ORDERED: IPRATROPIU0.2 MG/1 M INH (00:02)
[2017-11-19] MEDS ORDERED: POTASSIUM CHLO10 ME1 PO (00:02)
[2017-11-19] MEDS ORDERED: FUROSEMIDE40 MG PO (00:02)
[2017-11-19] MEDS ORDERED: PROMETHAZINE HC25 M1 PO (00:02)
[2017-11-19] MEDS ORDERED: BUDESONIDE0.5 MG/2 M NEB (00:02)
[2017-11-19] MEDS ORDERED: GABAPENTIN400 MG PO (00:02)
[2017-11-19] MEDS ORDERED: CALCITRIOL0.25 MCG PO (00:02)
[2017-11-19] MEDS ORDERED: MYCOPHENOLATE250 MG PO (00:02)
[2017-11-19] MEDS ORDERED: TESSALON PERLE100 MG PO (00:02)
[2017-11-19] MEDS ORDERED: HYDROXYCHLOROQ200 MG PO (00:02)
--- NOTE | 2017-11-19 00:25 | Diagnostic Imaging Report ---
EXAMINATION: CHEST SINGLE (PORTABLE) INDICATION: COPD. COMPARISON: None FINDINGS: TUBES and LINES: None. LUNGS: Lungs are not well inflated. There are bibasilar atelectasis. There is no evidence of pneumonia or pulmonary edema. PLEURA: No pleural effusion or pneumothorax. HEART AND MEDIASTINUM: The cardiomediastinal silhouette is difficult to assess due to patient's body habitus. BONES AND SOFT TISSUES: No acute osseous lesion. Soft tissues are unremarkable. UPPER ABDOMEN: No free air under the diaphragm. IMPRESSION: No acute thoracic abnormality. Signed by: Dr. Jose E Cummings M.D. on 11/19/2017 12:22 AM
[2017-11-19 01:05] LABS: ABG PCO2 54 mmHg (41-51)
[2017-11-19 01:06] LABS: ABG HCO3 27 mmol/L (23-28); ABG PO2 46 mmHg (80-105)
[2017-11-19] MEDS: SODIUM CHLORIDE 0.9% 1000ML 1,000 ML IV SCH (02:07)
[2017-11-19] MEDS: MORPHINE SULFATE 2 MG/ML SYR IV PRN ×3 (02:59→12:24)
[2017-11-19 04:00] VITALS: BP 146/67
[2017-11-19] MEDS: CLINDAMYCIN 600MG/D5W 50ML 50 ML IV SCH ×3 (05:51→17:50)
[2017-11-19] MEDS ORDERED: MUPIROCIN 2% OINT 22 GM TUBE ONE (07:08)
[2017-11-19] MEDS ORDERED: BUPIVACAINE HCL 0.5% INJ 30 ML VIAL INJ ONE ×2 (07:08→07:55)
[2017-11-19 07:10] LABS: BASOPHILS % 0.4 % (0.0-1.0); EOSINOPHILS # (AUTO) 0.1 (0.0-0.4); EOSINOPHILS % 1.3 % (0.0-6.0); HEMATOCRIT 32.5 % (38.2-49.6); HEMOGLOBIN 9.4 g/dL (14.0-18.0); LYMPHOCYTES # (AUTO) 1.6 (1.0-3.2); MEAN CORPUSCULAR HGB CONC 28.9 g/dL (31-35); MONOCYTES % 10.5 % (4.4-11.3); NEUTROPHILS # (AUTO) 6.4 (2.1-6.9); NEUTROPHILS % 70.1 % (38.7-80.0); PLATELET COUNT 241 x10e3/uL (140-360); RED BLOOD COUNT 3.61 x10e6/uL (4.3-5.7); RED CELL DISTRIBUTION WIDTH 14.8 % (11.7-14.4)
[2017-11-19] MEDS: [UNRECOGNIZED DRUG - OTHER] IH SCH ×2 (07:20→19:35)
[2017-11-19] MEDS: SALMETEROL IH SCH ×2 (07:20→19:35)
[2017-11-19 07:23] LABS: ANION GAP 15.8 mmol/L (8-16); BLOOD UREA NITROGEN 18 mg/dL (7-26); BUN/CREATININE RATIO 16 (6-25); CALCIUM 9.4 mg/dL (8.4-10.2); CARBON DIOXIDE 23 mmol/L (22-29); CHLORIDE 107 mmol/L (98-107); CREATININE, SERUM 1.16 mg/dL (0.72-1.25); EST GLOMERULAR FILTRATION RATE > 60 ML/MIN (60-); GLUCOSE 105 mg/dL (74-118); POTASSIUM 3.8 mmol/L (3.5-5.1); SODIUM 142 mmol/L (136-145)
[2017-11-19] MEDS: INSULIN REGULAR, HUMAN 100 UNIT/1 ML 3ML VIAL SQ SCH ×4 (07:30→21:00)
[2017-11-19] MEDS ORDERED: LIDOCAINE HCL 1% 30ML-PF VIAL ONE (07:55)
[2017-11-19] MEDS: DOCUSATE SODIUM 100 MG CAP PO SCH ×3 (09:00→20:45)
[2017-11-19 09:34] VITALS: BP 133/65
--- NOTE | 2017-11-19 10:34 | Operative Report ---
DATE OF PROCEDURE: NO DICTATION, LENGTH 13 SECONDS. Job#: [id number]
[2017-11-19] MEDS ORDERED: SALMETEROL IH SCH (11:00)
[2017-11-19] MEDS ORDERED: [UNRECOGNIZED DRUG - OTHER] IH SCH (11:00)
--- NOTE | 2017-11-19 11:34 | Operative Report ---
DATE OF PROCEDURE: November 19, 2017 PREOPERATIVE DIAGNOSIS: Soft-tissue infection, right long finger, possible septic arthritis. POSTOPERATIVE DIAGNOSIS: Septic arthritis of right long finger distal interphalangeal joint. PROCEDURES 1. Incision and drainage of extensor tendon sheath, right long finger. 2. Arthrotomy and drainage of right long finger distal interphalangeal joint. ANESTHESIA: MAC sedation/local. HISTORY: Patient is a 72-year-old male who was admitted last night with purulent drainage from the DIP joint of the right long finger. The risks, benefits and alternatives of treatment were discussed with the patient and the family. He is prepared to undergo the procedures outlined. DETAILS OF PROCEDURE: Patient was marked preoperatively in the holding area. He was brought to the operating theater. After the induction of adequate IV sedation, a digital block was placed around the base of the right long finger. The block consisted of a 50:50 mixture of 1% Xylocaine plain and 1/2 percent Marcaine plain. A total of 8 mL was used for the block. After completing the block, a time out was performed. Then the patient was prepped and draped in a supine position. The procedure was begun by incising on the dorsal soft tissues just proximal to the eponychial fold. Copious amount of purulent exudate was encountered. This was cultured for both aerobic and anaerobic studies. The infection appeared to continue all the way through the extensor tendon mechanism with its insertion onto the distal phalanx. This was completely debrided, and this allowed egress into the DIP joint, which was noted to have purulent infected exudate within it as well. After all the devitalized tissue had been sharply debrided, the joint was irrigated copiously with an antibiotic-containing solution. It was packed, and then the soft tissues were allowed to go over the joint space. It was packed with 1/4-inch Nu Gauze packing. Bactroban ointment and a sterile dressing were applied. Patient tolerated the procedure well and was brought to the recovery room in satisfactory condition and then returned back to his hospital room for further care and treatment. Job#: [id number]
[2017-11-19 11:43] LABS: RBC MORPHOLOGY COMMENT ABNORMAL
[2017-11-19 11:45] LABS: ANISOCYTOSIS MODE; HOWELL-JOLLY BODIES FEW; HYPOCHROMASIA SLIGHT; PLATELET ESTIMATE ADEQUATE; PLATELET MORPHOLOGY COMMENT FEW LARGE; POIKILOCYTOSIS SLIGHT; TEAR DROP CELLS FEW
[2017-11-19 12:08] VITALS: BP 166/66
[2017-11-19] MEDS: AMLODIPINE BESYLATE 10 MG TAB PO SCH (12:24)
[2017-11-19] MEDS: PREDNISONE 5 MG TAB PO SCH (12:24)
[2017-11-19] MEDS: LOSARTAN POTASSIUM 25 MG TAB PO SCH (12:24)
[2017-11-19] MEDS: CARVEDILOL 12.5 MG TAB PO SCH ×2 (12:24→16:14)
[2017-11-19] MEDS: HYDROCHLOROTHIAZIDE 25 MG TAB PO SCH (12:24)
--- NOTE | 2017-11-19 12:47 | Progress Note ---
DATE: November 19, 2017 PULMONARY MEDICINE PROGRESS NOTE SUBJECTIVE: Mr. Mena was seen and examined at bedside. He continues to have very guarded and decompensated state that is mostly asymptomatic. He did go for his operative surgical debridement of the finger. However, this was only done with local anesthesia given severity of his baseline status. Currently 3 liters per minute of oxygen now. He was on BiPAP earlier. REVIEW OF SYSTEMS: Includes no bleeding, no double vision. OBJECTIVE VITAL SIGNS: Afebrile. Vital signs noted per electronic record. GENERALLY: No acute distress, alert and calm. HEENT: Normocephalic, atraumatic. NECK: Supple. Throat midline. LUNGS: Bilateral air entry, limited auscultation, limited. No wheezing. CARDIOVASCULAR: S1 and S2. No murmurs, rubs or gallops. ABDOMINAL: Soft, nontender. EXTREMITIES: No clubbing, no cyanosis. There is very small edema of the arms. INTEGUMENT: No rash. No purpura. LABS: Potassium 3.8, BUN 18, creatinine 1.2. White count 9, hematocrit 32, platelets 241. IMPRESSION AND PLAN 1. Acute respiratory failure, hypercapnic, hypoxic. 2. Suspect chronic respiratory failure, multifactorial. 3. Obstructive sleep apnea. 4. Chronic obstructive pulmonary disease reported. 5. Interstitial lung disease, suspect cellular variant given his medication profile. 6. Significant obesity, possible obesity-hypoventilation syndrome. 7. 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 8. Admit for cellulitis and abscess of right hand. 9. Debility, wheelchair-bound status. 10. History of previous above-knee amputations, bilateral. 11. History of previous pulmonary embolism prior to above-knee amputations. Continue postoperative care. Will start the patient on some DVT prophylaxis. Follow up his pulmonary status. Intermittent BiPAP will be needed for now. I recommend outpatient noninvasive ventilator for the patient given he is at baseline with type 1 and type 2 respiratory failure. However, will leave it for his outside appliance tester to consider this. Patient needs to avoid medicines that can suppress his breathing. Will follow along closely. Immunosuppressants were restarted, and we will follow these. I believe CellCept is currently at half of his home dose. Will follow along closely. Continue IV antibiotics and other care for infection. Job#: [id number]
[2017-11-19] MEDS ORDERED: IPRATROPIUM BROMIDE 0.02% 2.5 ML NEB INH SCH (13:00)
--- NOTE | 2017-11-19 13:07 | Consultation ---
DATE OF CONSULTATION: November 18, 2017 PULMONARY/CRITICAL MEDICINE CONSULT REFERRING PHYSICIAN: Dr[facility] Bergman. [facility] HISTORY: Mr. Mena is a pleasant 72-year-old gentleman with preoperative pulmonary evaluation. Patient with longstanding history of chronic obstructive pulmonary disease. He is not on home oxygen. He does not have chronic bronchitis features. However, he was told by his head paper tester that he carries this issue. He uses albuterol nebs twice a day. He is on no other inhalers. No nebulized treatments, although the [facility] record which I reviewed in detail demonstrates Advair, budesonide nebulizer, and ipratropium nebulizer. Patient with history of pulmonary emboli in 2011 when he still had his legs and this was treated. No pulmonary emboli or DVT since. He had bilateral AKAs. Patient with rheumatoid arthritis since 2006. He has interstitial lung disease. At this time, he is on Plaquenil 200 mg b.i.d., prednisone 10 mg daily, and mycophenolate 1000 mg twice a day. He has not had any adjustments recently in these medicines that he knows of. He does not smoke anymore. Patient was admitted today with right hand cellulitis with abscess and he is preoperative. Furthermore, he has obstructive sleep apnea and he is on "very high pressures." He does not know the pressure. Rinku Soriano helps administer the complex problems and I reviewed his records. PAST MEDICAL HISTORY: Peripheral vascular disease, status post bilateral AKAs in 2009 and 2011, obstructive sleep apnea, hypertension, gout, CKD, GI AVMs, anemia, hypothyroid disorder, hyperlipidemia, peripheral neuropathy, pulmonary nodules, ? lupus, obesity, COPD, and diabetes. MEDICATIONS: Medication list reviewed per the chart record. He is additionally on 1. Lasix 20 mg a day in addition to the others. 2. For pain, he is on hydrocodone. ALLERGIES: NO KNOWN DRUG ALLERGIES. SOCIAL HISTORY: No drinking, no drugs. He smoked from age 17 to 47, three-quarters pack per day. He works as a marketing development specialist and actively works. He used to use a walker due to pain prior to the AKAs and now he is wheelchair bound. FAMILY HISTORY: Noncontributory. REVIEW OF SYSTEMS GENERAL: No weight changes. OPHTHALMOLOGIC: No double vision. ENT: Controlled thyroid as far as he knows. PULMONARY: No asthma. IMMUNOLOGIC: No allergies. CARDIAC: No heart attacks. GI: There is mild constipation. Had a bowel movement 2 days ago. : No blood in the urine. DERMATOLOGIC: No rashes. MUSCULOSKELETAL: Almost all of his joints hurt, he says. NEUROLOGIC: No seizures. PSYCHIATRIC: No depression right now. Active. OBJECTIVE VITALS: Afebrile, vital signs noted per the chart record. GENERAL: No acute distress, alert and calm in bed. HEENT: Normocephalic and atraumatic. NECK: Supple. Throat midline. LUNGS: Bilateral air entry is limited. Decreased breath sounds, otherwise clear. CARDIOVASCULAR: S1 and S2. No murmurs, rubs, or gallops. ABDOMEN: Soft and nontender. Obese. EXTREMITIES: No clubbing. No cyanosis. Bilateral AKAs. INTEGUMENT: No rash, no purpura. The hand is affected mostly at the distal part of finger on right hand. RADIOGRAPHY: No definite osteomyelitis per right hand x-ray. Chest x-ray is pending. IMPRESSIONS 1. Interstitial lung disease per report. Suspect cellular disease given his active medications. 2. Reported rheumatoid arthritis. 3. Reported lupus. 4. Obstructive sleep apnea. 5. Obesity. 6. Chronic obstructive pulmonary disease, former smoker. 7. Chronic kidney disease. 8. History of pulmonary embolism, 2011, prior to bilateral above-knee amputations. 9. Constipation, active. 10. possible pulmonary hypertension 11. Admit with right hand cellulitis/abscess. 12. Debility, wheelchair bound status. 13. Peripheral vascular disease, hypertension, gout, CKD, AVMs, anemia, hypothyroid, hyperlipidemia, peripheral neuropathy, and diabetes. 14. Pulmonary nodules per report. Patient tentatively for surgery tomorrow. Will check screening arterial blood gas analysis. Patient will have screening chest x-ray. Patient should have cautions to avoid high ventilator pressures or high airway pressures on delivery of breaths with anesthesia. Patient will also need treatment for constipation. Medicines can be held temporarily including prednisone, Plaquenil, mycophenolate, but there will be consideration to resume these soon. Ensure kidneys remain stable perioperative. Continue bronchodilators. Other treatment per infectious disease expert of the cellulitis and abscess. DVT prophylaxis will be considered based on complexity of the operation and depth of the infection. Thank you very much, Dr. Bergman and Dr. Soriano for allowing me the chance to participate in the care of Mr. Mena. Do not hesitate to contact me if I could help in anyway. Job#: [id number] DARVIN PERDUE
[2017-11-19] MEDS: HYDROCODONE/APAP 10MG-325MG TAB PO PRN (14:17)
--- NOTE | 2017-11-19 15:07 | Consultation ---
DATE OF CONSULTATION: November 18, 2017 CONSULTED BY: ER for hand surgery. CHIEF COMPLAINT: Right long finger infection. HISTORY OF PRESENT ILLNESS: The patient is a 72-year-old male who is status post bilateral AKAs for severe peripheral vascular disease. The patient is a fair historian. States that he developed an infectious process approximately 7-10 days ago around the dorsal aspect of the right long finger. He states that after the infectious process had been present for a while, he was seen by a primary medical doctor who started the patient on oral antibiotics. However, despite the oral antibiotics the infectious process persisted, and the patient then came to the emergency room today. Consultation is now requested by the hand surgery team. PHYSICAL EXAMINATION EXTREMITIES: There was purulent drainage coming from an open wound on the dorsal aspect of the right long finger directly over the DIP joint. It appears to be subcutaneous spread of the abscess and the purulence. There is swelling and erythema that extends proximally to the PIP joint. There does not appear to be any extension of the process onto the flexor surface of the finger. Radiographs do not show acute osteomyelitis. IMPRESSION: Infection, right long finger, possible septic arthritis. PLAN: The patient has been eating up to the point of the consult. He will be admitted and kept n.p.o. overnight. In the morning, will undergo an exploration and drainage procedure. Thank you for allowing me to participate in the care of your patient. Job#: [id number] SUIM
[2017-11-19] MEDS ORDERED: HYDROMORPHONE 1MG/1ML INJ IV PRN (15:30)
[2017-11-19] MEDS ORDERED: HYDROMORPHONE 1MG/1ML INJ IV STA (15:57)
[2017-11-19] MEDS ORDERED: MIDAZOLAM HCL 2 MG/2 ML VIAL ONE (16:02)
[2017-11-19] MEDS ORDERED: FENTANYL CITRATE/PF 100MCG/2 ML INJ ONE (16:02)
[2017-11-19] MEDS ORDERED: KETAMINE HCL INJ 50 MG/ML 10 ML VIAL ONE (16:02)
[2017-11-19 16:07] VITALS: BP 158/88
[2017-11-19] MEDS: MYCOPHENOLATE MOFETIL 250 MG CAP PO SCH (16:14)
[2017-11-19] MEDS: HYDROXYCHLOROQUINE SULFATE 200 MG TAB PO SCH (16:14)
--- NOTE | 2017-11-19 16:54 | Consultation ---
DATE OF CONSULTATION: November 19, 2017 REASON FOR CONSULTATION: Infection of the finger. HISTORY OF PRESENT ILLNESS: Patient is a 72-year-old male, morbidly obese patient. The patient was admitted to this hospital on November with right hand infection of the middle finger. It started with a boil getting progressively worse. Patient was admitted. He was seen by surgery, Dr. Justice, who performed surgery on him today. Infection disease was asked to help with antibiotic. The patient is currently lying in bed comfortably complaining of pain in his middle finger. He apparently has history of COPD, history of obesity, history of rheumatoid arthritis diagnosed in 2006, peripheral vascular disease, status post AKA in 2009 and 2011. Obstructive sleep apnea, hypertension, gout, chronic kidney disease, anemia, AV malformation, hypothyroidism, hyperlipidemia, peripheral neuropathy, pulmonary nodules, COPD and diabetes. MEDICATIONS: He has been on Lasix and pain medication. ALLERGIES: NKA. SOCIAL HISTORY: Does not smoke, no drug abuse or alcohol abuse. FAMILY HISTORY: Hypertension. LABORATORY DATA: White count 9.1, hemoglobin 9.4, sodium 142, potassium 3.8, creatinine 0.16. Cultures still pending. PHYSICAL EXAMINATION: GENERAL: He is currently alert, oriented and does not seem to be in acute distress. VITALS: Stable, currently afebrile. HEENT: Not icteric. NECK: Supple. CHEST: Clear. HEART: No murmur. ABDOMEN: Soft, obese. EXTREMITIES: On the right index finger, he does have dressing and underwent incision and drainage of the extensor tendon sheath of the right long finger. Had arthrotomy in the range of the right long finger, distal interphalangeal joint. IMPRESSION: 1. Infected finger. Infected joint in a patient who is morbidly obese. 2. Chronic kidney disease. 3. Interstitial lung disease. 4. Rheumatoid arthritis. 5. Obstructive sleep apnea. 6. Obesity. 7. Arteriovenous malformation. 8. Anemia. RECOMMENDATIONS: Will need at least 3 weeks of IV antibiotics. Await culture and sensitivity. Continue with clindamycin for now. Will follow. Job#: [id number]
[2017-11-19] MEDS ORDERED: CARVEDILOL 12.5 MG TAB PO SCH (17:00)
[2017-11-19] MEDS: IPRATROPIUM BROMIDE 0.02% 2.5 ML NEB INH SCH (19:35)
[2017-11-19] MEDS ORDERED: CLINDAMYCIN 600MG/D5W 50ML 50 ML IV SCH (20:00)
[2017-11-19 20:25] VITALS: BP 135/60
--- NOTE | 2017-11-19 20:25 | Diagnostic Imaging Report ---
A single frontal view of the chest. HISTORY: PICC line placement COMPARISON: None available. DISCUSSION: Portable technique, limits sensitivity of the exam. Soft tissue attenuation partially limits sensitivity of the exam. Multiple artifacts. Tubes/Lines: Status post placement of a right upper extremity PICC line placement, the tip the catheter projects at the region of the superior vena cava. Lungs and pleura: Low lung volumes result in bibasilar vascular crowding, accentuation of the pulmonary interstitial markings, central pulmonary vasculature, and the cardiac silhouette. Allowing for these limitations, the findings are as follows: Bibasilar atelectasis. No definite pleural effusion or pneumothorax is identified. Heart and mediastinum: The cardiac silhouette is predominantly obscured. Prominent central pulmonary vasculature. Bones: No acute osseous lesion is identified, given this limited exam. IMPRESSION: Status post right upper extremity PICC line placement. Signed by: Dr. Ciro Byrd D.O., M.M.M. on 11/19/2017 8:21 PM
[2017-11-19] MEDS: TRAZODONE HCL 50 MG TAB PO SCH (20:45)
[2017-11-19] MEDS: ATORVASTATIN 10 MG TAB PO SCH (20:45)
[2017-11-19] MEDS: HEPARIN SOD (PORCINE) 5,000 UNIT/ML VIAL SC SCH (21:00)
[2017-11-20] VITALS (7 sets, daily range): BP systolic 130–161; BP diastolic 58–80
[2017-11-20] MEDS: VANCOMYCIN 1GM/NS 250 ML 250 ML IV SCH ×2 (00:05→11:30)
[2017-11-20] MEDS ORDERED: SODIUM CHLORIDE 0.9% 250ML 250 ML ONE (02:19)
[2017-11-20] MEDS: ONDANSETRON HCL INJ 2 MG/ML VIAL IV PRN ×2 (02:58→07:55)
[2017-11-20] MEDS: HYDROMORPHONE 1MG/1ML INJ IV PRN ×2 (02:58→07:55)
[2017-11-20] MEDS: CLINDAMYCIN 600MG/D5W 50ML 50 ML IV SCH ×2 (05:25)
[2017-11-20] MEDS: LEVOTHYROXINE SODIUM 125 MCG TAB PO SCH (05:25)
[2017-11-20 06:59] LABS: BASOPHILS % 0.3 % (0.0-1.0); EOSINOPHILS # (AUTO) 0.1 (0.0-0.4); HEMATOCRIT 29.8 % (38.2-49.6); HEMOGLOBIN 8.7 g/dL (14.0-18.0); LYMPHOCYTES # (AUTO) 1.6 (1.0-3.2); LYMPHOCYTES % 16.2 % (18.0-39.1); MEAN CORPUSCULAR HEMOGLOBIN 26.5 pg (28-32); MEAN CORPUSCULAR HGB CONC 29.2 g/dL (31-35); MEAN CORPUSCULAR VOLUME 90.9 fL (81-99); MONOCYTES % 10.7 % (4.4-11.3); NEUTROPHILS # (AUTO) 6.8 (2.1-6.9); NEUTROPHILS % 70.9 % (38.7-80.0); PLATELET COUNT 215 x10e3/uL (140-360); RED BLOOD COUNT 3.28 x10e6/uL (4.3-5.7)
[2017-11-20] MEDS: IPRATROPIUM BROMIDE 0.02% 2.5 ML NEB INH SCH ×4 (07:00→19:00)
[2017-11-20 07:31] LABS: ANION GAP 13.9 mmol/L (8-16); BLOOD UREA NITROGEN 12 mg/dL (7-26); BUN/CREATININE RATIO 12 (6-25); CALCIUM 9.6 mg/dL (8.4-10.2); CARBON DIOXIDE 26 mmol/L (22-29); CHLORIDE 104 mmol/L (98-107); CREATININE, SERUM 1.02 mg/dL (0.72-1.25); EST GLOMERULAR FILTRATION RATE > 60 ML/MIN (60-); GLUCOSE 106 mg/dL (74-118); POTASSIUM 3.9 mmol/L (3.5-5.1); SODIUM 140 mmol/L (136-145)
[2017-11-20] MEDS: DOCUSATE SODIUM 100 MG CAP PO SCH ×3 (08:07→20:11)
[2017-11-20] MEDS: ASPIRIN 81 MG CHEW TAB PO SCH (08:07)
[2017-11-20] MEDS: CARVEDILOL 12.5 MG TAB PO SCH ×2 (08:07→17:10)
[2017-11-20] MEDS: LOSARTAN POTASSIUM 25 MG TAB PO SCH (08:08)
[2017-11-20] MEDS: HYDROCHLOROTHIAZIDE 25 MG TAB PO SCH (08:08)
[2017-11-20] MEDS: FUROSEMIDE 20 MG TAB PO SCH (08:08)
[2017-11-20] MEDS: AMLODIPINE BESYLATE 10 MG TAB PO SCH (08:08)
[2017-11-20] MEDS: CALCITRIOL 0.25 MCG CAP PO SCH (08:08)
[2017-11-20] MEDS: PREDNISONE 5 MG TAB PO SCH (08:08)
[2017-11-20] MEDS: INSULIN REGULAR, HUMAN 100 UNIT/1 ML 3ML VIAL SQ SCH ×4 (08:54→20:11)
[2017-11-20] MEDS: HYDROXYCHLOROQUINE SULFATE 200 MG TAB PO SCH ×2 (08:55→17:10)
[2017-11-20] MEDS: HEPARIN SOD (PORCINE) 5,000 UNIT/ML VIAL SC SCH ×2 (08:55→21:10)
[2017-11-20] MEDS: MYCOPHENOLATE MOFETIL 250 MG CAP PO SCH ×2 (08:55→15:37)
[2017-11-20] MEDS: [UNRECOGNIZED DRUG - OTHER] IH SCH ×2 (09:00→19:30)
[2017-11-20] MEDS ORDERED: PREDNISONE 5 MG TAB PO SCH ×2 (09:00)
[2017-11-20] MEDS ORDERED: LEVOTHYROXINE SODIUM 50 MCG TAB PO SCH (09:00)
[2017-11-20] MEDS ORDERED: LOSARTAN POTASSIUM 25 MG TAB PO SCH (09:00)
[2017-11-20] MEDS ORDERED: CALCITRIOL 0.25 MCG CAP PO SCH (09:00)
[2017-11-20] MEDS: SALMETEROL IH SCH ×2 (09:00→19:30)
[2017-11-20] MEDS ORDERED: FUROSEMIDE 40 MG TAB PO SCH (09:00)
[2017-11-20] MEDS ORDERED: AMLODIPINE BESYLATE 10 MG TAB PO SCH (09:00)
[2017-11-20] MEDS ORDERED: HYDROCHLOROTHIAZIDE 25 MG TAB PO SCH (09:00)
[2017-11-20] MEDS: MUPIROCIN 2% OINT 22 GM TUBE TOP SCH ×2 (11:00→20:10)
[2017-11-20] MEDS: HYDROCODONE/APAP 10MG-325MG TAB PO PRN (11:15)
--- NOTE | 2017-11-20 12:28 | Progress Note ---
DATE: November 20, 2017 PULMONARY MEDICINE PROGRESS NOTE SUBJECTIVE: The patient was seen and examined at bedside. He remains calm in bed. He is performing wound care with soaks and iodine. Patient remains with any outward respiratory distress. He is on 2 L per minute by nasal cannula with 100% oxygen saturation. REVIEW OF SYSTEMS: No bleeding, no rash. OBJECTIVE VITAL SIGNS: Afebrile. Vital signs noted per electronic record. GENERAL: No acute distress, calm in bed. HEENT: Normocephalic, atraumatic. NECK: Supple. Throat midline. LUNGS: Bilateral air entry, decreased breath sounds throughout, no outward wheezes nor rhonchi. CARDIOVASCULAR: S1 and S2. No murmurs, rubs or gallops. ABDOMEN: Soft, nontender. EXTREMITIES: No clubbing, no cyanosis. There is no edema. INTEGUMENT: No rash. No purpura. The right long finger still has the postoperative wound. LABS: 3.9 potassium, 12 BUN, 1.0 creatinine, 9.6 white count, 30 hematocrit. IMPRESSION AND PLAN 1. Severe right long finger infection, cellulitis with abscess, rule out osteomyelitis. 2. Staphylococcal growth on preliminary wound culture. 3. Immunosuppressed state. 4. Reported interstitial lung disease, probably cellular given the medicine profile. 5. Possible pulmonary hypertension. 6. Chronic obstructive pulmonary disease reported without exacerbation. 7. Obesity, possible obesity-hypoventilation syndrome. 8. Obstructive sleep apnea. 9. Active acute hypoxic and hypercapnic respiratory failure even at rest. 10. Admit with right long finger cellulitis and abscess postoperative, status post debridement. Continue close followup. I discussed plans with other doctors here. Based on disposition, will have to prepare the patient given the active respiratory failure. Consideration per Dr. Soriano if he wants long-term chronic ventilator or if he is happy with what appears to be CPAP 19/20 cm at home possibly per the 's report. The patient continues with care to the finger as per other physicians. Will follow up and ensure maintenance of the other pulmonary conditions. Job#: [id number]
[2017-11-20] MEDS ORDERED: HYDROCODONE/APAP 10MG-325MG TAB PO SCH ×2 (16:00)
[2017-11-20] MEDS: TRAZODONE HCL 50 MG TAB PO SCH (20:11)
[2017-11-20] MEDS: ATORVASTATIN 10 MG TAB PO SCH (20:11)
[2017-11-20] MEDS: HYDROCODONE/APAP 10MG-325MG TAB PO SCH (20:26)
[2017-11-21] VITALS (7 sets, daily range): BP systolic 136–160; BP diastolic 62–73
[2017-11-21] MEDS: HYDROCODONE/APAP 10MG-325MG TAB PO SCH ×6 (00:10→20:30)
[2017-11-21] MEDS: LEVOTHYROXINE SODIUM 125 MCG TAB PO SCH (06:30)
[2017-11-21] MEDS: IPRATROPIUM BROMIDE 0.02% 2.5 ML NEB INH SCH ×3 (07:21→15:00)
[2017-11-21] MEDS: SALMETEROL IH SCH ×2 (07:25→20:15)
[2017-11-21] MEDS: [UNRECOGNIZED DRUG - OTHER] IH SCH ×2 (07:25→20:15)
[2017-11-21] MEDS: INSULIN REGULAR, HUMAN 100 UNIT/1 ML 3ML VIAL SQ SCH ×4 (07:30→21:30)
[2017-11-21] MEDS: ASPIRIN 81 MG CHEW TAB PO SCH (08:45)
[2017-11-21] MEDS: DOCUSATE SODIUM 100 MG CAP PO SCH ×3 (08:45→20:30)
[2017-11-21] MEDS: MYCOPHENOLATE MOFETIL 250 MG CAP PO SCH ×2 (08:45→17:07)
[2017-11-21] MEDS: MUPIROCIN 2% OINT 22 GM TUBE TOP SCH ×2 (08:46→20:30)
[2017-11-21] MEDS: PREDNISONE 5 MG TAB PO SCH (08:46)
[2017-11-21] MEDS: CALCITRIOL 0.25 MCG CAP PO SCH (08:46)
[2017-11-21] MEDS: HYDROCHLOROTHIAZIDE 25 MG TAB PO SCH (08:46)
[2017-11-21] MEDS: HYDROXYCHLOROQUINE SULFATE 200 MG TAB PO SCH ×2 (08:46→17:07)
[2017-11-21] MEDS: CARVEDILOL 12.5 MG TAB PO SCH ×2 (08:46→17:07)
[2017-11-21] MEDS: LOSARTAN POTASSIUM 25 MG TAB PO SCH (08:46)
[2017-11-21] MEDS: HEPARIN SOD (PORCINE) 5,000 UNIT/ML VIAL SC SCH ×2 (08:46→21:30)
[2017-11-21] MEDS: FUROSEMIDE 20 MG TAB PO SCH (08:46)
[2017-11-21] MEDS: AMLODIPINE BESYLATE 10 MG TAB PO SCH (08:46)
[2017-11-21] MEDS: VANCOMYCIN 1GM/NS 250 ML 250 ML IV SCH ×2 (10:25→23:50)
--- NOTE | 2017-11-21 12:45 | Progress Note ---
DATE: November 21, 2017 PULMONARY MEDICINE PROGRESS NOTE SUBJECTIVE: Mr. Mena was seen and examined at bedside. He continues to have steady state of breathing. No respiratory distress episodes. However, he is having complication regarding wound healing. The wound cultures came back as MRSA. Reportedly, surgeon is still worried about the progress and still has not ruled out amputation of the joint may be needed. Liters in 2.5, liters out 1.8 recorded. REVIEW OF SYSTEMS: No diarrhea, no constipation. OBJECTIVE VITAL SIGNS: Afebrile. Vital signs noted per electronic record. GENERALLY: No acute distress, obese, sitting up in bed. HEENT: Normocephalic, atraumatic. NECK: Supple. Throat midline. LUNGS: Bilateral air entry, a few rare rhonchi. CARDIOVASCULAR: S1 and S2. No murmurs, rubs or gallops. ABDOMINAL: Soft, nontender. EXTREMITIES: No clubbing, no cyanosis. There is maybe trace edema to the hands. INTEGUMENT: No rash. No purpura. IMPRESSION AND PLAN 1. Admit with septic arthritis and cellulitis with abscess. 2. Postoperative state, status post initial debridement. 3. Chronic kidney disease. 4. Immunosuppressed state. 5. Interstitial lung disease, not otherwise specified. 6. Reported rheumatoid arthritis. 7. Reported lupus. 8. Obstructive sleep apnea. 9. Obesity. 10. Reported chronic obstructive pulmonary disease. 11. Obesity-hypoventilation syndrome. 12. Active acute hypoxemic and hypercapnic respiratory failure at rest. Continue current treatment at this time. Follow up his breathing status very closely. Limit medicines that may alter respiratory function for the worse. Continue his immunosuppressants for now, noting that mycophenolate is at half dose. Continue Plaquenil and prednisone. Continue BiPAP at night. Will follow along closely. Very guarded condition and fragile. Job#: [id number] EV
[2017-11-21] MEDS: HYDROMORPHONE 1MG/1ML INJ IV PRN (14:15)
[2017-11-21] MEDS: ONDANSETRON HCL INJ 2 MG/ML VIAL IV PRN (14:15)
[2017-11-21] MEDS ORDERED: LACTULOSE SYRUP 20 GM/30 ML UDC PO ONE (14:45)
[2017-11-21] MEDS ORDERED: HYDROMORPHONE 1MG/1ML INJ IV PRN (16:00)
[2017-11-21] MEDS: ATORVASTATIN 10 MG TAB PO SCH (20:30)
[2017-11-21] MEDS: TRAZODONE HCL 50 MG TAB PO SCH (20:30)
[2017-11-22] VITALS (8 sets, daily range): BP systolic 122–173; BP diastolic 64–101
[2017-11-22] MEDS: HYDROCODONE/APAP 10MG-325MG TAB PO SCH ×7 (00:40→23:54)
[2017-11-22] MEDS: VANCOMYCIN HCL 1.25 GM in SODIUM CHLORIDE 0.9% 250ML 300 ML IV SCH ×2 (01:00→10:40)
[2017-11-22] MEDS: LEVOTHYROXINE SODIUM 125 MCG TAB PO SCH (06:20)
[2017-11-22] MEDS: IPRATROPIUM BROMIDE 0.02% 2.5 ML NEB INH SCH ×4 (07:00→19:45)
[2017-11-22 07:22] LABS: BASOPHILS % 0.4 % (0.0-1.0); EOSINOPHILS # (AUTO) 0.1 (0.0-0.4); EOSINOPHILS % 1.5 % (0.0-6.0); LYMPHOCYTES # (AUTO) 1.6 (1.0-3.2); LYMPHOCYTES % 19.1 % (18.0-39.1); MEAN CORPUSCULAR HEMOGLOBIN 26.2 pg (28-32); MEAN CORPUSCULAR VOLUME 90.1 fL (81-99); MONOCYTES % 11.8 % (4.4-11.3); NEUTROPHILS # (AUTO) 5.4 (2.1-6.9); NEUTROPHILS % 64.7 % (38.7-80.0); PLATELET COUNT 243 x10e3/uL (140-360); RED BLOOD COUNT 3.44 x10e6/uL (4.3-5.7); RED CELL DISTRIBUTION WIDTH 14.6 % (11.7-14.4)
[2017-11-22] MEDS: [UNRECOGNIZED DRUG - OTHER] IH SCH ×2 (07:28→19:45)
[2017-11-22] MEDS: SALMETEROL IH SCH ×2 (07:28→19:45)
[2017-11-22] MEDS: INSULIN REGULAR, HUMAN 100 UNIT/1 ML 3ML VIAL SQ SCH ×4 (07:30→21:00)
[2017-11-22 07:47] LABS: ANION GAP 13.8 mmol/L (8-16); BLOOD UREA NITROGEN 12 mg/dL (7-26); BUN/CREATININE RATIO 12 (6-25); CALCIUM 10.1 mg/dL (8.4-10.2); CARBON DIOXIDE 29 mmol/L (22-29); CHLORIDE 101 mmol/L (98-107); CREATININE, SERUM 0.99 mg/dL (0.72-1.25); EST GLOMERULAR FILTRATION RATE > 60 ML/MIN (60-); GLUCOSE 95 mg/dL (74-118); POTASSIUM 3.8 mmol/L (3.5-5.1); SODIUM 140 mmol/L (136-145)
[2017-11-22] MEDS: DOCUSATE SODIUM 100 MG CAP PO SCH ×3 (09:23→20:57)
[2017-11-22] MEDS: LOSARTAN POTASSIUM 25 MG TAB PO SCH ×2 (09:23→17:22)
[2017-11-22] MEDS: ASPIRIN 81 MG CHEW TAB PO SCH (09:23)
[2017-11-22] MEDS: HYDROCHLOROTHIAZIDE 25 MG TAB PO SCH (09:23)
[2017-11-22] MEDS: FUROSEMIDE 20 MG TAB PO SCH (09:23)
[2017-11-22] MEDS: MYCOPHENOLATE MOFETIL 250 MG CAP PO SCH ×2 (09:23→17:22)
[2017-11-22] MEDS: CARVEDILOL 12.5 MG TAB PO SCH ×2 (09:23→17:22)
[2017-11-22] MEDS: AMLODIPINE BESYLATE 10 MG TAB PO SCH (09:24)
[2017-11-22] MEDS: MUPIROCIN 2% OINT 22 GM TUBE TOP SCH ×2 (09:24→21:03)
[2017-11-22] MEDS: HYDROXYCHLOROQUINE SULFATE 200 MG TAB PO SCH ×2 (09:24→17:23)
[2017-11-22] MEDS: CALCITRIOL 0.25 MCG CAP PO SCH (09:24)
[2017-11-22] MEDS: PREDNISONE 5 MG TAB PO SCH (09:24)
[2017-11-22] MEDS: HEPARIN SOD (PORCINE) 5,000 UNIT/ML VIAL SC SCH ×2 (09:59→21:00)
--- NOTE | 2017-11-22 13:17 | Progress Note ---
DATE: November 22, 2017 PULMONARY MEDICINE PROGRESS NOTE SUBJECTIVE: Mr. Mena was seen and examined at bedside. He continues to have slow progress. Hand surgeon did review the finger to be slightly better finally. Today is first day it is making a change for the positive. Vancomycin dose had to be increased. It is still on twice a day dosing for now. If patient has to go home, he is not sure he can do IV antibiotics and he is not sure he has people available to help him on that. No respiratory distress for now. Baseline respiratory status still present. REVIEW OF SYSTEMS: No diarrhea, no pain. OBJECTIVE VITAL SIGNS: Afebrile. Vital signs noted per electronic record. GENERALLY: In no acute distress, alert and calm. HEENT: Normocephalic, atraumatic. NECK: Supple. Throat midline. LUNGS: Bilateral air entry is decreased, limited evaluation, but rare rhonchi, mostly clear. CARDIOVASCULAR: S1 and S2. No murmurs, rubs, or gallops. ABDOMINAL: Soft, nontender. EXTREMITIES: No clubbing, no cyanosis. There is no large edema, only small edema to the hands. INTEGUMENT: No rash. No purpura. LABS: Potassium 3.8. Creatinine 0.99. White count 8.4 and hematocrit 31. IMPRESSION AND PLAN 1. Septic arthritis and cellulitis with abscess, right finger. 2. Postoperative state, status post debridement and drainage procedure. 3. Obstructive sleep apnea. 4. Interstitial lung disease, ground glass cellular disease. 5. History of chronic obstructive pulmonary disease reported per patient. 6. Immunosuppressed state. 7. 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 Continue current treatment at this time. Guarded condition regarding the hand. He is in active respiratory failure, so we will consider repeating a blood gas. It looks like the patient will have to go care home facility that way that can prepare for his condition. We will follow along closely. We will follow up infectious disease's plan if they are going to need IV antibiotics and they are going to need in a care home facility versus going home. Job#: [id number] HINA
[2017-11-22] MEDS: TRAZODONE HCL 50 MG TAB PO SCH (20:57)
[2017-11-22] MEDS: ATORVASTATIN 10 MG TAB PO SCH (20:57)
[2017-11-23] VITALS (9 sets, daily range): BP systolic 122–161; BP diastolic 60–79
[2017-11-23] MEDS ORDERED: ALTEPLASE RECOMBINANT 2 MG/2 ML VIAL IV PRN
[2017-11-23] MEDS ORDERED: WATER STERILE 10 ML VIAL IV ONE (00:36)
[2017-11-23] MEDS: VANCOMYCIN HCL 1.25 GM in SODIUM CHLORIDE 0.9% 250ML 300 ML IV SCH ×2 (01:45→22:30)
[2017-11-23] MEDS: HYDROCODONE/APAP 10MG-325MG TAB PO SCH ×5 (04:00→21:49)
[2017-11-23] MEDS: LEVOTHYROXINE SODIUM 125 MCG TAB PO SCH (05:09)
[2017-11-23] MEDS: INSULIN REGULAR, HUMAN 100 UNIT/1 ML 3ML VIAL SQ SCH ×4 (07:30→21:42)
[2017-11-23] MEDS: IPRATROPIUM BROMIDE 0.02% 2.5 ML NEB INH SCH ×4 (07:55→20:15)
[2017-11-23] MEDS: [UNRECOGNIZED DRUG - OTHER] IH SCH ×2 (07:55→20:15)
[2017-11-23] MEDS: SALMETEROL IH SCH ×2 (07:55→20:15)
[2017-11-23] MEDS: ASPIRIN 81 MG CHEW TAB PO SCH (09:14)
[2017-11-23] MEDS: DOCUSATE SODIUM 100 MG CAP PO SCH ×3 (09:14→21:42)
[2017-11-23] MEDS: MYCOPHENOLATE MOFETIL 250 MG CAP PO SCH ×2 (09:14→17:36)
[2017-11-23] MEDS: HYDROXYCHLOROQUINE SULFATE 200 MG TAB PO SCH ×2 (09:15→17:36)
[2017-11-23] MEDS: HYDROCHLOROTHIAZIDE 25 MG TAB PO SCH (09:15)
[2017-11-23] MEDS: PREDNISONE 5 MG TAB PO SCH (09:15)
[2017-11-23] MEDS: CARVEDILOL 12.5 MG TAB PO SCH ×2 (09:15→17:36)
[2017-11-23] MEDS: AMLODIPINE BESYLATE 10 MG TAB PO SCH (09:15)
[2017-11-23] MEDS: FUROSEMIDE 20 MG TAB PO SCH (09:15)
[2017-11-23] MEDS: LOSARTAN POTASSIUM 25 MG TAB PO SCH ×2 (09:15→17:36)
[2017-11-23] MEDS: CALCITRIOL 0.25 MCG CAP PO SCH (09:15)
[2017-11-23] MEDS: MUPIROCIN 2% OINT 22 GM TUBE TOP SCH ×2 (09:16→22:51)
[2017-11-23] MEDS: HEPARIN SOD (PORCINE) 5,000 UNIT/ML VIAL SC SCH ×2 (09:34→21:41)
[2017-11-23] MEDS ORDERED: VANCOMYCIN HCL 1.25 GM in SODIUM CHLORIDE 0.9% 250ML 300 ML IV ONE (10:30)
--- NOTE | 2017-11-23 13:32 | Progress Note ---
DATE: November 23, 2017 PULMONARY MEDICINE PROGRESS NOTE SUBJECTIVE: Mr. Mena was seen and examined at bedside. He continues to have dressing changes. Steady progress on the finger. Some PICC line dysfunction was troubleshooted. Having bowel movements. He is eating. REVIEW OF SYSTEMS: No bleeding. No rash. OBJECTIVE VITAL SIGNS: Afebrile. Vital signs noted per electronic record. GENERAL: In no acute distress, alert and calm. HEENT: Normocephalic, atraumatic. NECK: Supple. Throat midline. LUNGS: Bilateral air entry, a few rhonchi. CARDIOVASCULAR: S1 and S2. No murmurs, rubs, or gallops. ABDOMEN: Soft, nontender. EXTREMITIES: No clubbing, no cyanosis. There is no gail edema in the lower extremities, although in the upper extremities there is some small wrist and hand edema. INTEGUMENT: No rash. No purpura. LABS: 124 glucose, 17 vancomycin trough. IMPRESSION AND PLAN 1. Septic arthritis, abscess and cellulitis, right hand. 2. Immunosuppressed state. 3. Postoperative state, status post operative debridement of hand. 4. Obstructive sleep apnea. 5. Reported chronic obstructive pulmonary disease. 6. Interstitial lung disease, cellular. 7. Possible pulmonary hypertension. 8. Baseline lupus and rheumatoid arthritis. Continue current treatment and antibiotics. Follow up his respiratory status. Will probably end up doing blood gas repeat possibly on Saturday to re-evaluate his respiratory failure. Follow up closely. Ensure appropriate mentation. Continue immunosuppressants, knowing mycophenolate is decreased from his home dose. We will follow along closely. Job#: [id number]
[2017-11-23] MEDS: ATORVASTATIN 10 MG TAB PO SCH (21:42)
[2017-11-23] MEDS: TRAZODONE HCL 50 MG TAB PO SCH (21:42)
[2017-11-24] VITALS (8 sets, daily range): BP systolic 129–173; BP diastolic 69–87
[2017-11-24] MEDS: HYDROCODONE/APAP 10MG-325MG TAB PO SCH ×6 (00:57→20:23)
[2017-11-24] MEDS: LEVOTHYROXINE SODIUM 125 MCG TAB PO SCH (05:54)
[2017-11-24] MEDS: INSULIN REGULAR, HUMAN 100 UNIT/1 ML 3ML VIAL SQ SCH ×4 (07:30→20:25)
[2017-11-24] MEDS: IPRATROPIUM BROMIDE 0.02% 2.5 ML NEB INH SCH ×4 (07:35→20:15)
[2017-11-24] MEDS: SALMETEROL IH SCH ×2 (07:45→20:15)
[2017-11-24] MEDS: [UNRECOGNIZED DRUG - OTHER] IH SCH ×2 (07:45→20:15)
[2017-11-24] MEDS: ASPIRIN 81 MG CHEW TAB PO SCH (09:12)
[2017-11-24] MEDS: MUPIROCIN 2% OINT 22 GM TUBE TOP SCH ×2 (09:12→21:35)
[2017-11-24] MEDS: HYDROCHLOROTHIAZIDE 25 MG TAB PO SCH (09:12)
[2017-11-24] MEDS: LOSARTAN POTASSIUM 25 MG TAB PO SCH ×2 (09:12→17:30)
[2017-11-24] MEDS: CALCITRIOL 0.25 MCG CAP PO SCH (09:12)
[2017-11-24] MEDS: FUROSEMIDE 20 MG TAB PO SCH (09:12)
[2017-11-24] MEDS: MYCOPHENOLATE MOFETIL 250 MG CAP PO SCH ×2 (09:12→17:29)
[2017-11-24] MEDS: HYDROXYCHLOROQUINE SULFATE 200 MG TAB PO SCH ×2 (09:12→17:30)
[2017-11-24] MEDS: DOCUSATE SODIUM 100 MG CAP PO SCH ×3 (09:12→20:23)
[2017-11-24] MEDS: PREDNISONE 5 MG TAB PO SCH (09:12)
[2017-11-24] MEDS: AMLODIPINE BESYLATE 10 MG TAB PO SCH (09:12)
[2017-11-24] MEDS: CARVEDILOL 12.5 MG TAB PO SCH ×2 (09:12→17:30)
[2017-11-24] MEDS: HEPARIN SOD (PORCINE) 5,000 UNIT/ML VIAL SC SCH ×2 (09:13→20:24)
[2017-11-24] MEDS: VANCOMYCIN HCL 1.25 GM in SODIUM CHLORIDE 0.9% 250ML 300 ML IV SCH ×2 (09:53→21:35)
--- NOTE | 2017-11-24 15:54 | Progress Note ---
DATE: November 24, 2017 PULMONARY MEDICINE PROGRESS NOTE SUBJECTIVE: Mr. Mena was seen and examined at bedside. No acute respiratory distress episodes. He remains on 2 L per minute by oxygen flow at this time with 96% oxygen saturation. Patient is using the BiPAP machine at night. Patient with slow progress on the finger. REVIEW OF SYSTEMS: No bleeding. No rash. OBJECTIVE VITAL SIGNS: Afebrile. Vital signs noted per electronic record. GENERAL: In no acute distress, alert and calm. HEENT: Normocephalic, atraumatic. NECK: Supple. Throat midline. LUNGS: Bilateral air entry, a few rare rhonchi at the base. CARDIOVASCULAR: S1 and S2. No murmurs, rubs, or gallops. ABDOMEN: Soft, nontender. EXTREMITIES: No clubbing, no cyanosis. No edema. INTEGUMENT: No rash. No purpura. Right middle finger is bandaged. LABS: No updates. IMPRESSION AND PLAN 1. Acute hypercapnic and hypoxic respiratory failure, active. 2. Chronic respiratory failure. 3. Obesity-hypoventilation. 4. Chronic interstitial lung disease, cellular, connective tissue disease related. 5. Reported chronic obstructive pulmonary disease with exacerbation. 6. Obstructive sleep apnea and obesity-hypoventilation syndrome. 7. Admit with cellulitis, abscess and septic arthritis of right long finger. Continue IV antibiotics. Follow up progress. ID and surgeon will plan tomorrow for long-term care. Hopefully, the patient will be able to leave the hospital if he does not need any more surgery. Furthermore, the infection expert will have to consider antibiotics, and consideration may include IV antibiotics if that is the best therapy for this deep infection. Will follow along closely. Continue current medications at this time. Repeat blood gas test to assess the status of any acute component to the respiratory failure. Venous blood gas would be okay if needed and if easier with the PICC line in place. Job#: [id number]
[2017-11-24] MEDS: ATORVASTATIN 10 MG TAB PO SCH (20:23)
[2017-11-24] MEDS: TRAZODONE HCL 50 MG TAB PO SCH (21:35)
[2017-11-24] MEDS: HYDROMORPHONE 1MG/1ML INJ IV PRN (21:39)
[2017-11-25] VITALS (8 sets, daily range): BP systolic 135–164; BP diastolic 60–79
[2017-11-25] MEDS: HYDROCODONE/APAP 10MG-325MG TAB PO SCH ×6 (00:04→21:00)
[2017-11-25] MEDS: LEVOTHYROXINE SODIUM 125 MCG TAB PO SCH (06:26)
[2017-11-25] MEDS: IPRATROPIUM BROMIDE 0.02% 2.5 ML NEB INH SCH ×4 (07:00→20:05)
[2017-11-25] MEDS: [UNRECOGNIZED DRUG - OTHER] IH SCH ×2 (07:14→20:05)
[2017-11-25] MEDS: SALMETEROL IH SCH ×2 (07:14→20:05)
[2017-11-25] MEDS: INSULIN REGULAR, HUMAN 100 UNIT/1 ML 3ML VIAL SQ SCH ×4 (07:30→21:00)
[2017-11-25] MEDS: ASPIRIN 81 MG CHEW TAB PO SCH (08:25)
[2017-11-25] MEDS: DOCUSATE SODIUM 100 MG CAP PO SCH ×3 (08:25→21:00)
[2017-11-25] MEDS: CARVEDILOL 12.5 MG TAB PO SCH ×2 (08:25→17:00)
[2017-11-25] MEDS: MYCOPHENOLATE MOFETIL 250 MG CAP PO SCH ×2 (08:25→17:00)
[2017-11-25] MEDS: LOSARTAN POTASSIUM 25 MG TAB PO SCH ×2 (08:32→17:00)
[2017-11-25] MEDS: HYDROCHLOROTHIAZIDE 25 MG TAB PO SCH (08:32)
[2017-11-25] MEDS: HYDROXYCHLOROQUINE SULFATE 200 MG TAB PO SCH ×2 (08:33→17:00)
[2017-11-25] MEDS: FUROSEMIDE 20 MG TAB PO SCH (08:33)
[2017-11-25] MEDS: AMLODIPINE BESYLATE 10 MG TAB PO SCH (08:33)
[2017-11-25] MEDS: HEPARIN SOD (PORCINE) 5,000 UNIT/ML VIAL SC SCH ×2 (08:33→21:01)
[2017-11-25] MEDS: PREDNISONE 5 MG TAB PO SCH (08:33)
[2017-11-25] MEDS: CALCITRIOL 0.25 MCG CAP PO SCH (08:33)
[2017-11-25] MEDS: VANCOMYCIN HCL 1.25 GM in SODIUM CHLORIDE 0.9% 250ML 300 ML IV SCH ×2 (10:00→22:00)
[2017-11-25] MEDS: MUPIROCIN 2% OINT 22 GM TUBE TOP SCH ×2 (10:00→22:34)
--- NOTE | 2017-11-25 13:17 | Progress Note ---
DATE: November 25, 2017 PULMONARY MEDICINE PROGRESS NOTE SUBJECTIVE: Mr. Mena was seen and examined at bedside. He had evaluation of his wound. The wound has for the most part done as well as it can. The surgeon believes he just needs followup to ensure that it continues to heal versus if it totally fails. The patient is without any respiratory distress over the last day. He is eating well. Discussed with his at bedside. Discussed with ID and the surgeon, and the patient is cleared from the surgical point of view to leave the hospital. Coordination will have to be made with the family and the insurance as to how they are going to get the IV antibiotics that are required. REVIEW OF SYSTEMS: No headache. No rash. OBJECTIVE VITAL SIGNS: Afebrile. Vital signs noted per electronic record. GENERAL: In no acute distress, alert and calm. HEENT: Normocephalic, atraumatic. NECK: Supple. Throat midline. LUNGS: Bilateral air entry, a few rhonchi rare. CARDIOVASCULAR: S1 and S2. No murmurs, rubs, or gallops. ABDOMEN: Soft, nontender. EXTREMITIES: No clubbing, no cyanosis. There is only very small hand edema. INTEGUMENT: No rash. No purpura. IMPRESSION AND PLAN 1. Admit with septic arthritis, cellulitis, abscess of right long finger of the hand. 2. Postoperative state, status post debridement of above. 3. Acute respiratory failure, mild. 4. Chronic respiratory failure. 5. Obesity-hypoventilation syndrome. 6. Possible chronic obstructive pulmonary disease. 7. Interstitial lung disease, cellular due to connective tissue disease. 8. Obstructive sleep apnea. At this time, we will follow up with the insurance to see what kind of support they can give to the patient and his as they really insist they are going to get home antibiotics. The patient will have continued followup. If they choose to go to a nursing home facility for antibiotics, we will get repeat blood gas testing to give them updated information if he goes. That way, they can be prepared to handle his condition. If he is discharged, he will be discharged back to the care of Dr. Soriano, who is his doctor at [facility]. Will follow along closely. Continue steady progress, and hopefully there is further improvement of the wound with time. Job#: [id number]
[2017-11-25] MEDS: HYDROMORPHONE 1MG/1ML INJ IV PRN ×2 (13:54→19:45)
[2017-11-25] MEDS: TRAZODONE HCL 50 MG TAB PO SCH (21:00)
[2017-11-25] MEDS: ATORVASTATIN 10 MG TAB PO SCH (21:01)
[2017-11-26] VITALS: BP 123/54
[2017-11-26 04:00] VITALS: BP 138/83
[2017-11-26] MEDS: HYDROCODONE/APAP 10MG-325MG TAB PO SCH ×5 (04:00→16:00)
[2017-11-26] MEDS: HYDROMORPHONE 1MG/1ML INJ IV PRN ×2 (06:07→13:55)
[2017-11-26] MEDS: LEVOTHYROXINE SODIUM 125 MCG TAB PO SCH (06:07)
[2017-11-26] MEDS: INSULIN REGULAR, HUMAN 100 UNIT/1 ML 3ML VIAL SQ SCH ×3 (07:30→16:30)
[2017-11-26 08:00] VITALS: BP 145/82
[2017-11-26 08:03] VITALS: BP 145/82
[2017-11-26] MEDS: IPRATROPIUM BROMIDE 0.02% 2.5 ML NEB INH SCH ×3 (08:04→17:22)
[2017-11-26] MEDS: MYCOPHENOLATE MOFETIL 250 MG CAP PO SCH ×2 (08:30→17:00)
[2017-11-26] MEDS: DOCUSATE SODIUM 100 MG CAP PO SCH ×2 (08:30→15:00)
[2017-11-26] MEDS: ASPIRIN 81 MG CHEW TAB PO SCH (08:30)
[2017-11-26] MEDS: CARVEDILOL 12.5 MG TAB PO SCH ×2 (08:31→17:00)
[2017-11-26] MEDS: LOSARTAN POTASSIUM 25 MG TAB PO SCH ×2 (08:31→17:00)
[2017-11-26] MEDS: FUROSEMIDE 20 MG TAB PO SCH (08:31)
[2017-11-26] MEDS: HYDROCHLOROTHIAZIDE 25 MG TAB PO SCH (08:31)
[2017-11-26] MEDS: HEPARIN SOD (PORCINE) 5,000 UNIT/ML VIAL SC SCH (08:32)
[2017-11-26] MEDS: HYDROXYCHLOROQUINE SULFATE 200 MG TAB PO SCH ×2 (08:32→17:00)
[2017-11-26] MEDS: CALCITRIOL 0.25 MCG CAP PO SCH (08:32)
[2017-11-26] MEDS: AMLODIPINE BESYLATE 10 MG TAB PO SCH (08:32)
[2017-11-26] MEDS: PREDNISONE 5 MG TAB PO SCH (08:32)
[2017-11-26] MEDS: MUPIROCIN 2% OINT 22 GM TUBE TOP SCH (09:00)
[2017-11-26] MEDS: VANCOMYCIN HCL 1.25 GM in SODIUM CHLORIDE 0.9% 250ML 300 ML IV SCH (10:00)
[2017-11-26] MEDS: [UNRECOGNIZED DRUG - OTHER] IH SCH (11:59)
[2017-11-26] MEDS: SALMETEROL IH SCH (11:59)
[2017-11-26 12:00] VITALS: BP 130/61
--- NOTE | 2017-11-26 14:02 | Progress Note ---
DATE: November 26, 2017 PULMONARY MEDICINE PROGRESS NOTE SUBJECTIVE: Mr. Mena was seen and examined at bedside. He continues to have steady progress. The patient appears will be able to get home health nurse to help administer IV antibiotics to the patient. Therefore, movements are being made to try to get the patient discharged to home. The patient is without any new respiratory distress, although he is on oxygen. He is having trouble using our BiPAP machine due to the repetitive alarms that are coming on when he is sleeping. REVIEW OF SYSTEMS: No headache. No rash. OBJECTIVE VITAL SIGNS: Afebrile. Vital signs noted per electronic record. GENERAL: In no acute distress, alert and calm. HEENT: Normocephalic, atraumatic. NECK: Supple. Throat midline. LUNGS: Bilateral air entry, a few rhonchi. CARDIOVASCULAR: S1 and S2. No murmurs, rubs, or gallops. ABDOMEN: Soft, nontender. EXTREMITIES: No clubbing, no cyanosis. There is small edema to the hand and to the arm. INTEGUMENT: No rash. No purpura. IMPRESSION AND PLAN 1. Acute respiratory failure. 2. Chronic respiratory failure, hypercapnic and hypoxic. 3. Obstructive sleep apnea. 4. Interstitial lung disease, cellular, related to connective tissue disease. 5. Reported chronic obstructive pulmonary disease per the patient. 6. Obesity-hypoventilation syndrome suspected. 7. Admit with right long finger cellulitis, abscess and septic arthritis. Continue antibiotics. ID is trying to arrange home antibiotics. At this time, we will continue and follow up the patient's respiratory status while he is here. Adjustments will be made to BiPAP. The other option is for the patient to bring in his home device, which he has deferred for now. Hopefully, the patient can be discharged soon after home IV antibiotics are arranged, which includes some home health support for the administration of the antibiotics. Will follow along closely. Job#: [id number]
[2017-11-26 16:00] VITALS: BP 154/101
== END 2017-11-26 18:15 | disposition home or self-care (01) | DRG 500 ==
LOC: ER 11:40 → ERHOLD 15:37 → MED/SURG3 20:11
PROVIDERS: ADMIT Internal Medicine; ATTEND Internal Medicine
PROC: 0R9W0ZZ Drainage of Right Finger Phalangeal Joint, Open Approach (ICD-10-PCS; 2017-11-19)
PROC: 02HV33Z Insertion of Infusion Device into Superior Vena Cava, Percutaneous Approach (ICD-10-PCS; 2017-11-19)
PROC: 0L970ZX Drainage of Right Hand Tendon, Open Approach, Diagnostic (ICD-10-PCS; principal; 2017-11-19 08:00)
DX: M00.041 Staphylococcal arthritis, right hand (principal); J96.22 Acute and chronic respiratory failure with hypercapnia; J96.21 Acute and chronic respiratory failure with hypoxia; G62.9 Polyneuropathy, unspecified; I27.20 Pulmonary hypertension, unspecified; M32.9 Systemic lupus erythematosus, unspecified; N18.3 Chronic kidney disease, stage 3 (moderate); E66.2 Morbid (severe) obesity with alveolar hypoventilation; L02.511 Cutaneous abscess of right hand; Q27.30 Arteriovenous malformation, site unspecified; D64.9 Anemia, unspecified; L03.011 Cellulitis of right finger; E09.9 Drug or chemical induced diabetes mellitus without complications; M06.9 Rheumatoid arthritis, unspecified; Z86.711 Personal history of pulmonary embolism; Z89.611 Acquired absence of right leg above knee; T38.0X5A Adverse effect of glucocorticoids and synthetic analogues, initial encounter; I73.9 Peripheral vascular disease, unspecified; J44.9 Chronic obstructive pulmonary disease, unspecified; I12.9 Hypertensive chronic kidney disease with stage 1 through stage 4 chronic kidney disease, or unspecified chronic kidney disease; Z99.3 Dependence on wheelchair; Z87.891 Personal history of nicotine dependence; K59.00 Constipation, unspecified; E78.5 Hyperlipidemia, unspecified; M10.9 Gout, unspecified; R91.8 Other nonspecific abnormal finding of lung field; R53.81 Other malaise; B95.62 Methicillin resistant Staphylococcus aureus infection as the cause of diseases classified elsewhere; Z79.899 Other long term (current) drug therapy
CPT/HCPCS: 36415; 36600; 71045; 80048; 80053; 80202; 82550; 82553; 82805; 82948; 83605; 84484; 85025; 87040; 87071; 87075; 87186; 87205; 93005; 94640; 94660; 96367; 96372; 96376; 99284; J1170; J1644; J2001; J2250; J2270; J2405; J2543; J2997; J3370; J7030; J7050; J7512

== ENCOUNTER → 2017-12-06 | Outpatient (CLI) | payer MEDICARE ==
[~2017-12-06] MED LIST: ADVAIR HFA 230-12 GM INH; AMLODIPINE BESY10 MG PO; ASPIR 8181 MG PO; ATORVASTATIN CA10 MG PO; BUDESONIDE0.5 MG/2 M NEB; CALCITRIOL0.25 MCG PO; CARVEDILOL12.5 MG PO; FUROSEMIDE40 MG PO; GABAPENTIN400 MG PO; GLIMEPIRIDE2 MG PO; HYDROCHLOROTHIA25 MG PO; HYDROXYCHLOROQ200 MG PO; IPRATROPIU0.2 MG/1 M INH; KETOROLAC60 MG/2 ML IV; LEVOTHYROXINE50 MCG PO; LOSARTAN POTASS25 MG PO; MYCOPHENOLATE250 MG PO; NORCO 10-325 T1 EACH PO; NOVOLIN N100 UNIT/1 SQ; POTASSIUM CHLO10 ME1 PO; PREDNISONE5 MG PO; PROAIR HFA INH8.5 GM INH; PROMETHAZINE HC25 M1 PO; TESSALON PERLE100 MG PO; TRAZODONE HCL50 MG PO; VITAMIN B-121000 MC1 IM
--- NOTE | 2017-12-06 11:21 | Diagnostic Imaging Report ---
PROCEDURE: A single AP view of the chest. COMPARISON: 11/19/2017. INDICATIONS: PICC LINE PLACEMENT FINDINGS: Left upper extremity PICC has been placed, with the tip projecting over the superior cavoatrial junction. Lung volumes are low with linear opacity in the bases compatible with subsegmental atelectasis. No consolidation. Unchanged cardiomegaly without overt pulmonary edema. No acute osseous abnormality. IMPRESSION: Tip of left upper extremity PICC projects over the superior cavoatrial junction. Low lung volumes with subsegmental atelectasis in the bases. Dictated by: Roddy Paulson M.D. on 12/06/2017 at 11:21 Electronically approved by: Roddy Paulson M.D. on 12/06/2017 at 11:21
== END ==
LOC: DX 08:55
PROVIDERS: ATTEND Internal Medicine
DX: B95.62 Methicillin resistant Staphylococcus aureus infection as the cause of diseases classified elsewhere (principal)
CPT/HCPCS: 71045